=== PATIENT | male | born 1960 | race Caucasian/White ===

== ENCOUNTER 2020-01-18 09:45 | Inpatient (IN) | payer OTHER, SELFPAY ==
[2020-01-18] VITALS (41 sets, daily range): BP systolic 69–136; BP diastolic 26–102
[~2020-01-18] VITALS: Ht 188 cm; Wt 108.4 kg
--- NOTE | 2020-01-18 09:46 | NUR ---
PT BIB [facility] TO ER BED 2
--- NOTE | 2020-01-18 09:50 | NUR ---
XANDER FROM [facility] FOR ABNORMAL LABS, BUN AND CREATININE. PT PRESENTS WITH SOB, AND LABOR BREATHING W/O ACCESSORY MUSCLE USED. DISTENDED ABDOMEN AND TENDER ON PALPATION NOTICED UPON ASSESSMENT. PT DENIES CP. PT IS A&OX2, PATIENT STATES PAIN OF 10/10 AT THIS TIME; VSS; PATIENT POSITIONED FOR COMFORT; HOB ELEVATED; BEDRAILS UP X2; BED DOWN. ER MD MADE AWARE OF PT STATUS. Addendum: 01/18/20 at 1050 by MEDHR PETECHIAL HEMORRHAGES ON BILATERAL FEET WITH +3 PITTING EDEMA NOTICED. PICC LINE ON LEFT UPPER ARM IN PLACE WITH NO DRAINAGE OR BLEEDING NOTICED ON THE DRESSING.
[2020-01-18] MEDS ORDERED: HYDR-5122 PO (10:07)
[2020-01-18] MEDS ORDERED: VANC750F IV (10:07)
[2020-01-18] MEDS ORDERED: ASPI-1822 PO (10:07)
[2020-01-18] MEDS ORDERED: ACET-2619 PO (10:07)
[2020-01-18] MEDS ORDERED: MAGN2400 PO (10:07)
[2020-01-18] MEDS ORDERED: SODI650T2 PO (10:07)
[2020-01-18] MEDS ORDERED: LANTUS SUBQ (10:07)
[2020-01-18] MEDS ORDERED: BISA-213 RC (10:07)
[2020-01-18] MEDS ORDERED: MULT-1868 PO (10:07)
[2020-01-18] MEDS ORDERED: ACET-9882 PO (10:07)
[2020-01-18] MEDS ORDERED: METO25TA PO (10:07)
[2020-01-18] MEDS ORDERED: ATOR20TA PO (10:07)
[2020-01-18] MEDS ORDERED: FLOR250 PO (10:07)
[2020-01-18] MEDS ORDERED: FUROSEMIDE 40 MG/4 ML VIAL IVP ONE (10:35)
[2020-01-18] MEDS ORDERED: NITROGLYCERIN 2% 1 GM PKT TP ONE (10:35)
--- NOTE | 2020-01-18 10:40 | NUR ---
DR. MORENO IS EVALUATING PT AT BEDSIDE.
[2020-01-18 10:52] LABS: BASOPHILS # (AUTO) 0.1 K/uL (0.00-0.22); BASOPHILS % (AUTO) 0.7 % (0.0-2.0); EOSINOPHILS # (AUTO) 0.1 K/uL (0-0.4); EOSINOPHILS % (AUTO) 0.3 % (0.0-4.0); HEMATOCRIT 40.7 % (36-52); HEMOGLOBIN 13.2 g/dL (12.0-18.0); MEAN CORPUSCULAR HEMOGLOBIN 29 pg (27-31); MEAN CORPUSCULAR HGB CONC 32 g/dL (33-37); MEAN CORPUSCULAR VOLUME 90.3 fL (80-94); MONOCYTES # (AUTO) 0.8 K/uL (0.8-1.0); MONOCYTES % (AUTO) 3.7 % (1.7-9.3); NEUTROPHILS # (AUTO) 18.5 K/uL (1.8-7.7); PLATELET COUNT (AUTO) 146 K/uL (140-450); RED BLOOD CELL COUNT(AUTO) 4.51 MIL/uL (4.20-6.10); RED CELL DISTRIBUTION WIDTH 15.1 % (11.6-13.7); WHITE BLOOD COUNT (AUTO) 20.4 K/uL (4.8-10.8)
[2020-01-18 11:09] LABS: ALBUMIN 1.3 g/dL (3.4-5.0); ANION GAP 20.1 (8-16); CARBON DIOXIDE 14.5 mmol/L (21-32); POTASSIUM 5.6 mmol/L (3.5-5.1); TOTAL BILIRUBIN 0.7 mg/dL (0.0-1.0)
[2020-01-18] MEDS ORDERED: SODIUM ZIRCONIUM CYCLOSILICATE 10 GM POWD.PACK PO ONE (11:20)
[2020-01-18 11:28] LABS: BILIRUBIN,URINE NEGATIVE (NEGATIVE); BLOOD, URINE 3+ (NEGATIVE); COLOR,URINE YELLOW (YELLOW); LEUKOCYTE ESTERASE ,URINE TRACE (NEGATIVE); NITRITE, URINE NEGATIVE (NEGATIVE); PH,URINE 5.5 (5.0-9.0); UGLUCOSE NEGATIVE (NEGATIVE)
[2020-01-18 11:32] LABS: LYMPHOCYTES % (AUTO) 4.8 % (20.5-51.1); NEUTROPHILS % (AUTO) 90.5 % (42.2-75.2)
[2020-01-18 11:33] LABS: D-DIMER > 5000 ng/ml (0-400)
[2020-01-18 11:34] LABS: APPEARANCE,URINE CLOUDY (CLEAR)
[2020-01-18] MEDS ORDERED: ASPIRIN 81 MG TAB.CHEW PO ONE (11:35)
--- NOTE | 2020-01-18 11:40 | NUR ---
DR. MORENO IS REEVALUATING PT AT BEDSIDE.
[2020-01-18 11:44] LABS: RBC,URINE 11-20 (MOD) /HPF (0-5); URINE AMORPHOUS URATE 1+ /HPF (None Seen)
--- NOTE | 2020-01-18 11:45 | NUR ---
DR. GUY INTUBATED PT 7.5 @ 24 AT THE TEETH. PLACED ON MECHANICAL VENTILATION. VENTILATOR PLUGGED INTO RED OUTLET. AMBU-BAG AT BEDSIDE. WILL CONTINUE TO MONITOR.
[2020-01-18] MEDS ORDERED: ETOMIDATE 20 MG/10 ML VIAL IVP ONE ×2 (11:50)
--- NOTE | 2020-01-18 11:56 | NUR ---
Etomidate 20mg iv push via picc line on left upper arm, per dr. campos's order.
--- NOTE | 2020-01-18 11:57 | NUR ---
Dr. Rock intubated pt, RT placed pt on bib-pap.
[2020-01-18] MEDS ORDERED: SODIUM BICARBONATE 8.4% PFS 50 MEQ/50 ML SYR IVP ONE (12:05)
[2020-01-18] MEDS ORDERED: NACL 0.9% 500 ML IV ONE ×2 (12:05→16:55)
[2020-01-18] MEDS ORDERED: PIPERACILLIN/TAZOBACTAM 3.375 GM in DEXTROSE 5% 50 ML IV ONE (12:05)
[2020-01-18 12:09] LABS: FIBRINOGEN > 475 mg/dL (200-400)
[2020-01-18] MEDS ORDERED: PIPERACILLIN/TAZOBACTAM 3.375 GM VIAL IV ONE (12:10)
[2020-01-18 12:30] LABS: LACTATE DEHYDROGENASE 543 U/L (85-227)
[2020-01-18] MEDS ORDERED: PROPOFOL 1000 MG/100 ML PREMIX 100 ML IV ONE ×4 (12:33→18:33)
--- NOTE | 2020-01-18 12:57 | NUR ---
PROPOFOL STOPPED AT THIS TIME D/T BLOOD PRESSURE. DR. MORENO MADE AWARE.
[2020-01-18] MEDS ORDERED: LORazepam 2 MG/ML VIAL IVP PRN (13:15)
[2020-01-18] MEDS ORDERED: MORPHINE SULFATE 2 MG/ML SYR IVP PRN (13:15)
[2020-01-18] MEDS ORDERED: SODIUM BICARBONATE 8.4% 150 MEQ in DEXTROSE 5% 1,000 ML IV SCH (13:24)
--- NOTE | 2020-01-18 14:00 | NUR ---
FLU, RSV, AND COVID SWABS COLLECTED AT BEDSIDE.
--- NOTE | 2020-01-18 14:14 | NUR ---
PT CAN BE WOKEN UP BY VOICE/ CALLING HIS NAME. PROPOFOL RESUMED.
--- NOTE | 2020-01-18 14:24 | NUR ---
PT HAS REACHED THE RASS SCALE OF -2. HELD PROPOFOL FOR NOW.
--- NOTE | 2020-01-18 15:05 | NUR ---
PT ADMITTED FROM ER AT THIS TIME. PT AAOX0, FLACC 0, NO RESPIRATORY DISTRESS NOTED. RESPIRATIONS EVEN AND UNLABORED ON ETT TO VENT IN ACVC MODE FIO2 100%, TV500, RR16 AND PEEP 5. SKIN NON INTACT WITH SACRAL WOUND PRESENT, PICTURE IN CHART. SINUS TACHY ON HEART MONITOR. MOMIN IN PLACE. L UA PICC IN PLACE INFUSING PER ORDER, PATENT AND ASYMPTOMATIC. ON PROPOFOL. RESTRAINTS IN PLACE. SAFETY MEASURES IN PLACE. CALL LIGHT WITHIN REACH. BED IN LOW POSITION. WILL CONTINUE TO MONITOR.
--- NOTE | 2020-01-18 15:05 | NUR ---
Patient will be admitted to care of KINJAL AND RESP FAILURE. Admited to ICU. Will go to room 2. Belongings list completed. Report to DANNI GILBERT.
[2020-01-18 15:16] LABS: RSV NEGATIVE (NEGATIVE)
--- NOTE | 2020-01-18 17:02 | NUR ---
500ML BOLUS GIVEN FOR LOW BP PER DR SAUL.
--- NOTE | 2020-01-18 18:00 | NUR ---
1L BOLUS GIVEN AND 25% ALBUMIN X 2 ADMINISTERED AT THIS TIME PER DR SAUL.
[2020-01-18] MEDS ORDERED: NACL 0.9% 1,000 ML IV ONE (18:20)
[2020-01-18] MEDS ORDERED: ALBUMIN HUMAN 25% 100 ML IV ONE ×2 (18:20)
[2020-01-18 18:37] LABS: ANION GAP 19.3 (8-16); CARBON DIOXIDE 14.8 mmol/L (21-32); CREATININE 3.3 mg/dL (0.6-1.3); POTASSIUM 5.1 mmol/L (3.5-5.1)
--- NOTE | 2020-01-18 19:20 | NUR ---
REPORT GIVEN TO NIGHT NURSE FOR CONTINUITY OF CARE.
--- NOTE | 2020-01-18 20:00 | NUR ---
REPORT RECEIVED FROM ARTEMIO RAZO. SEDATED RASS -1. ETT TO VENT. AC/VC MODE FIO2 80%, TV 500, RATE 16, PEEP 5. SINUS RHYTHM ON MONITOR. IV JACK MIDLINE. ON PROPOFOL DRIP. DRY WEIGHT 110 KG. PT ON BILAT SOFT WRIST RESTRAINTS. MOMIN CATHETER IN PLACE. SKIN NON INTACT. SEE WOUND ASSESSMENT. HOB 30 DEGREES. BED LOCKED IN LOWEST POSITION. WILL CONTINUE TO MONITOR.
[2020-01-18] MEDS: MIDAZOLAM MDV 50 MG in NACL 0.9% 40 ML IV PRN ×2 (20:17→23:30)
[2020-01-18] MEDS ORDERED: MIDAZOLAM MDV 50 MG/10 ML VIAL IV ONE ×2 (20:17→23:19)
--- NOTE | 2020-01-18 20:17 | NUR ---
PROPOFOL DRIP DISCONTINUED. STARTED ON VERSED, FENTANYL AND LEVOPHED DRIPS. WILL CONTINUE TO MONITOR.
[2020-01-18] MEDS: fentaNYL 1 MG in NACL 0.9% 80 ML IV PRN (20:20)
[2020-01-18] MEDS ORDERED: NOREPINEPHRINE 4 MG/4 ML VIAL IV ONE (20:20)
[2020-01-18] MEDS ORDERED: fentaNYL 0.05 MG/ML VIAL ONE (20:20)
[2020-01-18] MEDS: NOREPINEPHRINE 4 MG in DEXTROSE 5% 250 ML IV PRN (20:21)
[2020-01-18] MEDS: HYDROCORTISONE NA SUCC 100 MG/2 ML VIAL IV SCH (21:00)
[2020-01-18] MEDS ORDERED: PIPERACILLIN/TAZOBACTAM 2.25 GM in DEXTROSE 5% 50 ML IV SCH (21:00)
[2020-01-18] MEDS ORDERED: VANCOMYCIN PER PHARMACY MC PRN (21:35)
--- NOTE | 2020-01-18 22:12 | NUR ---
PT ON LEVOPHED, FENTANYL, AND VERSED DRIPS WILL CONTINUE TO MONITOR.
[2020-01-18] MEDS ORDERED: VANCOMYCIN 2,000 MG in DEXTROSE 5% 500 ML IV ONE (22:15)
[2020-01-18] MEDS ORDERED: cefTRIAXone 1,000 MG VIAL ONE (23:54)
[2020-01-18] MEDS ORDERED: VANCOMYCIN 1,000 MG VIAL ONE (23:55)
[2020-01-19] VITALS (97 sets, daily range): BP systolic 67–119; BP diastolic 39–85
--- NOTE | 2020-01-19 00:50 | NUR ---
PT TAKEN TO CT SCAN. ACCOMPANIED BY RN, SPOT WELDER AND RT. NO COMPLICATIONS NOTED.
--- NOTE | 2020-01-19 01:17 | NUR ---
PT TRANSFERRED BACK TO ICU-2. NO COMPLICATIONS NOTED. PT STABLE. WILL CONTINUE TO MONITOR.
--- NOTE | 2020-01-19 01:20 | NUR ---
PT WAS TRANSFERRED TO CT AND BACK W/ NO COMPLICATIONS PT TOLERATED TRANSFER WELL
[2020-01-19] MEDS ORDERED: FUROSEMIDE 100 MG/10 ML VIAL IV ONE (02:35)
--- NOTE | 2020-01-19 03:30 | NUR ---
RECEIVED CALL FROM DR BOWER TO GIVE LASIX 60MG ONCE. WILL CONTINUE TO MONITOR. Addendum: 01/19/20 at 0755 by Lorenzo Richardson RN RECEIVED CALL FROM DR DONIS FOR ORDERS FROM [facility] NOT DR BOWER
[2020-01-19] MEDS ORDERED: FUROSEMIDE 40 MG/4 ML VIAL IVP ONE (03:39)
--- NOTE | 2020-01-19 04:00 | NUR ---
AM LABS DRAWN.
[2020-01-19] MEDS: HYDROCORTISONE NA SUCC 100 MG/2 ML VIAL IV SCH ×3 (04:29→21:21)
[2020-01-19] MEDS ORDERED: MIDAZOLAM MDV 50 MG/10 ML VIAL IV ONE (05:41)
[2020-01-19] MEDS: MIDAZOLAM MDV 50 MG in NACL 0.9% 40 ML IV PRN ×3 (06:02)
--- NOTE | 2020-01-19 06:15 | NUR ---
ABG RESULTS WERE REPORTED TO DR. SMITH. ORDERED 2 AMP OF BICARBONATE. DRY WALL INSTALLER WAS NOTIFIED IMMEDIATELY.
[2020-01-19 06:35] LABS: BASOPHILS % (AUTO) 0.2 % (0.0-2.0); EOSINOPHILS % (AUTO) 0.1 % (0.0-4.0); HEMATOCRIT 29.1 % (36-52); LYMPHOCYTES # (AUTO) 0.6 K/uL (2.0-11.5); LYMPHOCYTES % (AUTO) 3.9 % (20.5-51.1); MEAN CORPUSCULAR HEMOGLOBIN 29 pg (27-31); MEAN CORPUSCULAR HGB CONC 32 g/dL (33-37); MEAN CORPUSCULAR VOLUME 91.8 fL (80-94); MONOCYTES # (AUTO) 0.4 K/uL (0.8-1.0); MONOCYTES % (AUTO) 2.4 % (1.7-9.3); NEUTROPHILS # (AUTO) 14.9 K/uL (1.8-7.7); NEUTROPHILS % (AUTO) 93.4 % (42.2-75.2); PLATELET COUNT (AUTO) 96 K/uL (140-450); RED BLOOD CELL COUNT(AUTO) 3.17 MIL/uL (4.20-6.10); RED CELL DISTRIBUTION WIDTH 15.6 % (11.6-13.7)
[2020-01-19 06:38] LABS: HEMOGLOBIN 9.4 g/dL (12.0-18.0); WHITE BLOOD COUNT (AUTO) 15.7 K/uL (4.8-10.8)
[2020-01-19] MEDS ORDERED: SODIUM BICARBONATE 8.4% PFS 50 MEQ/50 ML SYR IVP ONE ×2 (06:42→06:45)
--- NOTE | 2020-01-19 06:50 | NUR ---
FIO2 WAS TITRATED DOWN FROM 100% TO 60% THROUGHOUT THE NIGHT PT TOLERATED WELL
[2020-01-19 06:59] LABS: ALBUMIN 1.3 g/dL (3.4-5.0); ANION GAP 20.3 (8-16); CARBON DIOXIDE 14.3 mmol/L (21-32); POTASSIUM 4.6 mmol/L (3.5-5.1); TOTAL BILIRUBIN 0.7 mg/dL (0.0-1.0)
--- NOTE | 2020-01-19 08:15 | NUR ---
TITRATE FIO2 TO 50%. SAT REMAIN STABLE AT 95%. WILL CONTINUE TO MONITOR
[2020-01-19] MEDS ORDERED: MIDAZOLAM MDV 100 MG in NACL 0.9% 80 ML IV PRN (09:00)
--- NOTE | 2020-01-19 09:00 | NUR ---
INCONTINENT OF LARGE AM[place] LOOSE GREENISH BROWN STOOLS. BATH GIVEN. INCONTINENT DERMATITIS ON PERINEAL AND BUTTOCKS AREAS. OPEN SKIN AREA ON RT AND LEFT BUTTOCKS.
--- NOTE | 2020-01-19 09:21 | NUR ---
PATIENT HAS BEEN SCREENED AND CATEGORIZED HIGH NUTRITION RISK. PATIENT WILL BE SEEN WITHIN 1-2 DAYS OF ADMISSION. 01/19/20-01/20/[address]
--- NOTE | 2020-01-19 09:50 | NUR ---
DR. BANDAR DE LA CRUZ CAME IN TO INSERT VENU CATHETER, JOSIE RAZO ASSISTED AT BEDSIDE, TIME OUT AT 0930, VENU CATHETER INSERTED TO RIGHT INTRAJUGULAR VEIN, CXR CONFIRMED PLACEMENT, DR. ARAUJO ORDERED HD TODAY, CALLED [facility], WILL COME LATER.
--- NOTE | 2020-01-19 10:30 | NUR ---
DR. PUGA CAME IN PER DR. SAUL REQUEST, HE SPOKE TO PATIENT'S AND OBTAINED CONSENT FOR PARACENTESIS, TWO RNS WITNESS OF THE CONSENT, DR. PUGA PERFORMED PARACENTESIS AT BEDSIDE, JOSIE RAZO ADMINISTRATIVE ASSISTANT RECEPTIONIST, DRAINED 5750ML OF FLUID, SENT SAMPLES TO LAB.
[2020-01-19] MEDS ORDERED: Z-GUARD PASTE TP ONE (10:47)
--- NOTE | 2020-01-19 11:47 | NUR ---
DISCHARGE PLANNING: THIS IS A 59 Y/O MALE PATIENT FROM HOME, WHO WAS BIBA DUE TO SHORTNESS OF BREATH AND LOWER EXTREMITY SWELLING. PAST MEDICAL HISTORY INCLUDE STROKE, DIABETES, HTN AND OBESITY. ORALLY INTUBATED TO VENT, FIO2 50%, O2 SAT 93%. SEDATED WITH FENTANYL AND VERSED DRIPS. ON LEVOPHED DRIP. INITIAL DIAGNOSIS OF ACUTE KIDNEY INJURY AND RESPIRATORY FAILURE. CURRENT LABS INCLUDE WBC 15.7, H/H 9.4/29.1, NA/K 134/4.6, BUN/CREA 110/3.0, ALB 1.3, D DIMER >500 AND FIBRINOGEN >475. COVID 19 PENDING. NEGATIVE FOR INF A AND B AND RSV ANTIGEN. ON ROCEPHIN AND SOLU-CORTEF. CURRENT CXR SHOWED NO SIGNIFICANT INTERVAL CHANGE COMPARED TO PRIOR STUDY. ID, NEPHRO AND CARDIO CONSULTS IN PLACE. DC PLAN PENDING ON PATIENT'S RESPONSE TO TREATMENT. Addendum: 01/20/20 at 1131 by Ludy Camejo S/P PARACENTESIS YESTERDAY WITH DR PANDEY - 5750 ML OUT. S/P RIGHT IJ VENU CATH WITH DR. DE LA CRUZ YESTERDAY. HD YESTERDAY. ETT TO VENT FIO2 30%, O2 SAT 100%. SEDATED WITH VERSED AND FENTANYL. ON LEVOPHED DRIP. Addendum: 01/22/20 at 1044 by Ludy Camejo CM STILL IN ICU, ORALLY INTUBATED TO VENT-FIO2 28%, O2 SAT 94%. SEDATED WITH FENTANYL AND VERSED. WITH MULTIPLE PRESSURE INJURIES TO SACRALCOCCYX, R/L BUTTOCKS AND LEFT HEEL. ON HD-LAST HD ON 01/19/2020. NEGATIVE FOR COVID. ON VANCOMYCIN AND SOLU-CORTEF. SEEN BY ATTENDING - F/U BLOOD CS. SEEN BY NEPHRO - NO NEED FOR HD YESTERDAY. Addendum: 01/22/20 at 1522 by Ludy Camejo CM RECEIVED A CALL FROM CHARGE NURSE AMRITA, STATING THAT SHE RECEIVED A CALL FROM PATIENT'S BROTHER STATING NOT TO RELEASE ANY INFORMATION TO [facility]. CONTACTED [facility], ABLE TO SPEAK TO DIVINA. PER DIVINA PATIENT DOES NOT HAVE A MEDICAL DECISION MAKER ASSIGNED BECAUSE PATIENT WAS ALERT AND ORIENTED AND MAKES HIS OWN MEDICAL DECISIONS. HE ALSO STATED THEY HAVE BEEN ASKING MARRIAGE CERTIFICATE FROM [facility] AND [facility] WAS NOT ABLE TO PROVIDE ONE. FELICIANO (DAUGHTER) IS THE NEXT OF KIN HOWEVER FELICIANO LIVES OUT OF STATE. RECEIVED A CALL FROM JUANITA AVALOSN LUBA [phone], CLAIMING THAT SHE IS THE ELDEST DAUGHTER OF THE PATIENT, HOWEVER SHE LIVES OUT OF STATE ([place]) INFORMED HER THAT I DO NOT HAVE HER NAME LISTED IN OUR FILE. I ASKED HER IF SHE CAN SEND ME ANY DOCUMENTATIONS TO PROVE THAT SHE IS THE DAUGHTER OF THE PATIENT. SHE STATED SHE WILL BE SENDING ME A CERTIFICATE TO PROVE. PROVIDED HER WITH FAX NUMBER AND EMAIL TO SEND IT. CONTACTED PATIENT'S DAUGHTER FELICIANO AT [phone] AND WAS ANSWERED BY [facility]UKAS WHEELER. PER LUKAS, FELICIANO WENT HOME TO [place]. I ASKED HER IF SHE HAS FELICIANO'S NUMBER AND IF SHE AND THE PATIENT ARE . SHE WAS UPSET AND STATED "WE ARE NOT BUT WE HAVE BEEN LIVING TOGETHER FOR 7 YEARS, I YOU WANT TO TAKE OUT ALL MY RIGHTS FINE. GO AHEAD" AND HANG UP. GOT FELICIANO'S NUMBER FROM ICU CHARGE NURSE [phone]. CONTACTED THE PROVIDED NUMBER, ABLE TO SPEAK TO FELICIANO. SHE CONFIRMED THAT JUANITA IS HER OLDER SISTER AND THEY BOTH LIVE OUT OF STATE ([place]). SHE ALSO STATED THAT SINCE L[facility] HAS BEEN THE ONE TAKING CARE OF THEIR FATHER, SHE SHOULD BE ALLOWED TO GET UPDATES REGARDING HER FATHER'S CONDITION. I EXPLAINED TO HER THAT FOR UPDATES, YES WE CAN PROVIDE THAT TO [facility] BUT SINCE [facility]AS AND THE PATIENT ARE NOT LEGALLY THE NEXT OF KIN WILL BE THE ONES WHO WILL BE MAKING MEDICAL DECISIONS FOR THE PATIENT. AND SHE VERBALIZED UNDERSTANDING. I ALSO INFORMED HER THAT HER AND JUANITA NEED TO DECIDE WELL WHO WILL BE THE DESIGNATED SPOKESPERSON FOR THE FAMILY TO GET UPDATES, SINCE IT WILL BE HARD FOR THE NURSES TO COME TO THE PHONE AND PROVIDE INFORMATION TO EVERYBODY CALLING. SHE VERBALIZED UNDERSTANDING. RECEIVED AN EMAIL FROM JUANITA VERDUZCO WITH A CERTIFICATE ATTACHMENT. CONTACTED JUANITA TO CONFIRM TO HER THAT I RECEIVED THE EMAIL. AND I ALSO DISCUSSED WITH HER THAT HER AND FELICIANO NEED TO DISCUSS/DECIDE ON WHO WILL BE THE DESIGNATED SPOKESPERSON. SHE STATED "YES, I WILL TALK TO HER." CANDY OF ADMITTING INFORMED TO UPDATE FELICIANO'S CONTACT INFORMATION. Addendum: 01/23/20 at 1209 by Ludy Camejo CM STILL ORALLY INTUBATED, SEDATED. FAILED WEANING TRIALS YESTERDAY. WILL TRY TO AGAIN TODAY. SEEN BY NEPHRO - NO NEED FOR HD TODAY, PROBABLY COULD DC HD CATH SOON, AVOID NEPHROTOXIC AGENTS. SEEN BY ATTENDING - CONT VENT AND WEANING TRIAL. BLOOD AND SPUTUM MRSA POSITIVE, ON VANCOMYCIN. 2ND BLOOD CS NO GROWTH AFTER 24 HOURS. DC PLAN PENDING ON PATIENT'S RESPONSE TO TREATMENT. Addendum: 01/23/20 at 1210 by Ludy Camejo CM CORRECTION ON THE NOTES MADE [place] 01/19/2020 [place] [address]: PATIENT IS FROM [place] AND NOT FROM HOME. Addendum: 01/26/20 at 0947 by Ludy Camejo CM STILL ON ETT TO VENT, FIO2 28%, O2 SAT 100%. SEDATED WITH VERSED AND FENTANYL. ON LEVOPHED DRIP. SEEN BY NEPHRO - HD CATH DC'D YESTERDAY, AVOID NEPHROTOXIC AGENTS. SEEN BY ID - CONTINUE VANCOMYCIN THERAPY, CONSIDER ECHOCARDIOGRAM FOR FURTHER EVALUATION. CURRENT CXR SHOWED NO SIGNIFICANT INTERVAL CHANGE IN THE LUNG VOLUMES WITH INCREASED PULMONARY VASCULARITY AND BIBASILAR ATELECTASIS/INFILTRAE/TRACE PLEURAL EFFUSIONS. LUE US SHOWED NO EVIDENCE OF DVT. DC PLAN PENDING ON PATIENT'S RESPONSE TO TREATMENT. Addendum: 01/27/20 at 1117 by Ludy Camejo CM STILL IN ICU, ORALLY INTUBATED TO VENT FIO2 24%, O2 SAT 99%. FOR VENT WEANING AGAIN TODAY, ABLE TO DO 2 HOURS YESTERDAY. ON SEDATION VACATION AND NOT ON ANY DRIPS. CURRENT LABS INCLUDE WBC 15.3, H/ 10.2/31.9, 144/3.4, BUN/CREA 77/1.8 AND ALB 2.3. ON SOLU CORTEF. BLOOD AND SPUTUM MRSA POSITIVE. Addendum: 01/28/20 at 0950 by Ludy Camejo CM EXTUBATED YESTERDAY 01/27/2020 AT 1745. ON O2 AT 3 LPM/NC. ON SOLU CORTEF AND VANCOMYCIN. Addendum: 01/29/20 at 1322 by Shaneka Michaels CM DC PLANING: K+ 2.4 REPLACED POTASSIUM 80 MEQ GT. STILL NEEDS O2 3L/NC. SEEN BY DIRECTOR OF CONTENT AND PROGRAMMING DR JOANNE Menendez ORDERED TO CONTINUE CURRENT THERAPY NO INDICATION FOR BETA MISTY. DC PLANNING TO GO BACK TO [facility] WHEN STABLE. CM TO FOLLOW. Addendum: 02/03/20 at 1339 by Ludy Camejo RECEIVED A CALL FROM PATIENT'S DAUGHTER TORIE VERDUZCO [phone], STATING THAT BOTH HER AND SISTER FELICIANO DECIDED NOT TO PROVIDE ANY INFORMATION TO PATIENT'S LIVING PARTNER [facility]. EXPLAINED TO HER THE REASON WHY HER AND FELICIANO WAS CONTACTED BECAUSE PATIENT CANNOT DECIDE FOR HIMSELF BECAUSE HE WAS INTUBATED AND LEGALLY MEDICAL DECISIONS WILL COME FROM THE CHILDREN SINCE LUKAS AND THE PATIENT ARE NOT . PER THE RN ON SUNDAY THE PATIENT HIMSELF REQUESTED TO SPEAK TO [facility]. SHE ALSO STATED THAT [facility], HAS BEEN WITHDRAWING THE PATIENT'S SS TO PAY FOR BILLS. EXPLAINED TO HER THAT WITH FINANCIAL ISSUES, I CANNOT HELP. IT HAS TO COME FROM THE PATIENT BECAUSE HE IS MORE COHERENT AT THIS TIME. I ALSO INFORMED HER THAT THE TENTATIVE PLAN FOR THE PATIENT TO GO TO [facility]S ORDER. SHE ALSO STATED THAT FELICIANO AND HER HAVE DECIDED FOR THE PATIENT NOT TO GO BACK TO [facility], BECAUSE THE PATIENT DEVELOPED BEDSORES IN THERE. I ASKED HER IF THEY DISCUSSED IT WITH [facility], SHE ANSWERED NO. SHE STATED HER AND FELICIANO HAVE DECIDED TOO THAT THEY WANT THE PATIENT TO GO TO [place] WHERE SHE AND FELICIANO ARE LOCATED. INFORMED HER THAT WITH THE PATIENT'S CONDITION AT THIS TIME, IT IS NOT APPROPRIATE FOR HIM TO TRAVEL. SHE VERBALIZES UNDERSTANDING. Addendum: 02/03/20 at 1649 by Ludy Camejo RECEIVED AN ORDER [facility]. CONTACTED PATIENT'S DAUGHTER FELICIANO AT FIRST SHE SAID NO. HOWEVER I EXPLAINED IT TO HER, THAT WITH THE SITUATION RIGHT NOW IT WILL BE HARDER TO FIND ACCEPTING SNF AND SHE VERBALIZED UNDERSTANDING BY SAYING "IT IS OK, HE CAN GO BACK [facility]." DC DISTRIBUTION TRANSFORMER ASSEMBLER MADE AWARE. [facility] MADE AWARE. SHE STATED OK WITH JUST ONE COVID AND THEY CAN RETEST IN THEIR FACILITY. DR. LE MADE AWARE. RECEIVED A CALL FROM DR. LE TO HOLD THE DC. HE WANTS TO REPEAT THE BLOOD CS. [facility]ADE AWARE. CHUCHO OF [facility] MADE AWARE. PATIENT'S DAUGHTER FELICIANO MADE AWARE.
[2020-01-19] MEDS ORDERED: Z-GUARD PASTE TP PRN (12:00)
[2020-01-19] MEDS: Z-GUARD PASTE TP SCH (13:12)
[2020-01-19] MEDS: fentaNYL 1 MG in NACL 0.9% 80 ML IV PRN (13:12)
[2020-01-19] MEDS: NOREPINEPHRINE 4 MG in DEXTROSE 5% 250 ML IV PRN (13:13)
--- NOTE | 2020-01-19 13:23 | NUR ---
ADEL[facility] PATTERSON CAME IN, WILL START HD.
[2020-01-19] MEDS ORDERED: DEXTROSE 50% 50 ML SYR IVP PRN (13:40)
[2020-01-19] MEDS ORDERED: PANTOPRAZOLE 40 MG INJ VIAL IVP SCH (13:57)
--- NOTE | 2020-01-19 14:05 | NUR ---
Wound consult pending, Pt. had procedures this morning and at this time pt. is on dialysis and BP 70/52. Addendum: 01/19/20 at 1500 by Linh Khanna RN ([facility]) Admission wound photo reviewed with full thickness skin loss to sacral coccyx and the bilateral feet ischemia/ erythema toes to plantar and dorsal areas. wound care started per protocol, poc discussed with CN, recommend flow study Bilateral lower extremities.
[2020-01-19] MEDS: NACL 0.9% 1,000 ML IV SCH (14:34)
--- NOTE | 2020-01-19 14:35 | NUR ---
IV CHANGED TO 0.9NS AT 75 ML/HR
[2020-01-19] MEDS ORDERED: NOREPINEPHRINE 16 MG in DEXTROSE 5% 250 ML IV PRN (14:40)
--- NOTE | 2020-01-19 14:52 | NUR ---
DEPOSIT CLERK NOTE: Patient's Orientation Person Situation Place Time Information Provided By MAIKEL - CHARGE NURSE Comments PATIENT IS SELF-RESPONSIBLE FOR MEDICAL DECISIONS. Oil Paint Shader, Realtionship and Phone Number [facility] WHEELER [phone] [facility] Power of Ambulance Driver Paramedic No Does Patient Have a POLST No Identifying Problems No Social Work Triggers Is A Social Work Consult Needed No Mandate Report Filed No Explanation Of Identifying Problems PATIENT IS A 59-YEAR-OLD MALE ADMITTED FOR KINJAL RESPIRATORY FAILURE. PATIENT HAS PMHX OF STROKE, DIABETES, HYPERTENSION, AND OBESITY. [facility] - [phone] Pre-Admission Level Of Functioning Status Assist With ADL Level Of Functioning Comment PATIENT IS ABLE TO FEED HIMSELF, BUT REQUIRES ASSISTANCE WITH ALL OTHER ADLS. Prior Resources/Services Used In Last 12 Months SNF Rehab/Skilled Prior DME Wheelchair Financial Issues No Known Financial Issue Factors/Needs SNF/NH Placement Discharge Plan Comments TENTATIVE DISCHARGE PLAN IS FOR PATIENT TO RETURN TO [facility]. DC Plan Status Initiated
--- NOTE | 2020-01-19 15:10 | NUR ---
ECHOCARDIOGRAM PENDING, R/O COVID-19
--- NOTE | 2020-01-19 16:30 | NUR ---
HEMODIALYSIS COMPLETED.
--- NOTE | 2020-01-19 17:03 | NUR ---
01/19/20 RD INITIAL ASSESSMENT COMPLETED PLEASE REFER TO NUTRITION ASSESSMENT UNDER CARE ACTIVITY FOR ESTIMATED NUTRITIONAL NEEDS. 1. CONSIDER ENTERAL NUTRITION WITH NEPRO 1.8 @ 35 ML/HR WITH PROSOURCE BID -THIS WILL PROVIDE 1632 CALORIES AND 98 GM OF PROTEIN, WHICH MEETS 100% OF NUTRIENT NEEDS 2. CONSIDER VITAMIN C AND ZINC FOR WOUND HEALING 3. IF PATIENT IS EXTUBATED RECOMMEND SWALLOW EVALUATION 4. RD TO FOLLOW-UP 2-3 DAYS, HIGH RISK [address]VIN JOHNSON RD
[2020-01-19] MEDS: BLOOD GLUCOSE MONITORING 1 DEV DEV FS SCH (17:25)
[2020-01-19] MEDS: INSULIN LISPRO SLIDING SCALE 100 UNITS/ML VIAL SUBQ PRN (17:27)
--- NOTE | 2020-01-19 18:00 | NUR ---
ETT TO VENT TV 500, FI02 50% AC 16/MIN PEEP 5. NO RESP. DISTRESS NOTED. RASS -1. FENTANYL DRIP AT 0.5 MCG/KG/MIN.
--- NOTE | 2020-01-19 19:00 | NUR ---
REPORT GIVEN TO AHSAN RAZO.
--- NOTE | 2020-01-19 19:15 | NUR ---
RECEIVED BEDSIDE REPORT FROM MORNING NURSE, PATIENT SEDATED RASS-2, EET TO VENT WITH VENT, FIO2 40%, VT 500, R 16, PEEP 5. O2 SAT ABOVE 93%. BILATERAL LUNGS SOUND DIMINISHED, NO ACUTE RESPIRATORY DISTRESS NOTED. SR ON FULL TIME BABYSITTER. PICC LINE TO LEFT UPPER ARM, DIALYSIS VENU CATH WITH PIG TO RIGHT IJ, RUNNING WITH LEVOPHED 11MCG/MIN= 10.31ML/HR, FENTANYL 50MCG/HR= 5ML/HR, AND NS 75ML/HR. F/C IN PLACE. GEN BODY WEAKNESS NOTED. BILATERAL WRISTS RESTRAINT ON FOR SAFETY. PRESSURE ULCER TO RIGHT BUTTOCK 4X3X0,1, LEFT BUTTOCK 3X2X0,1, SACRAL 2X0.5X0.1. DERMATITIS TO GROIN AREA, RASH TO BILATERAL FEET AND HANDS. BILATERAL SIDERAILS UP, BED IN LOW POSITION, CALL LIGHT WITHIN REACH. WILL CONTINUE TO MONITOR.
[2020-01-19 23:34] LABS: GLUCOSE,BODY FLUID 270 mg/dL
[2020-01-20] VITALS (104 sets, daily range): BP systolic 92–143; BP diastolic 49–99
[2020-01-20] MEDS: INSULIN LISPRO SLIDING SCALE 100 UNITS/ML VIAL SUBQ PRN ×4 (01:16→17:42)
[2020-01-20] MEDS: Z-GUARD PASTE TP SCH ×2 (01:18→11:53)
[2020-01-20] MEDS: NACL 0.9% 1,000 ML IV SCH ×2 (03:00→17:21)
[2020-01-20] MEDS: HYDROCORTISONE NA SUCC 100 MG/2 ML VIAL IV SCH ×3 (05:00→20:06)
[2020-01-20 05:11] LABS: HEMATOCRIT 33.6 % (36-52); HEMOGLOBIN 10.8 g/dL (12.0-18.0); MEAN CORPUSCULAR HEMOGLOBIN 29 pg (27-31); MEAN CORPUSCULAR HGB CONC 32 g/dL (33-37); PLATELET COUNT (AUTO) 168 K/uL (140-450); RED BLOOD CELL COUNT(AUTO) 3.74 MIL/uL (4.20-6.10); RED CELL DISTRIBUTION WIDTH 15.6 % (11.6-13.7); WHITE BLOOD COUNT (AUTO) 22.6 K/uL (4.8-10.8)
[2020-01-20 05:33] LABS: ALBUMIN 1.2 g/dL (3.4-5.0); ANION GAP 14.2 (8-16); CARBON DIOXIDE 22.7 mmol/L (21-32); CREATININE 2.9 mg/dL (0.6-1.3); POTASSIUM 3.9 mmol/L (3.5-5.1); TOTAL BILIRUBIN 0.4 mg/dL (0.0-1.0)
[2020-01-20 05:34] LABS: PHOSPHORUS 6.9 mg/dL (2.5-4.9)
--- NOTE | 2020-01-20 05:55 | NUR ---
PHONE CALL FROM PTS [facility], UPDATED ON PTS PRESENT CONDITION. WANTS MD TO CALL HER FOR UPDATE.WILL ENDORSE TO NEXT SHIFT
[2020-01-20] MEDS: BLOOD GLUCOSE MONITORING 1 DEV DEV FS SCH ×4 (06:02→17:41)
[2020-01-20 06:10] LABS: HEPATITIS A ANTIBODY IGM Negative (Negative); HEPATITIS B CORE AB TOTAL Negative (Negative); HEPATITIS B SURFACE ANTIBODY Non Reactive (.); HEPATITIS B SURFACE ANTIGEN Negative (Negative)
[2020-01-20 06:12] LABS: LYMPHOCYTES % (MANUAL) 1 % (20-46); MONOCYTES % (MANUAL) 4 % (5-12)
--- NOTE | 2020-01-20 07:30 | NUR ---
RECEIVED REPORT FROM SUPERINTENDENT CUSTODIAN JANITOR RN. PT IS ETT TO VENT, LIP LINE 23 CM. PERRL 3MM. AC/VC FIO2 30%, TV 500, RATE 16, PEEP 5. SEDATED WITH FENTANYL RASS -2. SINUS RHYTHM ON MONITOR WITH PVC. IV JACK PICC RUNNING FENTANYL RUNNING AT 4ML/HR, DRY WEIGHT 110 KG. RIGHT IJ VENU WITH PIGTAIL RUNNING LEVOPHED AT 15MCG/MIN. PT HAS ANASARCA WITH PITTING EDEMA. PT ON BILATERAL SOFT WRIST RESTRAINTS. MOMIN CATHETER IN PLACE, DRAINING CLEAR YELLOW URINE. SKIN NON INTACT. SEE WOUND ASSESSMENT. HOB 30 DEGREES. BED LOCKED IN LOWEST POSITION. WILL CONTINUE TO MONITOR. Addendum: 01/20/20 at 1914 by Loyd Crawford RN DRY WT 110KG
--- NOTE | 2020-01-20 08:30 | NUR ---
MOMIN CARE DONE, ORAL CARE DONE. PT OPENS EYES TO NAME, BUT DOES NOT REALLY FOLLOW COMMANDS.
[2020-01-20] MEDS: PANTOPRAZOLE 40 MG INJ VIAL IVP SCH (08:43)
[2020-01-20] MEDS: fentaNYL 1 MG in NACL 0.9% 80 ML IV PRN (08:45)
--- NOTE | 2020-01-20 09:40 | NUR ---
DR SAUL SEEN PT, ASKED HIM IF PT NEEDS NGT. DR SAUL SAID TO CONSULT DR PUGA. PAGED DR HARRIS, WAITING FOR CALL BACK.
--- NOTE | 2020-01-20 09:52 | NUR ---
RECEIVED ON A [employer] R860 VENTILATOR PLUGGED INTO RED OUTLET TOLERATING WELL TO AN ENDOTRACHEAL TUBE #7.5 SECURED WITH AN ANCHOR FAST AT 23 cm TEETH/GUM LINE CUFF PRESSURE CHECKED NOTED AMBU BAG AT BEDSIDE RESTING WELL WITHOUT DISTRESS NOTED GOOD CHEST RISE AIRWAY PATENT
--- NOTE | 2020-01-20 10:04 | NUR ---
DR NEVAREZ SEEN PT, ORDERED NGT.
[2020-01-20] MEDS: ALBUMIN HUMAN 25% 100 ML IV SCH ×2 (11:26→17:21)
[2020-01-20] MEDS: CALCIUM GLUCONATE 10% 1,000 MG in NACL 0.9% 50 ML IV SCH (11:49)
--- NOTE | 2020-01-20 12:16 | NUR ---
RESTING COMFORTABLY EQUAL CHEST RISE NO DISTRESS NOTED
--- NOTE | 2020-01-20 13:35 | NUR ---
NO EVIDENCE OF PULMONARY DISTRESS NOTED GOOD CHEST RISE DEEP TRACHEAL SUCTION FOR LARGE SEMI THICK YELLOW SECRETIONS AIRWAY PATENT
--- NOTE | 2020-01-20 13:35 | NUR ---
SATURATION 100% ON FIO2 OF 30% TITRATED FIO2 TO 28% CATALINA/RN AND VERO/RN "O" NOTIFIED
[2020-01-20 13:44] LABS: HEPATITIS A ANTIBODY IGM NEGATIVE (NEGATIVE); HEPATITIS B CORE AB TOTAL NEGATIVE (NEGATIVE)
[2020-01-20 13:45] LABS: HEPATITIS B SURFACE ANTIBODY NON REACTIVE (NONREACTIVE); HEPATITIS B SURFACE ANTIGEN NEGATIVE (NEGATIVE)
--- NOTE | 2020-01-20 14:06 | NUR ---
SPOKE WITH KRUPA HENRY TO START TUBE FEEDING.
--- NOTE | 2020-01-20 14:36 | NUR ---
DR RUBIO Y SEEN PT. MADE DR RUBIO AWARE OF THE EKG STRIP, ELEVATED TROP AND D DIMER.
--- NOTE | 2020-01-20 15:55 | NUR ---
PT WAKING UP, PT UNDERSTANDING SOME QUESTIONS, EYE TRACKING. PT ABLE TO MOVE BILATERAL ARMS AND TRYING TO PULL TUBES. WILL KEEP REORIENT PT AND INCREASE FENTANYL.
[2020-01-20 17:12] LABS: SPECIMENTYPE,BODY FLUID THORACENTESIS
[2020-01-20 17:13] LABS: APPEARANCE,SPUN,BODY FLUID HAZY (CLEAR); APPEARANCE,UNSPUN,BODY FLUID SLIGHTLY CLOUDY (CLEAR); COLOR,BODY FLUID LT YELLOW (LT YELLOW); TOTAL VOLUME,BODY FLUID 8 mL
--- NOTE | 2020-01-20 17:41 | NUR ---
STABLE GOOD CHEST RISE AIRWAY PATENT
--- NOTE | 2020-01-20 18:00 | NUR ---
PT SHAKING HIS HEAD LEFT AND RIGHT, WILL START VERSED TO KEEP RASS -1.
[2020-01-20] MEDS: MIDAZOLAM MDV 50 MG in NACL 0.9% 40 ML IV PRN (18:17)
[2020-01-20] MEDS: CHLORHEXADINE GLUC 2% CLOTH TP SCH (18:18)
[2020-01-20] MEDS: MUPIROCIN CA NASAL 2% 1GM TUBE NS SCH (19:04)
--- NOTE | 2020-01-20 19:15 | NUR ---
BEDSIDE REPORT RECEIVED FROM AM SHIFT RN. PT SEDATED, RASS -1. SINUS RHYTHM ON MONITOR. ETT TO VENT. ON AC/VC MODE FIO2 28%, TV 500, RATE 16, PEEP 5. IV SITE, JACK PICC LINE INTACT, PATENT, GOOD BLOOD RETURN INFUSING VERSED 2MG/HR, ALBUMIN 50ML/HR, FENTANYL 55MCG/MIN AND RIJ CENTRAL LINE W/ PIGTAIL INTACT, PATENT, GOOD BLOOD RETURN INFUSING LEVOPHED 4MCG/MIN AND NS 80ML/HR. OGT TO FEEDING. NO RESIDUALS NOTED. PT ON SOFT BILAT WRIST RESTRAINTS, NO SKIN BREAKDOWN NOTED. SKIN NON INTACT, SEE WOUND ASSESSMENT. MOMIN CATHETER IN PLACE. DRY WEIGHT 110KG. HOB 30 DEGREES. BED LOCKED IN LOWEST POSITION. WILL CONTINUE TO MONITOR.
--- NOTE | 2020-01-20 21:00 | NUR ---
SCHEDULED MEDICATIONS GIVEN. PT SEDATED RASS -1. REPOSITIONED PT. HOB 30 DEGREES. BED LOCKED IN LOWEST POSITION. WILL CONTINUE TO MONITOR.
[2020-01-20 21:03] LABS: POLYNUCLEAR, BODY FLUID 75 %; RBC, BODY FLUID 388 /cu. mm.; WBC, BODY FLUID 418 /cu. mm.
--- NOTE | 2020-01-20 21:33 | NUR ---
RECEIVED REPORT FROM AM SHIFT. PATIENT SEEN AND ASSESSED. PATIENT IS INTUBATED WITH ETT SIZE 7.5 AND SECURED WITH ANCHOR-FAST AT 23cm. AUSCULTATION REVEALS BILATERAL COARSE BREATH SOUNDS. NOTICED ADEQUATE BILATERAL CHEST RISE AND FALL. PATIENT ON VENT SETTINGS AC/VC 16, 500, +5, 30% WITH SPO2 OF 100%. VENT PLUGGED IN RED OUTLET, HOB > 30 DEGREES, AMBU BAG AT BEDSIDE, AND ALARMS SET AND AUDIBLE. PATIENT IS IN NO RESPIRATORY DISTRESS AT THIS TIME. SUCTION SMALL YELLOW THICK SECRETIONS FROM TUBE. AIRWAY IS PATIENT. WILL CONTINUE TO MONITOR PATIENT.
--- NOTE | 2020-01-20 23:30 | NUR ---
PT SEDATED, RASS -1. OPENS EYES TO NAME, LIGHT SHAKING. HOB 30 DEGREES. BED LOCKED IN LOWEST POSITION. SAFETY PRECAUTIONS IN PLACE. WILL CONTINUE TO MONITOR.
[2020-01-21] VITALS (80 sets, daily range): BP systolic 107–139; BP diastolic 51–93
[2020-01-21] MEDS: ALBUMIN HUMAN 25% 100 ML IV SCH ×4 (00:10→17:34)
[2020-01-21] MEDS: CALCIUM GLUCONATE 10% 1,000 MG in NACL 0.9% 50 ML IV SCH (00:10)
[2020-01-21] MEDS: Z-GUARD PASTE TP SCH ×2 (01:00→13:35)
--- NOTE | 2020-01-21 01:00 | NUR ---
PT SEDATED, RASS -1. RESPIRATIONS EVEN AND UNLABORED. CHEST RISE IS SYMMETRICAL. HOB 30 DEGREES. BED LOCKED IN LOWEST POSITION. SAFETY PRECAUTIONS IN PLACE. WILL CONTINUE TO MONITOR
[2020-01-21] MEDS ORDERED: MIDAZOLAM MDV 50 MG/10 ML VIAL IV ONE (01:53)
[2020-01-21] MEDS: MIDAZOLAM MDV 50 MG in NACL 0.9% 40 ML IV PRN (01:58)
--- NOTE | 2020-01-21 03:20 | NUR ---
PT SEDATED, RASS -1. RESPIRATIONS EVEN AND UNLABORED. SAFETY PRECAUTIONS IN PLACE. WILL CONTINUE TO MONITOR
--- NOTE | 2020-01-21 04:10 | NUR ---
AM LABS DRAWN
[2020-01-21] MEDS: HYDROCORTISONE NA SUCC 100 MG/2 ML VIAL IV SCH ×3 (04:59→21:12)
[2020-01-21 05:22] LABS: HEMATOCRIT 27.7 % (36-52); MEAN CORPUSCULAR HEMOGLOBIN 30 pg (27-31); MEAN CORPUSCULAR HGB CONC 33 g/dL (33-37); MEAN CORPUSCULAR VOLUME 90.4 fL (80-94); PLATELET COUNT (AUTO) 92 K/uL (140-450); RED BLOOD CELL COUNT(AUTO) 3.06 MIL/uL (4.20-6.10); RED CELL DISTRIBUTION WIDTH 15.4 % (11.6-13.7); WHITE BLOOD COUNT (AUTO) 12.5 K/uL (4.8-10.8)
[2020-01-21 05:35] LABS: ALBUMIN 2.2 g/dL (3.4-5.0); ANION GAP 18.7 (8-16); CARBON DIOXIDE 20.7 mmol/L (21-32); CREATININE 2.9 mg/dL (0.6-1.3); POTASSIUM 3.4 mmol/L (3.5-5.1); TOTAL BILIRUBIN 0.4 mg/dL (0.0-1.0)
[2020-01-21 05:36] LABS: MAGNESIUM 2.2 mg/dL (1.8-2.4)
[2020-01-21] MEDS: NACL 0.9% 1,000 ML IV SCH ×2 (05:40→17:26)
[2020-01-21] MEDS: BLOOD GLUCOSE MONITORING 1 DEV DEV FS SCH ×5 (06:00→23:19)
[2020-01-21] MEDS: INSULIN LISPRO SLIDING SCALE 100 UNITS/ML VIAL SUBQ PRN ×4 (06:15→23:20)
--- NOTE | 2020-01-21 06:39 | NUR ---
PATIENT STILL REMAINS ON VENT SUPPORT. FiO2 HAS BEEN TITRATED TO 25%. AIRWAY IS PATENT. EQUAL CHEST RISE AND FALL.TUBE IS SECURED AND INTACT. PATIENT IN NO DISTRESS AT THIS TIME. WILL CONTINUE TO MONITOR.
--- NOTE | 2020-01-21 06:50 | NUR ---
DR SAUL IN TO ASSESS PT.
--- NOTE | 2020-01-21 07:10 | NUR ---
PT REMAINS ON DOCUMENTED SETTINGS. NO DISTRESS NOTED AT THIS TIME. ETT IS SECURED AND INTACT. VENT PLUGGED INTO RED OUTLET, ALARMS ON AND FUNCTIONING, AMBU BAG AT BEDSIDE. WILL CONTINUE TO MONITOR.
--- NOTE | 2020-01-21 07:26 | NUR ---
RECEIVED REPORT FROM FIRMWARE MANAGER
[2020-01-21] MEDS: PANTOPRAZOLE 40 MG INJ VIAL IVP SCH (08:39)
[2020-01-21 08:45] LABS: LYMPHOCYTES % (MANUAL) 6 % (20-46); MONOCYTES % (MANUAL) 5 % (5-12)
[2020-01-21] MEDS: fentaNYL 1 MG in NACL 0.9% 80 ML IV PRN (09:00)
--- NOTE | 2020-01-21 09:30 | NUR ---
WOUND CARE NURSE AT BEDSIDE, WOUND CARE COMPLETED, APPLIED MEPILEX, TURNED PATIENT EVERY Q2 HOURS PER PROTOCOL. WOUND CARE NURSE STATED WILL PROVIDE BOOTS FOR BLE.
--- NOTE | 2020-01-21 10:05 | NUR ---
WOUND CARE EVALUATION NOTE: REASON FOR EVALUATION: LOW JONY SCALE AND PRESSURE ULCER WOUNDS SKIN ASSESSMENT DONE WITH THIS 59 Y/O MALE PT ADMITTED FROM SNF TO [facility] WITH INITIAL DX SOB AND AMS. PAST MEDICAL HX INCLUDES HTN, DM, OBESITY,RESPIRATORY, LIVER AND KIDNEY FAILURES. PT ADMITTED WITH PRESSURE ULCER WOUNDS. LEFT HEEL SDTI. ALL ABOVE INFORMATION OBTAINED FROM ADMISSION H&P AND ADMISSION ASSESSMENTS. PT IS REMAINS ON VENT SUPPORT, SEDATED, ON VASOPRESSOR AND WRIST SOFT RESTRAINT TO BILATERAL WRISTS. SKIN IS WARM AND DRY, BLE NO HAIR GROWTH, TRACE EDEMA. DORSAL PEDAL PULSES PRESENT AND DIMINISHED, PT ADMITTED WITH FUNGAL NAILS OBSERVED TO TOES AND FINGERS. INCONTINENT OF BOWEL X1 DURING ASSESSMENT. F/C PATENT WITH SMALL AMOUNT YELLOW COLOR URINE OUT PUT OBSERVED. PLAN OF CARE DISCUSSED WITH PRIMARY RN. VENOUS AND ARTERIA ULTRASOUNDS DONE, POC DISCUSSED TO DANNI ARNOLD PER CATALINA THAT DR. SAUL SEEM PT THIS MORNING AND ORDER URIC ACID LEVEL POSSIBLE GOUT. COMORBIDITIES RELATED TO DELAY WOUND HEALING AND FURTHER SKIN BREAKS: VASOPRESSOR: VASOCONSTRICTION AND ISCHEMIA, RESPIRATORY FAILURE, HYPOXIA, DM, KIDNEY FAILURE , LOW ALBUMIN LEVEL, DECREASE FUNCTIONAL ABILITY AND HOB ELEVATED THE MAJORITY OF TIMES DUE TO MEDICAL REASONS. INTEGUMENTARY: -ORAL MUCOUS MEMBRANES ,LIPS ARE DRY, INTACT -ABDOMEN DISTENDED, SOFT WITH MULTIPLE RED DISCOLORATION/RASHES -RIGHT /LEFT HANDS AND FEET MULTIPLE PETECHIA/PURPURA, RED AND SWELLING, SKIN INTACT, TRACE EDEMA, LEFT 2ND DIGIT TOE 0.3X0.3 CM ISCHEMIA BLACK SPOT -INCONTINENT ASSOCIATE DERMATITIS (IAD) TO: B/L GROINS EXTENDED TO SCROTAL SKIN RED AND INTACT -PRESSURE ULCER INJURY STAGE 3, SACROCOCCYX 2X0.5X0.1CM, WOUND BED IS NKH301% GRANULATING TISSUE, LISE-WOUND SKIN CONTACT DERMATITIS -PRESSURE ULCER INJURY STAGE 3, LEFT BUTTOCK 3X2X0.1CM WOUND BED IS RED 100% GRANULATING TISSUE, MOIST NO ODOR, LISE WOUND SKIN CONTACT DERMATITIS. - PRESSURE ULCER INJURY STAGE 3, RIGHT BUTTOCK 4X3X0.1CM WOUND BED IS RED 100% GRANULATING TISSUE, MOIST NO ODOR, LISE WOUND SKIN CONTACT DERMATITIS. -PRESSURE ULCER INJURY SDTI , LEFT HEEL 1X1CM DARK PURPLE COLOR WITH SKIN INTACT, SURROUNDING SKIN RED, MUSHY 3X3CM, INDICATED FURTHER DAMAGE, LISE WOUND SKIN INTACT. - LEFT ACHILLES AREA MULTIPLE ISCHEMIA BLACK SPOT WITH LARGEST 0.5X0.5CM, SURROUNDING SKIN BLANCHABLE REDNESS RECOMMENDATIONS: -MAY APPLY NITROGLYCERINE CREAMS TO ISCHEMIA BLACK SPOTS BID AND LEAVE IT CAPTURE MANAGER -APPLY FUNGAL CREAMS TO NAILS QD AND LEAVE IT OPEN TO AIR -APPLY Z-GUARD TO R/L GROINS EXTENDED TO SCROTAL BID AND PRN IF SOILING -CLEANSE SACRAL COCCYX, LEFT AND RIGHT BUTTOCKS WITH WOUND CLEANSING SOLUTION AND APPLY Z GUARD COVER WITH COMPOSITE DRESSING QD AND PRN IF SOILING -APPLY FORM DRESSING TO LEFT HEEL, LEFT ACHILLES AND APPLY HEEL RAISER, MONITOR DRESSING Q SHIFT AND CHANGE PRN IF SOILING -APPLY FORM DRESSING TO RIGHT HEEL AND OFFLOADING MONITOR DRESSING Q SHIFT AND CHANGE PRN IF SOILING -OFFLOAD BILATERAL HEELS BY PLACING PILLOWS UNDER CALVES UNLESS OTHERWISE CONTRAINDICATED -PRESSURE REDISTRIBUTION SURFACE THERAPY -TURN AND REPOSITION Q2H, OFFLOAD SACRALCOCCYX AND BUTTOCKS BY TURNING RIGHT AND LEFT -CONTINUE TO FOLLOW RD RECOMMENDATIONS ALL ABOVE RECOMMENDATIONS DISCUSSED WITH PRIMARY RN. PLEASE CONTACT WOUND CARE NURSE FOR ANY QUESTION AND CHANGE OF WOUND CONDITION. Addendum: 01/26/20 at 1147 by Linh Khanna RN (Grace) CLARIFICATION: LEFT 3RD DIGIT TOE BLACK SPOT 0.3X0.3 CM. NOT 2ND DIGIT TOE.
--- NOTE | 2020-01-21 10:30 | NUR ---
SUCTIONED PATIENT VIA IN-LINE SUCTIONING, SMALL AMT OF THICK YELLOW SECRETIONS. TOLERATED WELL. APPLIED BOOT TO RIGHT LOWER EXTREMITY AND WAITING 2ND BOOT, NOTIFIED WOUND CARE NURSE.
--- NOTE | 2020-01-21 10:46 | NUR ---
WOUND CARE NURSE RETURNED CALL AND STATES BOOT ONLY FOR LEFT FOOT AND ELEVATE RIGHT FOOT. CHANGED BOOT TO LEFT FOOT.
[2020-01-21] MEDS: POTASSIUM CHLORIDE 20% 40 MEQ/15 ML UDC GT PRN (11:01)
[2020-01-21] MEDS ORDERED: FOAM DRESSING TP PRN (11:35)
[2020-01-21] MEDS ORDERED: ANTIFUNGAL CLEAR OINTMENT TP ONE (13:00)
[2020-01-21] MEDS: FOAM DRESSING TP SCH (13:36)
--- NOTE | 2020-01-21 15:05 | NUR ---
TALKED TO DR SAUL, MADE HIM AWARE THAT WOUND CARE NURSE RECOMMENDED NITROGLYCERIN CREAM FOR BLACK SPOT ON THE HEELS AND TOES. DR SAUL OK TO ORDER THE NITROGLYCERIN CREAM.
--- NOTE | 2020-01-21 17:05 | NUR ---
PT REMAINS ON DOCUMENTED SETTINGS. ETT IS SECURED AND INTACT. VENT CHECK DONE, SX: THIN YLW TO CLR SECRETIONS, VENT PLUGGED INTO RED OUTLET, ALARMS ON AND FUNCTIONING, AMBU BAG AT BEDSIDE.
[2020-01-21] MEDS: MUPIROCIN CA NASAL 2% 1GM TUBE NS SCH (17:34)
[2020-01-21] MEDS: CHLORHEXADINE GLUC 2% CLOTH TP SCH (17:35)
--- NOTE | 2020-01-21 19:25 | NUR ---
REPORT RECEIVED FROM AM NURSE AT BEDSIDE. PT IN STABLE CONDITION. AAOX0-1. PT IS SEDATED RASS-1. DRY WEIGHT 110KG. FLACC 0. NO SOB ETT TO VENT. VENT SETTINGS AC VC FIO2@25%, VT 500, RR 16, PEEP 5, O2 SATURATION@95%. AFEBRILE@96.2. PT IS BEDREST. PT HAS MOMIN. PT HAS OG TUBE RUNNING NEPRO@35ML/HR WITH 140ML WATER FLUSH Q6H. IV SITE L UA DOUBLE LUMEN PICC RUNNING VERSED@2MG/HR OR 2ML/HR AND FENTANYL@55MCG/HR OR 5.5ML/HR PATENT AND INTACT. OTHER SITE RUNNING NS@75ML/HR WITH IVPB PATENT AND INTACT. PT ALSO HAS R IJ FOR DIALYSIS AND PIGTAIL SL PATENT AND INTACT. SKIN WARM, DRY, AND NOT INTACT DUE TO SACRAL WOUND STAGE 2 AND DTI TO HEEL. BED LOCKED IN LOW POSITION. CALL RED WITHIN REACH. SAFETY PRECAUTION IN PLACE. ALL NEEDS MET AT THIS TIME.
--- NOTE | 2020-01-21 19:40 | NUR ---
RECEIVED REPORT FROM AM SHIFT. PATIENT SEEN AND ASSESSED. PATIENT IS INTUBATED WITH ETT SIZE 7.5 AND SECURED WITH ANCHOR-FAST AT 23cm. AUSCULTATION REVEALS BILATERAL CLEAR BREATH SOUNDS. NOTICED ADEQUATE BILATERAL CHEST RISE AND FALL. PATIENT ON VENT SETTINGS AC/VC 16, 500, +5, 25% WITH SPO2 OF 97%. VENT PLUGGED IN RED OUTLET, HOB > 30 DEGREES, AMBU BAG AT BEDSIDE, AND ALARMS SET AND AUDIBLE. PATIENT IS IN NO RESPIRATORY DISTRESS AT THIS TIME. SUCTION SCANT CLEAR/WHITE THIN SECRETIONS FROM TUBE. AIRWAY IS PATIENT. WILL CONTINUE TO MONITOR PATIENT.
--- NOTE | 2020-01-21 21:12 | NUR ---
SOLUCORTEF GIVEN IVP. NITROBID APPLIED TO THE HEEL AND TOES. PT TOLERATED WELL.
[2020-01-21] MEDS: NITROGLYCERIN 2% 1 GM PKT TP SCH (21:13)
--- NOTE | 2020-01-21 23:19 | NUR ---
BS 362. 10 UNITS OF HUMALOG GIVEN.
[2020-01-22] VITALS (64 sets, daily range): BP systolic 101–143; BP diastolic 60–98
[2020-01-22] MEDS: Z-GUARD PASTE TP SCH ×2 (01:28→13:10)
[2020-01-22] MEDS: MIDAZOLAM MDV 50 MG in NACL 0.9% 40 ML IV PRN ×2 (03:21→22:17)
--- NOTE | 2020-01-22 03:21 | NUR ---
NEW BAG VERSED HUNG FOR CONTINUOUS DRIP.
--- NOTE | 2020-01-22 04:00 | NUR ---
ORAL CARE DONE. MOMIN CARE DONE. LINENS CHANGED. PT HAD BM. FEEDING CHANGED. PT HAD RESIDUAL OF 10ML. SACRAL DRESSING CHANGED.
[2020-01-22] MEDS: fentaNYL 1 MG in NACL 0.9% 80 ML IV PRN ×2 (04:57→22:17)
--- NOTE | 2020-01-22 04:57 | NUR ---
NEW BAG FENTANYL HUNG FOR CONTINUOUS DRIP.
[2020-01-22] MEDS: HYDROCORTISONE NA SUCC 100 MG/2 ML VIAL IV SCH ×3 (05:10→20:18)
[2020-01-22] MEDS: BLOOD GLUCOSE MONITORING 1 DEV DEV FS SCH ×3 (05:10→17:06)
--- NOTE | 2020-01-22 05:10 | NUR ---
BS 333. 8 UNITS OF HUMALOG GIVEN. SOLUCORTEF GIVEN IVP.
[2020-01-22] MEDS: INSULIN LISPRO SLIDING SCALE 100 UNITS/ML VIAL SUBQ PRN ×4 (05:11→17:10)
[2020-01-22] MEDS: NACL 0.9% 1,000 ML IV SCH (05:52)
[2020-01-22 06:06] LABS: BASOPHILS % (AUTO) 0.1 % (0.0-2.0); HEMOGLOBIN 8.6 g/dL (12.0-18.0); LYMPHOCYTES # (AUTO) 0.6 K/uL (2.0-11.5); LYMPHOCYTES % (AUTO) 6.2 % (20.5-51.1); MEAN CORPUSCULAR HEMOGLOBIN 30 pg (27-31); MEAN CORPUSCULAR HGB CONC 33 g/dL (33-37); MEAN CORPUSCULAR VOLUME 90.7 fL (80-94); MONOCYTES # (AUTO) 0.5 K/uL (0.8-1.0); NEUTROPHILS # (AUTO) 8.1 K/uL (1.8-7.7); NEUTROPHILS % (AUTO) 88.7 % (42.2-75.2); PLATELET COUNT (AUTO) 74 K/uL (140-450); RED BLOOD CELL COUNT(AUTO) 2.87 MIL/uL (4.20-6.10); RED CELL DISTRIBUTION WIDTH 15.4 % (11.6-13.7); WHITE BLOOD COUNT (AUTO) 9.1 K/uL (4.8-10.8)
--- NOTE | 2020-01-22 06:29 | NUR ---
PATIENT STILL REMAINS ON VENT SUPPORT. FiO2 25% WITH SPO2 OF 94%. AIRWAY IS PATENT. EQUAL CHEST RISE AND FALL.TUBE IS SECURED AND INTACT. PATIENT IN NO RESPIRATORY DISTRESS AT THIS TIME. WILL CONTINUE TO MONITOR.
[2020-01-22 06:54] LABS: MAGNESIUM 2.2 mg/dL (1.8-2.4); PHOSPHORUS 4.1 mg/dL (2.5-4.9)
[2020-01-22 07:01] LABS: ALBUMIN 2.6 g/dL (3.4-5.0); ANION GAP 14.7 (8-16); CARBON DIOXIDE 23.7 mmol/L (21-32); CREATININE 2.4 mg/dL (0.6-1.3); POTASSIUM 3.4 mmol/L (3.5-5.1); TOTAL BILIRUBIN 0.4 mg/dL (0.0-1.0)
--- NOTE | 2020-01-22 07:05 | NUR ---
CRITICAL LAB VALUE BUN 80. TRENDING DOWN.
--- NOTE | 2020-01-22 07:10 | NUR ---
PT REMAINS ON DOCUMENTED SETTINGS. ETT IS SECURED AT 23@ GUM. SX: SMALL CLR SECRETIONS. NO DISTRESS NOTED AT THIS TIME. VENT PLUGGED INTO RED OUTLET, ALARMS ON AND FUNCTIONING, AMBU BAG AT BEDSIDE. WILL CONTINUE TO MONITOR.
--- NOTE | 2020-01-22 07:20 | NUR ---
REPORT GIVEN TO AM NURSE AT BEDSIDE. PT IN STABLE CONDITION.
--- NOTE | 2020-01-22 09:04 | NUR ---
MD AT BEDSIDE EVALUATING PATIENT, STARTED SEDATION VACATION PER MD. TURN OFF FENTANYL AND VERSED PER PROTOCOL
--- NOTE | 2020-01-22 09:18 | NUR ---
DR SAUL AT BEDSIDE EVALUATING PATIENT DURING SEDATION VACATION, STATES MAY CONTINUE SEDATION AT HALF THE PRIOR DOSE FOR WEANING OF SEDATION.
[2020-01-22] MEDS: PANTOPRAZOLE 40 MG INJ VIAL IVP SCH (09:45)
[2020-01-22] MEDS: NITROGLYCERIN 2% 1 GM PKT TP SCH (09:46)
[2020-01-22] MEDS: POTASSIUM CHLORIDE 20% 40 MEQ/15 ML UDC GT PRN (11:20)
[2020-01-22] MEDS: FOAM DRESSING TP SCH (13:10)
--- NOTE | 2020-01-22 16:16 | NUR ---
01/22/20 RD FOLLOW UP COMPLETED PLEASE REFER TO NUTRITION ASSESSMENT UNDER CARE ACTIVITY FOR ESTIMATED NUTRITIONAL NEEDS. 1. CONTINUE NEPRO 1.8 @ 35 ML/HR WITH PROSOURCE BID -THIS WILL PROVIDE 1632 CALORIES AND 98 GM OF PROTEIN WHICH MEETS 100% OF NUTRIENT NEEDS 2.IF PATIENT IS EXTUBATED RECOMMEND SWALLOW EVALUATION 3. RD TO FOLLOW-UP 2-3 DAYS, HIGH RISK CALVIN JOHNSON RD
[2020-01-22] MEDS: MUPIROCIN CA NASAL 2% 1GM TUBE NS SCH (17:07)
[2020-01-22] MEDS: CHLORHEXADINE GLUC 2% CLOTH TP SCH (17:07)
--- NOTE | 2020-01-22 17:10 | NUR ---
PT REMAINS ON DOCUMENTED SETTINGS. ETT IS SECURED AND INTACT @23 AT [facility]. VENT CHECK DONE, NO DISTRESS NOTED AT THIS TIME. SX: THIN YLW SECRETIONS. VENT PLUGGED INTO RED OUTLET, ALARMS ON AND FUNCTIONING, AMBU BAG AT BEDSIDE.
--- NOTE | 2020-01-22 19:15 | NUR ---
RECEIVED REPORT FROM DAY NURSE NO ACUTE DISTRESS NOTED.
--- NOTE | 2020-01-22 19:30 | NUR ---
PT HAS EYES CLOSED; AROUSABLE TO NAME, RASS -1, SEDATED ON VERSED @ 2MG/HR AND FENTANYL DRIP @ 0.5 MCG/KG/HR. PT ABLE TO MOVE BILATERAL UPPER AND LOWER EXTREMITIES; BILAT SOFT WRIST RESTRAINTS IN PLACE. ETT TO VENT @ 25 % FIO2, THIN WHITE SECRETIONS NOTED. DIMINISHED BREATH SOUNDS. NSR 80-90S, GENERALIZED EDEMA +2 PITTING, +1 PULSES TO BILATERAL UPPER AND LOWER EXTREMITIES. ABD SOFT NON DISTENDED. OGT IN PLACE; + PLACEMENT. NEPRO RUNNING @ 35 ML/HR 35 ML RESIDUALS NOTED. MOMIN CATH IN PLACE; YELLOW URINE NOTED. SKIN NON INTACT, SEE WOUND CARE ASSESSMENT. L UPPER ARM PICC LINE NOTED WITH X3 LUMEN. HD CATH WITH PIGTAIL TO R UPPER NECK. BED LOCKED IN LOWEST POSITION. SAFETY PRECAUTIONS IN PLACE. DRY WEIGHT 110 KG
--- NOTE | 2020-01-22 19:40 | NUR ---
RECEIVED PT FROM DAY SHIFT ON DOCUMENTED SETTINGS. VENT PLUGGED INTO RED OUTLET. BMV AT BEDSIDE. ETT SECURED AND INTACT. ALARMS SETS. PT IS SEMI SALAZAR. NO DISTRESS NOTED. WILL CONTINUE TO MONITOR
--- NOTE | 2020-01-22 20:20 | NUR ---
VAP ORAL CARE DONE, PT REPOSITIONED, FLACC O RASS-1.
--- NOTE | 2020-01-22 23:00 | NUR ---
CHG BATH GIVEN; X1 MODERATE SOFT BM NOTED. PT REPOSITIONED. WILL CONTINUE TO OBSERVE.
[2020-01-23] VITALS (98 sets, daily range): BP systolic 94–150; BP diastolic 57–116
[2020-01-23] MEDS: INSULIN LISPRO SLIDING SCALE 100 UNITS/ML VIAL SUBQ PRN ×4 (00:15→18:55)
[2020-01-23] MEDS: Z-GUARD PASTE TP SCH ×2 (01:46→13:16)
--- NOTE | 2020-01-23 05:07 | NUR ---
PT REMAINS ON DOCUMENTED SETTINGS. NO CHANGES MADE.ETT SECURED AND INTACT. ALARMS SET. AIRWAY PATENT. MINIMAL SECRETIONS. PT IN NO DISTRESS. WILL CONT TO MONITOR
[2020-01-23] MEDS: BLOOD GLUCOSE MONITORING 1 DEV DEV FS SCH ×4 (06:18→18:54)
[2020-01-23] MEDS: NACL 0.9% 1,000 ML IV SCH (06:19)
[2020-01-23 06:51] LABS: BASOPHILS # (AUTO) 0.1 K/uL (0.00-0.22); HEMATOCRIT 30.9 % (36-52); HEMOGLOBIN 10.1 g/dL (12.0-18.0); LYMPHOCYTES # (AUTO) 0.5 K/uL (2.0-11.5); LYMPHOCYTES % (AUTO) 6.1 % (20.5-51.1); MEAN CORPUSCULAR HEMOGLOBIN 30 pg (27-31); MEAN CORPUSCULAR HGB CONC 33 g/dL (33-37); MONOCYTES # (AUTO) 0.4 K/uL (0.8-1.0); MONOCYTES % (AUTO) 4.7 % (1.7-9.3); NEUTROPHILS # (AUTO) 7.8 K/uL (1.8-7.7); NEUTROPHILS % (AUTO) 88.2 % (42.2-75.2); PLATELET COUNT (AUTO) 63 K/uL (140-450); RED BLOOD CELL COUNT(AUTO) 3.39 MIL/uL (4.20-6.10); RED CELL DISTRIBUTION WIDTH 15.6 % (11.6-13.7); WHITE BLOOD COUNT (AUTO) 8.8 K/uL (4.8-10.8)
[2020-01-23 06:56] LABS: MAGNESIUM 2.1 mg/dL (1.8-2.4); PHOSPHORUS 2.9 mg/dL (2.5-4.9)
[2020-01-23 06:57] LABS: ANION GAP 14.9 (8-16); CARBON DIOXIDE 23.3 mmol/L (21-32); POTASSIUM 3.2 mmol/L (3.5-5.1)
--- NOTE | 2020-01-23 07:30 | NUR ---
RECEIVED REPORT FROM NIGHT NURSE. PT IN BED, SEDATED AT RASS -1 WITH FENTANYL AT 5.5ML/H AND VERSED AT 2ML/H. RESPIRATIONS EVEN AND UNLABORED ON ETT TO VENT IN ACVC MODE AT 25% FIO2, TV 500, RR 16, PEEP 5, NO RESPIRATORY DISTRESS NOTED. BP 110/79, P87, RR 15, O2 SAT 100%, NIGHT NURSE REPORTS NO FEVER DURING RESIN MIXER. L UA PICC IN PLACE PATENT AND ASYMPTOMATIC INFUSING PER ORDER. R IJ HD ACCESS WITH PIGTAIL INFUSING PER ORDER. MOMIN IN PLACE. OGT IN PLACE TUBE FEEDING NEPRO AT 35ML/H WATER FLUSH 140ML Q6H. BILATERAL SOFT WRIST RESTRAINTS IN PLACE. SKIN NON INTACT, BILATERAL COCCYX AND BUTTOCKS STAGE 2 ULCER PRESENT, PERINEAL REDNESS AND BILATERAL LOWER EXTREMITY PETECHIAE. CONTACT PRECAUTIONS IN PLACE FOR MRSA NARES AND BLOOD. SAFETY MEASURES IN PLACE, CALL LIGHT WITHIN REACH, BED IN LOW POSITION. WILL CONTINUE TO MONITOR.
--- NOTE | 2020-01-23 07:57 | NUR ---
RECEIVED CALL FROM PTS DAUGHTER JUANITA AND UPDATED HER ON PTS CONDITION, KIDNEY FUNCTION, VENTILATOR WEANING AND WOUNDCARE
--- NOTE | 2020-01-23 08:45 | NUR ---
RESTRAINTS ORDER RENEWED PER DR SAUL
--- NOTE | 2020-01-23 09:02 | NUR ---
RECEIVED CALL FROM PTS SIGNIFICANT OTHER LUKAS AND UPDATED HER ON PTS CONDITION.
[2020-01-23 09:14] LABS: HEMATOCRIT 30.7 % (36-52); MEAN CORPUSCULAR HEMOGLOBIN 30 pg (27-31); MEAN CORPUSCULAR HGB CONC 33 g/dL (33-37); MEAN CORPUSCULAR VOLUME 90.9 fL (80-94); PLATELET COUNT (AUTO) 78 K/uL (140-450); RED BLOOD CELL COUNT(AUTO) 3.38 MIL/uL (4.20-6.10); RED CELL DISTRIBUTION WIDTH 15.7 % (11.6-13.7); WHITE BLOOD COUNT (AUTO) 13.8 K/uL (4.8-10.8)
[2020-01-23] MEDS: HYDROCORTISONE NA SUCC 100 MG/2 ML VIAL IV SCH ×2 (09:20→20:37)
[2020-01-23] MEDS: PANTOPRAZOLE 40 MG INJ VIAL IVP SCH (09:20)
[2020-01-23] MEDS: NITROGLYCERIN 2% 1 GM PKT TP SCH (09:20)
[2020-01-23] MEDS: POTASSIUM CHLORIDE 20% 40 MEQ/15 ML UDC GT PRN (09:21)
--- NOTE | 2020-01-23 09:21 | NUR ---
MEDICATIONS ADMINISTERED PER ORDER. PT TOLERATED WELL. RESIDUAL CHECK DONE 260ML, WILL HOLD FEEDING PER PARAMETER. K+ 3.2 40MEQ GIVEN, VAP ORAL CARE GIVEN. PT REPOSITIONED. SAFETY MEASURES IN PLACE. WILL CONTINUE TO MONITOR.
[2020-01-23 09:33] LABS: LYMPHOCYTES % (MANUAL) 4 % (20-46); MONOCYTES % (MANUAL) 4 % (5-12)
[2020-01-23 10:00] LABS: PROTHROMBIN TIME 11.9 secs (10.8-13.4)
--- NOTE | 2020-01-23 10:48 | NUR ---
PER DR ARAUJO FREE WATER FLUSH FOR TUBE FEEDING CHANGED TO 200ML Q4H
[2020-01-23] MEDS: NACL 0.45% 1,000 ML IV SCH (10:57)
[2020-01-23] MEDS ORDERED: VANCOMYCIN 750 MG in DEXTROSE 5% 250 ML IV SCH (11:00)
--- NOTE | 2020-01-23 13:13 | NUR ---
INFORMED DR BAL OF BLOOD CULTURE GRAM (+) COCCI. INSTRUCTED TO CONTINUE VANCO AND REMOVE BOTH R IJ AND L UA PICC AT SAME TIME, NOT ON DIFFERENT DAYS.
[2020-01-23] MEDS: FOAM DRESSING TP SCH (13:15)
[2020-01-23] MEDS: MIDAZOLAM MDV 50 MG in NACL 0.9% 40 ML IV PRN (15:06)
[2020-01-23] MEDS: fentaNYL 1 MG in NACL 0.9% 80 ML IV PRN (15:11)
[2020-01-23] MEDS: CHLORHEXADINE GLUC 2% CLOTH TP SCH (18:54)
[2020-01-23] MEDS: MUPIROCIN CA NASAL 2% 1GM TUBE NS SCH (18:54)
--- NOTE | 2020-01-23 19:15 | NUR ---
RECEIVED REPORT FROM AUGIE RN, PT ETT TO VENT, AC/VC FIO2 24% VT 500 RR 16 PEEP 5 RASS -1 PT HAS PICC UPPER LEFT ARM AND RIJ HD CATH, PT RECEIVING 55 MCG/H FENTANYL, AND 2ML/HR VERSED, LUNG SOUNDS COARSE, S1 AND S2 HEART SOUNDS HEARD, PULSES PALPABLE UPPER AND LOWER EXTREMITIES, PT ECCHYMOSIS TO FEET AND SACRAL AREA, WITH A SACRAL WOUND, PT HAS MOMIN CATH DRAINING CLEAR YELLOW URINE WITH SOME SEDIMENTATION PRESENT, BOWEL SOUNDS PRESENT, SAFETY PROTOCOLS IN PLACE WILL CONTINUE TO MONITOR PT
--- NOTE | 2020-01-23 20:02 | NUR ---
RECEIVED PT FROM DAY SHIFT ON DOCUM,ENTED SETTINGS. VENT PLUGGED INTO RED OUTLET BMV AT BEDSIDE. ETT SECURED AND INTACT. ALARMS SET. PT IN NO DISTRESS. WILL CONT TO MONITOR
[2020-01-24] VITALS (96 sets, daily range): BP systolic 93–141; BP diastolic 55–96
--- NOTE | 2020-01-24 | NUR ---
PT IN BED VITALS STABLE BS CHECKED AND INSULIN ADMINISTERED PER PROTOCOL, WILL CONTINUE TO MONITOR PT
[2020-01-24] MEDS: BLOOD GLUCOSE MONITORING 1 DEV DEV FS SCH ×4 (00:55→18:30)
[2020-01-24] MEDS: INSULIN LISPRO SLIDING SCALE 100 UNITS/ML VIAL SUBQ PRN ×4 (01:07→18:32)
[2020-01-24] MEDS: Z-GUARD PASTE TP SCH ×2 (01:11→12:06)
--- NOTE | 2020-01-24 05:00 | NUR ---
PT BED BATH GIVEN PT REPOSITIONED IN BED, MOMIN CARE, AND ORAL CARE PROVIDED PT DISPLAYS NO SIGNS OF DISTRESS WILL CONTINUE TO MONITOR PT
--- NOTE | 2020-01-24 05:35 | NUR ---
PT REMAINS ON DOCUMENTED SETTINGS. ETT SECURED AND INTACT. PATENT AIRWAY. ALARMS SET. PT IS IN NO DISTRESS. WILL CONT TO MONITOR
[2020-01-24 06:36] LABS: HEMATOCRIT 36.3 % (36-52); HEMOGLOBIN 11.6 g/dL (12.0-18.0); MEAN CORPUSCULAR HEMOGLOBIN 29 pg (27-31); MEAN CORPUSCULAR HGB CONC 32 g/dL (33-37); MEAN CORPUSCULAR VOLUME 91.7 fL (80-94); PLATELET COUNT (AUTO) 81 K/uL (140-450); RED BLOOD CELL COUNT(AUTO) 3.96 MIL/uL (4.20-6.10); RED CELL DISTRIBUTION WIDTH 16.2 % (11.6-13.7); WHITE BLOOD COUNT (AUTO) 20.6 K/uL (4.8-10.8)
[2020-01-24] MEDS: NACL 0.45% 1,000 ML IV SCH (06:45)
[2020-01-24 06:57] LABS: LYMPHOCYTES % (MANUAL) 4 % (20-46); MONOCYTES % (MANUAL) 5 % (5-12)
[2020-01-24 06:59] LABS: ANION GAP 12.3 (8-16); CARBON DIOXIDE 24.7 mmol/L (21-32); CREATININE 1.8 mg/dL (0.6-1.3)
--- NOTE | 2020-01-24 07:30 | NUR ---
RECEIVED BEDSIDE REPORT FROM CHEMISTRY LECTURER RN. PT IS SEDATED, RASS -1. AFEBRILE. FLACC 0. SINUS TACHY ON MONITOR. ETT TO VENT: A/C VC FIO2 24%. VT 500, RR 16, PEEP 5. BREATHING EVEN AND UNLABORED. NO SIGNS OF RESP DISTRESS. OGT IN PLACE RECEIVING TF NEPRO AT 35 ML/HR FWF 200 ML Q4H. NO RESIDUALS. OGT PLACEMENT CONFIRMED. ABDOMEN SOFT, ROUND, NONTENDER WITH ACTIVE BOWEL SOUNDS. PICC LINE TO LEFT UPPER ARM INTACT AND PATENT. PT IS ON FENTANYL DRIP AT 55 MCG/HR (DRY WEIGHT 110 KG), VERSED DRIP AT 2 MG/HR, IVF 1/2NS AT 40 ML/HR. RIJ HD VENU CATH WITH PIGTAIL INTACT AND ASYMPTOMATIC. SKIN IS DRY AND WARM TO TOUCH. FOAM DRESSINGS TO SACRAL AND HEELS IN PLACE. MOMIN CATH IN PLACE DRAINING YELLOW URINE TO GRAVITY. HOB AT 30 DEGREES, BED IN LOWEST POSITION LOCKED. CALL LIGHT WITHIN REACH. NO SIGNS OF DISTRESS AT THIS TIME. WILL CONTINUE TO MONITOR.
[2020-01-24 08:03] LABS: MAGNESIUM 2.1 mg/dL (1.8-2.4); PHOSPHORUS 2.6 mg/dL (2.5-4.9)
[2020-01-24] MEDS: HYDROCORTISONE NA SUCC 100 MG/2 ML VIAL IV SCH ×2 (08:21→21:00)
[2020-01-24] MEDS: PANTOPRAZOLE 40 MG INJ VIAL IVP SCH (08:21)
[2020-01-24] MEDS: NITROGLYCERIN 2% 1 GM PKT TP SCH (08:22)
--- NOTE | 2020-01-24 08:45 | NUR ---
MEDICATIONS ADMINISTERED ORDERED. PT TOLERATED WELL.
--- NOTE | 2020-01-24 10:02 | NUR ---
TURNED AND REPOSITIONED. PRESSURE AREAS OFF LOADED.
[2020-01-24] MEDS: fentaNYL 1 MG in NACL 0.9% 80 ML IV PRN (10:54)
[2020-01-24] MEDS: FOAM DRESSING TP SCH (12:06)
--- NOTE | 2020-01-24 12:53 | NUR ---
DR. LE IN TO SEE PT. WILL FOLLOW UP ON ORDERS.
--- NOTE | 2020-01-24 12:55 | NUR ---
SEDATIONS OFF FOR SBT PER DR. LE.
--- NOTE | 2020-01-24 12:57 | NUR ---
PER REQUEST OF PT PLACED ON CPAP 5 PS 10 AND FIO2 24%. WILL CONTINUE TO MONITOR. NURSE AWARE.
--- NOTE | 2020-01-24 13:24 | NUR ---
PT SEEN BY DR. MCGARRY. ORDER RECEIVED TO DISCONTINUE VENU CATH AFTER MIDLINE INSERTION.
--- NOTE | 2020-01-24 13:56 | NUR ---
01/24/20 RD FOLLOW UP COMPLETED PLEASE REFER TO NUTRITION PROGRESS NOTE UNDER CARE ACTIVITY FOR ESTIMATED NUTRITION NEEDS. RD RECOMMENDATIONS: 1. CONTINUE NEPRO 1.8 @ 35 ML/HR WITH PROSOURCE BID. -THIS WILL PROVIDE 1632 CALORIES AND 98 GM OF PROTEIN WHICH MEETS 100% OF ESTIMATED ENERGY NUTRIENT NEEDS AND 95% OF ESTIMATED PROTEIN NEEDS. 2. CONSIDER NEPHROVITE AND ZINC SULFATE FOR WOUND HEALING. 3. IF PATIENT IS EXTUBATED, RECOMMEND SWALLOW EVALUATION. 4. RD TO FOLLOW-UP 2-3 DAYS, HIGH RISK ROD RUTLEDGE, RD
--- NOTE | 2020-01-24 15:30 | NUR ---
LIJ VENU CATH DISCONTINUED ORDERED. PT TOLERATED WELL. NO BLEEDING NOTED. TIP INTACT.
--- NOTE | 2020-01-24 16:50 | NUR ---
NEW MIDLINE INSERTED TO STEFFANY BY PICC LINE NURSE TUTU. PT TOLERATED WELL. JACK PICC DISCONTINUED PER ORDER. NO BLEEDING NOTED, TIP INTACT.
--- NOTE | 2020-01-24 17:50 | NUR ---
PT SEEN BY DR. JOANNE Dixon. NO NEW ORDER RECEIVED.
[2020-01-24] MEDS: MUPIROCIN CA NASAL 2% 1GM TUBE NS SCH (17:56)
[2020-01-24] MEDS: CHLORHEXADINE GLUC 2% CLOTH TP SCH (17:56)
--- NOTE | 2020-01-24 18:55 | NUR ---
RECEIVED CALL FROM HILARIA WIGGINS. UPDATES GIVEN ON PT'S CONDITION.
--- NOTE | 2020-01-24 19:25 | NUR ---
REPORT GIVEN TO J2EE SOFTWARE ENGINEER RN FOR CONTINUITY OF CARE. PT IS IN STABLE CONDITION.
--- NOTE | 2020-01-24 19:45 | NUR ---
PT HAS EYES CLOSED; AROUSABLE TO NAME, RASS -1, SEDATED ON VERSED @ 2MG/HR AND FENTANYL DRIP @ 0.5 MCG/KG/HR. PT ABLE TO MOVE BILATERAL UPPER AND LOWER EXTREMITIES; BILAT SOFT WRIST RESTRAINTS IN PLACE. ETT TO VENT @ 25 % FIO2, THIN WHITE SECRETIONS NOTED. DIMINISHED BREATH SOUNDS. NSR 80-90S, GENERALIZED EDEMA +3 PITTING, +1 PULSES TO BILATERAL UPPER AND LOWER EXTREMITIES. ABD SOFT NON DISTENDED. OGT IN PLACE; + PLACEMENT. NEPRO RUNNING @ 35 ML/HR 35 ML RESIDUALS NOTED. MOMIN CATH IN PLACE; YELLOW URINE NOTED. SKIN NON INTACT, SEE WOUND CARE ASSESSMENT. R UPPER ARM MIDLINE IN PLACE. BED LOCKED IN LOWEST POSITION.
[2020-01-24] MEDS ORDERED: VANCOMYCIN HCL 750 MG in DEXTROSE 5% 250 ML IV SCH (21:00)
[2020-01-25] VITALS (103 sets, daily range): BP systolic 86–148; BP diastolic 51–98
[2020-01-25] MEDS: INSULIN LISPRO SLIDING SCALE 100 UNITS/ML VIAL SUBQ PRN ×5 (00:30→23:18)
--- NOTE | 2020-01-25 01:00 | NUR ---
PT TURNED AND REPOSITIONED. VAP ORAL CARE DONE. FLACC 0
[2020-01-25] MEDS: Z-GUARD PASTE TP SCH ×2 (01:24→13:15)
[2020-01-25] MEDS: NACL 0.45% 1,000 ML IV SCH (03:28)
--- NOTE | 2020-01-25 04:00 | NUR ---
AM CARE DONE. LINEN CHANGED. PT TURNED AND REPOSITIONED. NO ACUTE DISTRESS NOTED.
[2020-01-25] MEDS: BLOOD GLUCOSE MONITORING 1 DEV DEV FS SCH ×5 (05:35→23:17)
[2020-01-25] MEDS: fentaNYL 1 MG in NACL 0.9% 80 ML IV PRN ×2 (05:38→23:50)
[2020-01-25] MEDS: MIDAZOLAM MDV 50 MG in NACL 0.9% 40 ML IV PRN (05:41)
--- NOTE | 2020-01-25 07:30 | NUR ---
REPORT GIVEN TO DAY SHIFT FOR CONTINUITY OF CARE.VERSED AND FENTANYL DRIPS RASS-1
--- NOTE | 2020-01-25 07:30 | NUR ---
RECEIVED REPORT FROM UROLOGIC NURSE NURSE GIDEON FOR CONTINUITY OF CARE. PT IS RESTING ON BED COMFORTABLY, FLACC 0, PT IS RASS -1, EYES OPENING FOR AWHILE AND GOES BACK TO SLEEP. RESPIRATION EVEN AND UNLABORED ON ETT TO TRACH, SPO2 AT 97%. NO SIGNS OF DISTRESS NOTED. IV ON RIGHT UPPER ARM MIDLINE, CLEAN AND INTACT, INFUSING FENTAYL 5.5 ML/HR (55MCG/HR), VERSED 2 ML/HR ( 2MG/HR) AND NS AT 40ML/HR. SKIN CLEAN AND DRY, WARM TO TOUCH, SACRAL PRESSURE WOUND, LEFT AND RIGHT BUTTOCK WOUND NOTED, COVERED WITH DRESSING CLEAN AND DRY, FOAM DRESSING ON L HEEL NOTED AND BOOT PROTECTOR ON R HEEL. PT IS INCONTINENT AND MOMIN IN PLACE, DRAINING YELLOW URINE WITH GRAVITY. ABDOMEN SOFT AND ROUND. BILATRAL SOFT WRIST RESTRAINTS IN PLACE, NO SIGNS OF INJURY AND CAPILLARY REFILL < [address] SEC[address]AFETY MEASURES IN PLACE. CONSULTANT ELECTRONICS ATTACHED. BED IN LOW POSITION, HOB ELEVATED TO 30 DEGREE, AND BED LOCKED.
[2020-01-25 08:05] LABS: BASOPHILS # (AUTO) 0.1 K/uL (0.00-0.22); BASOPHILS % (AUTO) 0.4 % (0.0-2.0); EOSINOPHILS # (AUTO) 0.1 K/uL (0-0.4); EOSINOPHILS % (AUTO) 0.4 % (0.0-4.0); HEMATOCRIT 33.5 % (36-52); HEMOGLOBIN 10.6 g/dL (12.0-18.0); LYMPHOCYTES # (AUTO) 1.5 K/uL (2.0-11.5); LYMPHOCYTES % (AUTO) 8.3 % (20.5-51.1); MEAN CORPUSCULAR HEMOGLOBIN 29 pg (27-31); MEAN CORPUSCULAR HGB CONC 32 g/dL (33-37); MEAN CORPUSCULAR VOLUME 92.4 fL (80-94); MONOCYTES # (AUTO) 0.7 K/uL (0.8-1.0); MONOCYTES % (AUTO) 3.7 % (1.7-9.3); NEUTROPHILS # (AUTO) 15.6 K/uL (1.8-7.7); NEUTROPHILS % (AUTO) 87.2 % (42.2-75.2); PLATELET COUNT (AUTO) 76 K/uL (140-450); RED BLOOD CELL COUNT(AUTO) 3.62 MIL/uL (4.20-6.10); RED CELL DISTRIBUTION WIDTH 16.5 % (11.6-13.7); WHITE BLOOD COUNT (AUTO) 17.9 K/uL (4.8-10.8)
--- NOTE | 2020-01-25 08:21 | NUR ---
RECEIVED A CALL FROM PT'S OLDER DAUGHTER YESSI, UPDATED YESSI WITH PT'S CURRENT CONDITION AND ANSWERED ALL NONMIE'S QUESTIONS. YESSI VERBALIZED UNDERSTANDING AND AWARE. PER YESSI, SHE WILL CALL BACK ZHANNA TO FOLLOW UP ON PT'S CONDITION.
[2020-01-25 08:29] LABS: ALBUMIN 1.7 g/dL (3.4-5.0); ANION GAP 12.4 (8-16); CARBON DIOXIDE 22.5 mmol/L (21-32); CREATININE 1.7 mg/dL (0.6-1.3); POTASSIUM 3.9 mmol/L (3.5-5.1); TOTAL BILIRUBIN 0.4 mg/dL (0.0-1.0)
--- NOTE | 2020-01-25 08:29 | NUR ---
RECEIVED A CALL FROM LUKAS, EXPLAINED THAT HER NAME IS LISTED FOR ABLE TO OBTAIN INFORMATION ABOUT PATIENT ON THE CHART. UPDATED LUKAS WITH PT'S CURRENT CONDITION, AND LUKAS WAS AWARE.
[2020-01-25] MEDS: PANTOPRAZOLE 40 MG INJ VIAL IVP SCH (09:17)
[2020-01-25] MEDS: HYDROCORTISONE NA SUCC 100 MG/2 ML VIAL IV SCH ×2 (09:17→20:39)
[2020-01-25] MEDS: NITROGLYCERIN 2% 1 GM PKT TP SCH (09:18)
[2020-01-25] MEDS: ZINC SULF 220 MG CAP GT SCH (09:18)
[2020-01-25] MEDS: VIT-B COMP/VIT-C/FOLIC ACID 1 TAB GT SCH (09:18)
[2020-01-25] MEDS ORDERED: CRUSHER, PILL MC ONE (09:30)
--- NOTE | 2020-01-25 09:51 | NUR ---
CHECKED G-TUBE RESIDUAL AND RECEIVED < 10 ML, ADMINISTERED SCHEDULED MEDS PER MD ORDER, FLUSH BEFORE AND AFTER MEDS ADMINISTER. PROVIDED ORAL CARE, HYGIENE CARE AND MOMIN CARE, PT TOLERATED WELL. FLACC 0. NO SIGNS OF ACUTE DISTRESS NOTED. OFFLOADED PRESSURE WITH PILLOWS. WOUND BED ACTIVATED. SAFETY MEASURES IN PLACE. BED IN LOW POSITION, HOB ELEVATED 30 DEGREE AND BED LOCKED.
--- NOTE | 2020-01-25 11:07 | NUR ---
DR JOANNE Menendez IS ASSESSING PATIENT AT BEDSIDE.
--- NOTE | 2020-01-25 11:55 | NUR ---
CHECKED BLOOD GLUCOSE AND RECEIVED 382, ADMINISTERED 10 UNITS OF HUMALOG SUBQ. REPOSITIONED PT AND UPLOADED PRESSURE WITH PILLOWS, PT TOLERATED WELL. NO SIGNS OF DISTRESS NOTED. AGRICULTURAL LENDER ATTACHED.
--- NOTE | 2020-01-25 12:49 | NUR ---
US TECH IS AT BEDSIDE.
[2020-01-25] MEDS: FOAM DRESSING TP SCH (13:14)
--- NOTE | 2020-01-25 13:20 | NUR ---
WITH ASIST FROM ANOTHER RN, PROVIDED WOUND CARE, CHANGED DRESSING ON SACRAL, APPLIED Z-GUARD. CHANGED DRRESSING ON HEEL BILATERALLY. APPLIED FUNGAL CREAM ON NAILS. APPLIED Z-GUARD ON PERINEAL AREA. USED PILLOWS OFFLOADED PRESSURE FROM BACK, LEGS AND ARMS, PT TOLERATED WELL. FLACC 0. NO SIGNS OF ACUTE DISTRESS NOTED. SCD ON BILATERALLY. HEEL BOOT ON R HEEL. WOOD PROCESSING WORKER ATTACHED. SAFETY MEASURES IN PLACE.
--- NOTE | 2020-01-25 13:22 | NUR ---
DR LE IS BY BEDSIDE.
--- NOTE | 2020-01-25 13:31 | NUR ---
RECEIVED A CRITICAL LAB FOR BLOOD CULTURE MRSA POSITIVE, DR LE MADE AWARE AT NURSING STATION. NO ORDER RECEIVED AT THIS TIME.
--- NOTE | 2020-01-25 13:50 | NUR ---
DR MCGARRY IS ASSESSING PT AT BEDSIDE.
[2020-01-25] MEDS ORDERED: DEXTROSE 5% 1,000 ML IV SCH (13:55)
[2020-01-25] MEDS: INSULIN LANTUS 100 UNITS/ML 10 ML VIAL SUBQ SCH (14:48)
--- NOTE | 2020-01-25 14:50 | NUR ---
CHECKED BLOOD GLUCOSE AND RECEIVED 362, ADMINISTERED 15 UNITS OF LANTUS PER MD ORDER. CHANGED IVF TO D5 AND INFUSING AT 50 ML/HR PER MD ORDER. PT IS SEDATED RASS -1, FLACC 0. NO SIGNS OF DISTRESS NOTED. UPPERS EDGE BURNISHER ATTACHED.
--- NOTE | 2020-01-25 15:43 | NUR ---
PT HAS A MODERATE BROWN SOFT BM, WITH ASSIST FROM ANOTHER RN, PROVIDED HYGIENE CARE AND REPOSITIONED PATIENT. WITH PILLOWS OFFLOADED PRESSURE FROM BACK, LEGS AND ARMS, PT TOLERATED WELL. FLACC 0. NO SIGNS OF ACUTE DISTRESS NOTED. SCD ON BILATERALLY. STITCHING DEPARTMENT SUPERVISOR ATTACHED. SAFETY MEASURES IN PLACE.
--- NOTE | 2020-01-25 16:44 | NUR ---
DR BAL IS ROUNDING ON PATIENT.
--- NOTE | 2020-01-25 17:40 | NUR ---
RECEIVED A CALL FROM LUKAS, UPDATED LUKAS WITH PT'S CURRENT CONDITION, AND LUKAS WAS AWARE.
--- NOTE | 2020-01-25 17:43 | NUR ---
PT REMAINS ON DOCUMENTED VENT SETTINGS. ETT IS SECURE WITH A PATENT AIRWAY. PT IS SEDATED AND NOT IN ANY DISTRESS AT THIS TIME. VENT ALARMS REMAIN ON AND FUNCTIONING.
--- NOTE | 2020-01-25 18:05 | NUR ---
CHECKED BLOOD GLUCOSE AND RECEIVED 370, ADMINISTERED 10 UNITS OF HUMALOG SUBQ. R
--- NOTE | 2020-01-25 19:27 | NUR ---
ENDORSED PT TO TRIMMER BUFFING WHEEL NURSE RON FOR CONTINUITY OF CARE. RT IS BY BEDSIDE. PT IS IN STABLE CONDITION.
--- NOTE | 2020-01-25 19:28 | NUR ---
REPORT RECEIVED FROM AM NURSE AT BEDSIDE. PT IN STABLE CONDITION. AAOX0-1. PT IS SEDATED RASS-1. DRY WEIGHT 110KG. FLACC 0. NO SOB ON ETT TO VENT. VENT SETTINGS AC V/C FIO2@28%, VT 500, RR 16, PEEP 5, O2 SATURATION OF 99%. AFEBRILE@96.8. PT IS ON BEDREST. PT HAS MOMIN DRAINING DARK YELLOW URINE WITH SEDIMENT. PT HAS OGTUBE RUNNING TUBE FEEDING GLUCERNA 1.2@35ML/HR WITH 300ML FLUSH Q4H. 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 IV SITE R UA MIDLINE Y-SITE RUNNING VERSED@2MG/HR OR 2ML/HR AND FENTANYL@55UNITS/HR OR 5.5ML/HR. SECOND PORT RUNNING D5@50ML/HR PATENT AND INTACT. SKIN WARM, DRY, AND NOT INTACT DUE TO MULTIPLE WOUNDS. SEE WOUND NOTES. BED LOCKED IN LOW POSITION. CALL RED WITHIN REACH. SAFETY PRECAUTION IN PLACE. ALL NEEDS MET AT THIS TIME.
--- NOTE | 2020-01-25 20:00 | NUR ---
ORAL CARE DONE.
[2020-01-25] MEDS: COLCHICINE 0.6 MG TAB PO SCH (20:39)
--- NOTE | 2020-01-25 20:39 | NUR ---
SOLUCORTEF GIVEN IVP. COLCHICINE GIVEN THROUGH GTUBE. RESIDUAL OF 60ML.
--- NOTE | 2020-01-25 22:27 | NUR ---
PULSE OX RE-ADJUSTED IT WAS GIVING FALSE READINGS
--- NOTE | 2020-01-25 23:17 | NUR ---
BS 375. 10 UNITS OF HUMALOG GIVEN.
--- NOTE | 2020-01-25 23:50 | NUR ---
FENTANYL NEW BAG HUNG FOR CONTINUOUS DRIP.
[2020-01-26] VITALS (86 sets, daily range): BP systolic 81–154; BP diastolic 51–119
[2020-01-26] MEDS: Z-GUARD PASTE TP SCH ×2 (00:20→13:00)
--- NOTE | 2020-01-26 00:20 | NUR ---
WOUND PICTURES TAKEN. Addendum: 01/26/20 at 0202 by Kaleb Noe RN ORAL CARE GIVEN.
--- NOTE | 2020-01-26 02:00 | NUR ---
PT IN STABLE CONDITION. STILL SEDATED ON VERSED AND FENTANYL. NO S/S OF DISTRESS NOTED.
--- NOTE | 2020-01-26 04:00 | NUR ---
ORAL CARE DONE. MOMIN CARE DONE. PT LINENS CHANGED.
[2020-01-26] MEDS: BLOOD GLUCOSE MONITORING 1 DEV DEV FS SCH ×3 (05:28→17:42)
--- NOTE | 2020-01-26 05:28 | NUR ---
BS 408. DR FERREIRA NOTIFIED OF THE HIGH BS AND ORDERED TO GIVE PATIENT 16 UNITS OF HUMALOG.
[2020-01-26] MEDS: INSULIN LISPRO SLIDING SCALE 100 UNITS/ML VIAL SUBQ PRN ×3 (05:29→17:42)
[2020-01-26] MEDS: MIDAZOLAM MDV 50 MG in NACL 0.9% 40 ML IV PRN (05:34)
--- NOTE | 2020-01-26 05:34 | NUR ---
NEW BAG VERSED MIXED AND HUNG FOR CONTINUOUS DRIP.
[2020-01-26 05:57] LABS: ANION GAP 14.4 (8-16); CARBON DIOXIDE 21.7 mmol/L (21-32); CREATININE 1.7 mg/dL (0.6-1.3); POTASSIUM 4.1 mmol/L (3.5-5.1)
[2020-01-26 07:13] LABS: BASOPHILS # (AUTO) 0.1 K/uL (0.00-0.22); BASOPHILS % (AUTO) 0.4 % (0.0-2.0); EOSINOPHILS % (AUTO) 0.1 % (0.0-4.0); HEMATOCRIT 30.6 % (36-52); HEMOGLOBIN 9.7 g/dL (12.0-18.0); LYMPHOCYTES # (AUTO) 0.9 K/uL (2.0-11.5); LYMPHOCYTES % (AUTO) 6.5 % (20.5-51.1); MEAN CORPUSCULAR HEMOGLOBIN 30 pg (27-31); MEAN CORPUSCULAR HGB CONC 32 g/dL (33-37); MEAN CORPUSCULAR VOLUME 92.9 fL (80-94); MONOCYTES # (AUTO) 0.4 K/uL (0.8-1.0); MONOCYTES % (AUTO) 3.1 % (1.7-9.3); NEUTROPHILS # (AUTO) 12.8 K/uL (1.8-7.7); NEUTROPHILS % (AUTO) 89.9 % (42.2-75.2); PLATELET COUNT (AUTO) 82 K/uL (140-450); RED BLOOD CELL COUNT(AUTO) 3.29 MIL/uL (4.20-6.10); RED CELL DISTRIBUTION WIDTH 16.9 % (11.6-13.7); WHITE BLOOD COUNT (AUTO) 14.2 K/uL (4.8-10.8)
--- NOTE | 2020-01-26 07:14 | NUR ---
REPORT GIVEN TO AM NURSE AT BEDSIDE. PT IN STABLE CONDITION.
--- NOTE | 2020-01-26 07:34 | NUR ---
PT HAS EYES CLOSED; RASS -1, SEDATED ON VERSED @ 2MG/HR AND FENTANYL DRIP @ 0.5 MCG/KG/HR. PT ABLE TO MOVE BILATERAL UPPER AND LOWER EXTREMITIES; BILAT SOFT WRIST RESTRAINTS IN PLACE. ETT TO VENT @ 25 % FIO2, THIN WHITE SECRETIONS NOTED. DIMINISHED BREATH SOUNDS. NSR 80-90S, GENERALIZED EDEMA +3 PITTING, +1 PULSES TO BILATERAL UPPER AND LOWER EXTREMITIES. ABD SOFT, ROUND, ASCITES. OGT IN PLACE; + PLACEMENT. NEPRO RUNNING @ 35 ML/HR 40 ML RESIDUALS NOTED. MOMIN CATH IN PLACE; YELLOW URINE NOTED. SKIN NON INTACT, SEE WOUND CARE ASSESSMENT. R UPPER ARM MIDLINE IN PLACE. BED LOCKED IN LOWEST POSITION. Addendum: 01/26/20 at 1023 by Smith Morales RN ETT TO VENT28% FIO2
--- NOTE | 2020-01-26 07:37 | NUR ---
RECEIVED INTUBATED PT ON VENT WITH A 7.5 ETT SECURED @23 TEETH/GUMS. VENT SETTINGS AC 16, VT 500, PEEP 5 AND FIO2 28%. PT IS SEDATED AT THIS TIME. PT SUCTIONED OBTAINED SMALL AMOUNT OF THICK YELLOW SECRETIONS, AIRWAY IS PATENT AND ETT IS SECURE. VENT IS PLUGGED INTO A RED OUTLET WITH ALARMS ON AND FUNCTIONING. WILL CONTINUE TO MONITOR.
[2020-01-26] MEDS: COLCHICINE 0.6 MG TAB PO SCH ×2 (08:28→20:23)
[2020-01-26] MEDS: HYDROCORTISONE NA SUCC 100 MG/2 ML VIAL IV SCH ×2 (08:28→20:22)
[2020-01-26] MEDS: ZINC SULF 220 MG CAP GT SCH (08:28)
[2020-01-26] MEDS: VIT-B COMP/VIT-C/FOLIC ACID 1 TAB GT SCH (08:28)
[2020-01-26] MEDS: PANTOPRAZOLE 40 MG INJ VIAL IVP SCH (08:28)
[2020-01-26] MEDS: NITROGLYCERIN 2% 1 GM PKT TP SCH (08:29)
[2020-01-26] MEDS: INSULIN LANTUS 100 UNITS/ML 10 ML VIAL SUBQ SCH (08:30)
[2020-01-26] MEDS ORDERED: VANCOMYCIN 750 MG in NACL 0.9% 250 ML IV SCH (09:00)
--- NOTE | 2020-01-26 09:45 | NUR ---
VAP ORAL CARE DONE. PT TURNED AND REPOSITIONED. FLACC 0 RASS -1.
--- NOTE | 2020-01-26 11:10 | NUR ---
CHANGE OF SKIN CONDITION: ASSESSMENT DONE WITH PRIMARY RN, BUTTOCKS AND SACRAL NOT RESPONDING TO TREATMENT, SDTI TO RIGHT HEEL WHICH POSSIBLE ADMITTED WITH AND IT BECOMES MORE VISIBLE SINCE MULTIPLE PETECHIA/PURPURA TO BILATERAL FEET HAS SHOWN IMPROVEMENT SINCE ADMISSION. -LEFT 3rd DIGIT TOE 0.3X0.3 CM ISCHEMIA BLACK SPOT REMAIN SAME CONDITION -INCONTINENT ASSOCIATE DERMATITIS (IAD) TO: B/L GROINS EXTENDED TO SCROTAL WITH +3 EDEMA SKIN RED AND INTACT -PRESSURE ULCER INJURY SDTI RIGHT HEEL 3X2CM DARK PURPLE COLOR WITH SKIN INTACT. RECOMMENDATIONS: -DISCONTINUE Z-GUARD TO SACRALCOCCYX AND BUTTOCKS. -CLEANSE SACRALCOCCYX AND R/L BUTTOCKS WITH WOUND CARE SOLUTION, PAT DRY, APPLY THERAHONEY GEL TO WOUND BED, COVER WITH FOAM DRESSING AND CHANGE QD AND PRN IF SOILING, OFFLOADING AREAS AT ALL TIME -HEEL RAISERS TO RIGHT AND LEFT HEELS, OFFLOADING AT ALL TIME -OFFLOADING SCROTUM WITH FOLDED PILLOW CASE, APPLY THIN LAYER OF Z-GUARD POC DISCUSSED WITH PRIMARY RN.
[2020-01-26] MEDS ORDERED: Z-GUARD PASTE TP PRN (12:00)
[2020-01-26] MEDS ORDERED: THERAHONEY GEL 42.5 GM TP PRN (12:20)
[2020-01-26] MEDS: FOAM DRESSING TP SCH (13:00)
[2020-01-26] MEDS: THERAHONEY GEL 42.5 GM TP SCH (13:00)
--- NOTE | 2020-01-26 13:59 | NUR ---
SEDATION VACATION DONE. PT @ RASS-3. FLACC 0. WILL CONTINUE TO OBSERVE.
--- NOTE | 2020-01-26 13:59 | NUR ---
PT PLACED ON SBT CPAP 5 PS 10 AND FIO2 24%. PT OFF SEDATION BUT NOT ABLE TO FOLLOW COMMANDS OR OPEN EYES. ALARMS SET APPROPRIATELY WILL CONTINUE TO MONITOR.
[2020-01-26] MEDS: ALBUMIN HUMAN 25% 100 ML IV SCH ×2 (14:06→20:20)
[2020-01-26] MEDS: FUROSEMIDE 40 MG/4 ML VIAL IVP SCH ×2 (15:00→23:56)
--- NOTE | 2020-01-26 15:59 | NUR ---
PT LASTED 2 HOURS SBT BEFORE VENT ALARMED BACK INTO A/C VC MODE. PT STILL UNABLE TO FOLLOW COMMANDS OR OPEN EYES.
--- NOTE | 2020-01-26 16:15 | NUR ---
PT TURNED AND REPOSITIONED, FLACC 0 RASS-3. TOLERATING SBT FOR X2 HOURS. PM CARE DONE, LINEN CHANGED. VAP ORAL CARE DONE. WILL CONTINUE TO OBSERVE.
--- NOTE | 2020-01-26 17:35 | NUR ---
DR LE @ EXAMINING PT @ BEDSIDE. NEW ORDERS FOR AMMONIA LEVEL, AND TO HOLD SEDATION. SEDATION HOLIDAY TODAY. WILL CARRY OUT ORDERS WILL CONTINUE TO OBSERVE.
--- NOTE | 2020-01-26 17:37 | NUR ---
FIO2 24%. PT OFF SEDATION AT THIS TIME NOT IN ANY DISTRESS. VENT ALARMS ON AND FUNCTIONING. ETT IS SECURE WITH A PATENT AIRWAY.
--- NOTE | 2020-01-26 17:48 | NUR ---
SEDATION ON HOLD SINCE 1359 THIS PM, RASS -3 @ THIS TIME. FLACC 0. WILL CONTINUE TO OBSERVE.
--- NOTE | 2020-01-26 19:25 | NUR ---
RT AT BEDSIDE FOR SUCTIONING AND TO ASSESS VENT ALARMING. PATIENT NOT IN DISTRESS, THICK CREAMY SECRETIONS NOTED.
--- NOTE | 2020-01-26 19:33 | NUR ---
REPORT GIVEN TO AUDIO/VISUAL OPERATOR FOR CONTINUITY OF CARE.
--- NOTE | 2020-01-26 20:05 | NUR ---
RECEIVED ENDORSEMENT FROM [facility] NURSE. PATIENT LETHARGIC, WITHDRAWS TO DEEP PAIN, DOES NOT FOLLOW COMMANDS. DOES NOT OPEN EYES, PERRL 3MM BRISK. ETT TO VENT, ACVC 16 FI02 24%, TV 500, PEEP 5. LUNG SOUNDS CLEAR, EQUAL CHEST RISE. PT SLIGHTLY TACHYPNEIC, RESPIRATIONS IN 30's. S1S2, SINUS TACH ON MONITOR. SKIN WARM AND DRY, EDEMATOUS BUE AND BLE. PITTING, 4+. STEFFANY MIDLINE IN PLACE, FLUSHED AND PATENT. NO SYMPTOMS AND GOOD BLOOD RETURN. OGT IN PLACE TO TUBE FEEDING, NEPRO @ 25ML/HR. ABDOMEN LARGE SOFT AND NONTENDER, WITH ACTIVE BOWEL SOUNDS. MOMIN IN PLACE, YELLOW URINE WITH SOME SEDIMENT. SKIN NOT INTACT, SMALL SKIN TEAR TO RIGHT FOREARM, VERSATEL IN PLACE. BILATERAL HEELS WITH DTI. FOAM DRESSINGS AND HEEL PROTECTORS IN PLACE. SOME PETECHIAE NOTED AT BILATERAL FEET. PRESSURE ULCER TO RIGHT/LEFT BUTTOCKS AND SACRUM. DRESSING DRY AND INTACT. BILATERAL SOFT WRIST RESTRAINTS IN PLACE. NO INJURIES NOTED. SKIN AND CIRCULATION INTACT. HOB 30 DEGREES, BED LOCKED AND IN LOWEST POSITION. CONTACT PRECAUTIONS IN PLACE. WILL CONTINUE TO MONITOR.
--- NOTE | 2020-01-26 21:25 | NUR ---
AIR CHECK COMPLETE AT OGT. GASTRIC RESIDUALS 60ML. ADMINISTERED ALL SCHEDULED MEDICATIONS. TOLERATED WELL. TURNED AND POSITIONED PATIENT. PROVIDED ORAL CARE.
--- NOTE | 2020-01-26 22:15 | NUR ---
PT HAS EYES CLOSED. DOES NOT FOLLOW COMMANDS. WILL MOVE HEAD AND LIFT LEFT ARM WHEN STERNAL RUBBED. FLACC 0. SAFETY MEASURES IN PLACE.
[2020-01-27] VITALS (19 sets, daily range): BP systolic 95–145; BP diastolic 62–112
[2020-01-27] MEDS: BLOOD GLUCOSE MONITORING 1 DEV DEV FS SCH ×5 (00:08→23:57)
[2020-01-27] MEDS: Z-GUARD PASTE TP SCH ×2 (00:08→13:00)
--- NOTE | 2020-01-27 00:10 | NUR ---
VAP ORAL CARE PROVIDED. PATIENT WITHDRAWS TO SUCTIONING, AND SOME PAIN. NOT ABLE TO FOLLOW COMMANDS. ASSESSED SKIN AT RESTRAINTS, NO INJURIES NOTED. SKIN EDEMATOUS. PERFORMED ROM EXERCISES. RESTRAINTS BACK IN PLACE. SAFETY MEASURES IN PLACE, WILL CONTINUE TO MONITOR.
[2020-01-27] MEDS: INSULIN LISPRO SLIDING SCALE 100 UNITS/ML VIAL SUBQ PRN ×5 (00:19→23:58)
--- NOTE | 2020-01-27 02:15 | NUR ---
NO SIGNS OF DISTRESS NOTED. BREATHING IS EVEN AND UNLABORED, SLIGHTLY TACHYPNEIC, RESPIRATIONS IN HIGH 20's. SATURATIONS WITHIN RANGE. HEART RATE IN 120's. ALL OTHER VITALS WITHIN RANGE.
--- NOTE | 2020-01-27 04:10 | NUR ---
VAP CARE PROVIDED. SPONGE BATH AND MOMIN CARE PROVIDED. LARGE LOOSE BROWN BOWEL MOVEMENT. PATIENT ABLE TO MOVE ARMS SLIGHTLY. MOVES HEAD SIDE TO SIDE. IS NOT OPENING EYES OR FOLLOWING COMMANDS. REPLACED DRESSING AT SACRUM AND APPLIED THERAHONEY. RESTRAINTS IN PLACE. NO INJURIES NOTED. HOB 30 DEGREES. GTUBE RESIDUALS 50ML. RIGHT UPPER ARM MIDLINE STILL INTACT.
[2020-01-27] MEDS: ALBUMIN HUMAN 25% 100 ML IV SCH ×3 (05:00→23:57)
[2020-01-27 05:51] LABS: ALBUMIN 2.3 g/dL (3.4-5.0); ANION GAP 14.8 (8-16); CARBON DIOXIDE 21.6 mmol/L (21-32); CREATININE 1.8 mg/dL (0.6-1.3); MAGNESIUM 1.8 mg/dL (1.8-2.4); PHOSPHORUS 2.5 mg/dL (2.5-4.9); POTASSIUM 3.4 mmol/L (3.5-5.1); TOTAL BILIRUBIN 0.6 mg/dL (0.0-1.0)
[2020-01-27 05:56] LABS: BASOPHILS % (AUTO) 0.2 % (0.0-2.0); HEMATOCRIT 31.9 % (36-52); HEMOGLOBIN 10.2 g/dL (12.0-18.0); LYMPHOCYTES # (AUTO) 1.3 K/uL (2.0-11.5); LYMPHOCYTES % (AUTO) 8.8 % (20.5-51.1); MEAN CORPUSCULAR HEMOGLOBIN 29 pg (27-31); MEAN CORPUSCULAR HGB CONC 32 g/dL (33-37); MONOCYTES # (AUTO) 0.7 K/uL (0.8-1.0); MONOCYTES % (AUTO) 4.3 % (1.7-9.3); NEUTROPHILS # (AUTO) 13.3 K/uL (1.8-7.7); NEUTROPHILS % (AUTO) 86.7 % (42.2-75.2); PLATELET COUNT (AUTO) 91 K/uL (140-450); RED BLOOD CELL COUNT(AUTO) 3.51 MIL/uL (4.20-6.10); RED CELL DISTRIBUTION WIDTH 16.3 % (11.6-13.7); WHITE BLOOD COUNT (AUTO) 15.3 K/uL (4.8-10.8)
--- NOTE | 2020-01-27 07:10 | NUR ---
PT REMAINS ON DOCUMENTED SETTINGS. ETT IS SECURED AND INTACT 7.5 @23. SX: THIN YLW SECRETIONS. VENT CHECK DONE. VENT PLUGGED INTO RED OUTLET, ALARM ON AND FUNCTIONING, AMBU BAG AT BEDSIDE. WILL CONTINUE TO MONITOR.
--- NOTE | 2020-01-27 07:25 | NUR ---
RECEIVED REPORT FROM NIGHT NURSE. PT IN BED, LETHARGIC, NO DISTRESS NOTED, FLACC 0, RESPIRATIONS EVEN AND UNLABORED ON ETT TO VENT IN ACVC MODE AT 24% FIO2, TV 500, R 16 AND PEEP 5. 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 SKIN IS NON INTACT WITH SACRAL PRESSURE WOUND, BILATERAL HEEL DTI AND LOWER EXTREMITY PETECHIAE. PITTING EDEMA TO EXTREMITIES. DRY WEIGHT 110KG. R UA MIDLINE IN PLACE PATENT AND ASYMPTOMATIC INFUSING PER ORDER. BILATERAL SOFT WRIST RESTRAINTS IN PLACE. MOMIN IN PLACE. OGT IN PLACE INFUSING NEPRO AT 35ML/H. SAFETY MEASURES IN PLACE, CALL LIGHT WITHIN REACH, BED IN LOW POSITION. WILL CONTINUE TO MONITOR.
[2020-01-27] MEDS: FUROSEMIDE 40 MG/4 ML VIAL IVP SCH (07:34)
--- NOTE | 2020-01-27 08:25 | NUR ---
RECEIVED CALL FROM PT DAUGHTER JUANITA AND UPDATED HER ON THE CONDITION OF THE PT
[2020-01-27] MEDS: ZINC SULF 220 MG CAP GT SCH (09:17)
[2020-01-27] MEDS: HYDROCORTISONE NA SUCC 100 MG/2 ML VIAL IV SCH ×2 (09:17→21:16)
[2020-01-27] MEDS: PANTOPRAZOLE 40 MG INJ VIAL IVP SCH (09:17)
[2020-01-27] MEDS: VIT-B COMP/VIT-C/FOLIC ACID 1 TAB GT SCH (09:17)
[2020-01-27] MEDS: COLCHICINE 0.6 MG TAB PO SCH ×2 (09:18→21:17)
[2020-01-27] MEDS: INSULIN LANTUS 100 UNITS/ML 10 ML VIAL SUBQ SCH (09:18)
[2020-01-27] MEDS: NITROGLYCERIN 2% 1 GM PKT TP SCH (09:18)
--- NOTE | 2020-01-27 09:46 | NUR ---
MEDICATIONS ADMINISTERED PER ORDER. PT TOLERATED WELL. PT LETHARGIC BUT ABLE TO UNDERSTAND ME AND GENTLY NOD OR SHAKE HEAD. VAP ORAL CARE GIVEN. PT REPOSITIONED. TEMP 99.2. NO DISTRESS NOTED, RESPIRATIONS EVEN AND UNLABORED ON ETT TO VENT. WILL CONTINUE TO MONITOR.
--- NOTE | 2020-01-27 11:05 | NUR ---
PLACED PT ON CPAP 05/03 24%. TOLERATING WELL, NURSE IS AWARE OF CHANGE. ALARMS ON AND FUNCTIONING, PT SHOW NO SIGN OF DISTRESS AT THIS TIME, WILL CONTINUE TO MONITOR.
--- NOTE | 2020-01-27 11:48 | NUR ---
BLOOD SUGAR 316, 8 UNITS HUMALOG INSULIN GIVEN. VAP ORAL CARE GIVEN. PRESSURE POINTS OFFLOADED. NO DISTRESS NOTED. RESPIRATIONS EVEN AND UNLABORED. WILL CONTINUE TO MONITOR.
[2020-01-27] MEDS ORDERED: ALBUMIN HUMAN 25% 100 ML IV SCH (12:06)
[2020-01-27] MEDS: FOAM DRESSING TP SCH (13:00)
[2020-01-27] MEDS: FUROSEMIDE 20 MG/2 ML VIAL IVP SCH ×2 (13:00→21:17)
[2020-01-27] MEDS ORDERED: VANCOMYCIN 750 MG in DEXTROSE 5% 250 ML IV SCH (13:00)
[2020-01-27] MEDS: THERAHONEY GEL 42.5 GM TP SCH (13:00)
--- NOTE | 2020-01-27 13:26 | NUR ---
MEDICATIONS ADMINISTERED PER ORDER, PT TOLERATED WELL, NO DISTRESS NOTED. RESPIRATIONS EVEN AND UNLABORED. FLACC 0.
[2020-01-27] MEDS: KCL 20 MEQ/WATER INJ PREMIX 200 ML IV SCH ×2 (15:00→15:16)
[2020-01-27] MEDS: POTASSIUM CHLORIDE 20% 40 MEQ/15 ML UDC GT PRN (15:17)
--- NOTE | 2020-01-27 15:52 | NUR ---
PT CLEANED AND REPOSITIONED. WOUND CARE DONE. VAP ORAL CARE GIVE. TEMP 98.9. PT CONTINUE ON CPAP TRIALS WITH EVEN AND UNLABORED RESPIRATIONS. NO DISTRESS NOTED. FLACC 0. WILL CONTINUE TO MONITOR.
--- NOTE | 2020-01-27 16:55 | NUR ---
PLACED PT BACK ON AC MODE. NURSE AWARE OF CHANGE. ETT IS SECURED AND INTACT. PT SHOWS NO SIGN OF DISTRESS AT THIS TIME. VENT PLUGGED INTO RED OUTLET, ALARMS ON AND FUNCTIONING, AMBU BAG AT BEDSIDE.
--- NOTE | 2020-01-27 17:45 | NUR ---
PT EXTUBATED AT THIS TIME PER DR. LE. PT CURRENTLY ON 3L NC. SHOWS NO SIGN OF DISTRESS. NO STRIDOR. GOOD AERATION, DIM AT THE BASES. SPO2 READING 97%. WILL CONTINUE TO MONITOR.
--- NOTE | 2020-01-27 18:17 | NUR ---
PT HAD BOWEL MOVEMENT. PT CLEANED AND REPOSITIONED.
--- NOTE | 2020-01-27 19:15 | NUR ---
REPORT GIVEN TO NIGHT NURSE FOR CONTINUITY OF CARE
--- NOTE | 2020-01-27 20:30 | NUR ---
RECEIVED REPORT FROM INOCENTE RAZO@BEDSIDE. PT IN STABLE CONDITION. AAOX0-1. PT OFF OF SEDATION BUT STILL DROWSY. FLACC 0. NO SOB ON 3L O2 VIA NC. AFEBRILE@98.3. PT HAS MOMIN DRAINING CLEAR YELLOW URINE. PT HAS OG TUBE RUNNING FEEDINGS. NEPRO@35ML/HR WITH 300ML Q6H PATENT AND INTACT. IV SITE R UA MIDLINE RUNNING D5@TKO PATENT AND INTACT. SKIN WARM, DRY, AND NOT INTACT DUE TO MULTIPLE WOUNDS. SEE WOUND NOTES. PT HAS PITTING EDEMA +3 BILATERAL LOWER AND UPPER EXTREMITIES. BED LOCKED IN LOW POSITION. CALL RED WITHIN REACH. SAFETY PRECAUTION IN PLACE. ALL NEEDS MET AT THIS TIME.
--- NOTE | 2020-01-27 21:16 | NUR ---
SOLUCORTEF AND LASIX GIVEN IVP. COLCHICINE GIVEN THROUGH OG TUBE. RESIDUAL OF 0ML. PT TOLERATED WELL.
--- NOTE | 2020-01-27 23:57 | NUR ---
BS 317. 8 UNITS OF HUMALOG GIVEN. ALBUMIN HUNG AND RUNNING.
[2020-01-28] VITALS (10 sets, daily range): BP systolic 119–143; BP diastolic 63–91
[2020-01-28] MEDS: Z-GUARD PASTE TP SCH ×2 (01:09→13:14)
--- NOTE | 2020-01-28 01:50 | NUR ---
PT SLEEPING COMFORTABLY BUT AROUSABLE. NO S/S OF DISTRESS NOTED. NO COMPLAINTS OF PAIN. NO SOB. AFEBRILE. WILL CONTINUE TO MONITOR.
--- NOTE | 2020-01-28 04:30 | NUR ---
MORNING CARE DONE. MOMIN CARE DONE. LINENS CHANGED. PT HAD A BM. FECAL BAG APPLIED.
[2020-01-28] MEDS: BLOOD GLUCOSE MONITORING 1 DEV DEV FS SCH ×3 (06:26→18:09)
[2020-01-28] MEDS: ALBUMIN HUMAN 25% 100 ML IV SCH ×3 (06:26→18:21)
--- NOTE | 2020-01-28 06:26 | NUR ---
BS 323. 8 UNITS OF HUMALOG GIVEN. ALBUMIN HUNG AND RUNNING. PT TOLERATING WELL.
[2020-01-28] MEDS: INSULIN LISPRO SLIDING SCALE 100 UNITS/ML VIAL SUBQ PRN ×3 (06:27→18:10)
[2020-01-28 06:50] LABS: ANION GAP 14.8 (8-16); CREATININE 1.6 mg/dL (0.6-1.3)
--- NOTE | 2020-01-28 06:55 | NUR ---
CRITICAL LAB VALUE CALLED IN POTASSIUM 2.8. BUN 71. BUN TRENDING DOWN. WILL CALL MD FOR POTASSIUM.
[2020-01-28 06:56] LABS: POTASSIUM 2.8 mmol/L (3.5-5.1)
[2020-01-28 06:57] LABS: MAGNESIUM 1.8 mg/dL (1.8-2.4); PHOSPHORUS 2.2 mg/dL (2.5-4.9)
--- NOTE | 2020-01-28 07:20 | NUR ---
REPORT GIVEN TO AM NURSE AT BEDSIDE. PT IN STABLE CONDITION.
--- NOTE | 2020-01-28 07:40 | NUR ---
DR. LE PAGED THROUGH EXCHANGE TO NOTIFY OF LAB RESULTS K+ 2.8.
--- NOTE | 2020-01-28 07:55 | NUR ---
DR. LE HAS NOT CALLED BACK YET. DR. DONIS PAGED.
--- NOTE | 2020-01-28 08:00 | NUR ---
AWAKE. ANSWERS VERBALLY TO QUESTIONS. SPEECH SL. GARBLED. FOLLOWS COMMANDS. MOVES ALL EXT. GEN WEAKNESS NOTED. RT MIDLINE IV SITE INTACT AND PATENT. SITE CLEAR. D5W INFUSING AT 5 ML/HR. 02 3L/MIN/NC. 02 SAT 98%. RR 23 TO 25/MIN. SL ABDOMINAL RETRACTIONS NOTED AT TIMES. FEW RHONCHI HEARD ON AUSCULTATION. COUGHS BUT UNABLE TO EXPECTORATE. SUCTIONED ORALLY THICK YELLOWISH SECRETIONS. ORAL CARE DONE. MOMIN CATH INTACT AND PATENT DRAINING TO LIGHT QUOC URINE. INCONTINENT OF LARGE AMT. LOOSE BROWNISH STOOLS. RECTAL BAG LEAKING. PERINEAL CARE AND BATH GIVEN. NEW RECTAL BAG APPPLIED.
--- NOTE | 2020-01-28 08:05 | NUR ---
DR. DONIS CALLED. NOTIFIED OF LAB. RESULTS. GAVE AN ORDER.
--- NOTE | 2020-01-28 08:30 | NUR ---
OGT INTACT AND PATENT. PLACEMENT VERIFIED BY AIRCHECK. RESIDUAL GREATER THAN 150 MLS. OGT FEEDING HELD
[2020-01-28] MEDS: VIT-B COMP/VIT-C/FOLIC ACID 1 TAB GT SCH (08:46)
[2020-01-28] MEDS: ZINC SULF 220 MG CAP GT SCH (08:46)
[2020-01-28] MEDS: HYDROCORTISONE NA SUCC 100 MG/2 ML VIAL IV SCH ×2 (08:46→22:03)
[2020-01-28] MEDS: NITROGLYCERIN 2% 1 GM PKT TP SCH (08:47)
[2020-01-28] MEDS: FUROSEMIDE 20 MG/2 ML VIAL IVP SCH (08:47)
[2020-01-28] MEDS: PANTOPRAZOLE 40 MG INJ VIAL IVP SCH (08:47)
[2020-01-28] MEDS: COLCHICINE 0.6 MG TAB PO SCH ×2 (08:48→22:05)
[2020-01-28] MEDS ORDERED: POTASSIUM PHOSPHATE 30 MM in NACL 0.9% 250 ML IV SCH (09:00)
--- NOTE | 2020-01-28 09:15 | NUR ---
IV K PHOS 30 MM IN 250 ML 0.9 NS STARTED AT 42.5 ML/HR.
[2020-01-28] MEDS: INSULIN LANTUS 100 UNITS/ML 10 ML VIAL SUBQ SCH (09:17)
[2020-01-28 10:19] LABS: BASOPHILS # (AUTO) 0.1 K/uL (0.00-0.22); BASOPHILS % (AUTO) 0.5 % (0.0-2.0); EOSINOPHILS # (AUTO) 0.1 K/uL (0-0.4); EOSINOPHILS % (AUTO) 0.5 % (0.0-4.0); HEMATOCRIT 28.5 % (36-52); HEMOGLOBIN 9.1 g/dL (12.0-18.0); LYMPHOCYTES # (AUTO) 1.4 K/uL (2.0-11.5); LYMPHOCYTES % (AUTO) 11.4 % (20.5-51.1); MEAN CORPUSCULAR HEMOGLOBIN 29 pg (27-31); MEAN CORPUSCULAR HGB CONC 32 g/dL (33-37); MEAN CORPUSCULAR VOLUME 92.3 fL (80-94); MONOCYTES # (AUTO) 0.6 K/uL (0.8-1.0); MONOCYTES % (AUTO) 5.2 % (1.7-9.3); NEUTROPHILS % (AUTO) 82.4 % (42.2-75.2); PLATELET COUNT (AUTO) 85 K/uL (140-450); RED BLOOD CELL COUNT(AUTO) 3.09 MIL/uL (4.20-6.10); RED CELL DISTRIBUTION WIDTH 16.3 % (11.6-13.7); WHITE BLOOD COUNT (AUTO) 12.2 K/uL (4.8-10.8)
--- NOTE | 2020-01-28 11:00 | NUR ---
OGT RESIDUAL 80 ML. OGT FEEDING NEPHRO RESTARTED AT 35 ML/HR WITH 300 ML H20 FLUSHES Q 4HRS. HOB ELEVATED 30 DEGREES.
--- NOTE | 2020-01-28 11:30 | NUR ---
IV SITE BLOODY. DRESSINGS REMOVED. DRESSING CHANGED WITH CENTRAL LINE IV CARE KIT. NO FURTHER BLEEDING NOTED.
--- NOTE | 2020-01-28 12:45 | NUR ---
DR. MCGARRY HERE TO SEE AND EXAMINE PT.
[2020-01-28] MEDS ORDERED: INSULIN LANTUS 100 UNITS/ML 10 ML VIAL SUBQ SCH (13:00)
[2020-01-28] MEDS: FOAM DRESSING TP SCH (13:13)
[2020-01-28] MEDS: THERAHONEY GEL 42.5 GM TP SCH (13:14)
[2020-01-28] MEDS: DEXTROSE 5% 1,000 ML IV SCH (14:49)
--- NOTE | 2020-01-28 14:54 | NUR ---
IV D5W STARTED AT 50 ML/HR VIA RT UPPER ARM MIDLINE CATH.
--- NOTE | 2020-01-28 16:30 | NUR ---
DR. MALLY DE GUZMAN OF PT'S DIARRHEA.
--- NOTE | 2020-01-28 16:30 | NUR ---
DR. BAL HERE TO SEE AND EXAMINE PT.
--- NOTE | 2020-01-28 17:15 | NUR ---
DR. LE HERE TO SEE AND EXAMINE PT.
--- NOTE | 2020-01-28 18:00 | NUR ---
OGT RESIDUAL 100 ML. OGT FEEDING NEPHRO AT 35 ML/HR. IN SR WITH RARE PACS AND PVCS. 02 3L/MIN/NC. 022 SAT 98%.
--- NOTE | 2020-01-28 19:15 | NUR ---
RECEIVED REPORT FROM AM SHIFT. PT SEEN AND ASSESSED. FOUND PT ON 3L NASAL CANNULA WITH SPO2 OF 96%. DIMINISHED BREATH SOUNDS ON AUSCULTATION. EQUAL CHEST RISE AND FALL. PATIENT IN NO RESPIRATORY DISTRESS AT THIS TIME. WILL CONTINUE TO MONITOR.
--- NOTE | 2020-01-28 19:30 | NUR ---
RECEIVED REPORT FROM DAY NURSE, NO ACUTE DISTRESS NOTED. PT S/P EXTUBATED 01/26. PT ALERT TO NAME, C/O SORE THROAT. MOVING ALL EXTREMITIES. 3L NC, DENIES SOB/CP, DIMINISHED BREATH SOUNDS. SR/ST 90-100S, GENERALIZED EDEMA NOTED. MOMIN CATH YELLOW URINE NOTED, OGT IN PLACE, NEPRO RUNNING FOR TUBE FEEDINGS. SKIN NON INTACT, MULTIPLE PRESSURE ULCERS NOTED, REDNESS TO FEET WITH FOAM BOOTS IN PLACE. PT ON PRESSURE RELIEVING MATTRESS. HOB>30 DEGREES, BED LOCKED IN LOWEST POSITION.
--- NOTE | 2020-01-28 19:58 | NUR ---
PT TRANSFERRED TO [facility], REPORT GIVEN TO VEENA RAZO.
--- NOTE | 2020-01-28 19:58 | NUR ---
RECEIVED PT FROM ICU / MIKE ROSE - RESPONDING BY EYES OPENING WHEN CALLING HIS NAME . RESPONDING TO SOUND AND TOUCH . W/ MIDLINE AT R UPPER ARM - INTACT AND PATENT - IVF INFUSING WELL , W/ FC CONNECTING TO URINE BAG DRAINING LIGHT QUOC COLOR , W/ O2 AT 3LPM/NC - O2 SAT WNL , ON TELE MONITOR - SR , PT IS BEDBOUND - LOW JONY SCALE - W/ OPEN WOUND ON SACRAL / BUTTOCKS - W/ RECTAL TUBE - PER ICU NURSE PT HAD DIARRHEA - ONCE - WILL MONITOR THE DIARRHEA , W/ O G TUBE - W/ ON GOING NEPRO TUBE FEEDING - W/ LARGE ABD. NOTED - HX RENAL FAILURE - W/ PROMINENT EDEMA IN ALL EXTREMITIES . FALL RISK - BED ALARM ON - SAFETY MEASURES IN PLACE . PLAN OF CARE DISCUSSED BUT UNABLE TO ASSESS WHETHER PT FULLY UNDERSTAND THE INSTRUCTION DUE TO MENTAL STATUS AND BARRIER ON THE MOUTH (ORAL TUBE ) - SECURE THE OGT W/ TAPE - WILL DO MOUTH CARE .HOOK TO O2 SAT MONITORING - WILL CONT. TO MONITOR - FULL CODE .
--- NOTE | 2020-01-28 20:35 | NUR ---
UPDATED PT FAMILY, JUANITA VERDUZCO, OLDEST DAUGHTER PH [phone], DAUGHTERS JUANITA AND FELICIANO REQUESTING NOT TO DISCLOSE INFO TO GIRLFRIEND, LUKAS, ADMITTING AND BASKET HAND WEAVER MADE AWARE MST NURSE VEENA, AND CHARGE NURSE ATIF AWARE.
--- NOTE | 2020-01-28 20:45 | NUR ---
SPOKE WITH LUKAS, ADVISED GIRLFRIEND UNABLE TO DISCLOSE INFO @ THIS TIME DUE TO FAMILY WISHES, LUKAS RICHTER USING PROFANE LANGUAGE. ADVISED TO CALL DAUGHTERS, JUANITA AND FELICIANO FOR PT CONDITION STATUS.
--- NOTE | 2020-01-28 22:00 | NUR ---
MADE ROUNDS , NO S/SX OF ACUTE DISTRESS NOTED - FLACC O - O2 SAT WNL . PER ICU NURSE PT - HAS DIARRHREA - I RECIEVED W/ 200 CC STOOL ON STOOL BAG - NO PROGRESS ON AMT . - WILL CONT. TO MONITOR.
[2020-01-29] VITALS: BP 120/60
--- NOTE | 2020-01-29 | NUR ---
MADE ROUNDS , NO S/SX OF ACUTE DISTRESS NOTED - ON TELE MONITOR - SR .WILL CONT. TO MONITOR.
[2020-01-29] MEDS: BLOOD GLUCOSE MONITORING 1 DEV DEV FS SCH ×5 (00:28→23:48)
[2020-01-29] MEDS: INSULIN LISPRO SLIDING SCALE 100 UNITS/ML VIAL SUBQ PRN ×5 (00:28→23:55)
[2020-01-29] MEDS: Z-GUARD PASTE TP SCH ×2 (00:29→13:00)
--- NOTE | 2020-01-29 02:00 | NUR ---
SLEEPING - OS SAT WNL - CHEST RISE AND FALL EQUALLY - WILL CONT. TO MONITOR.
[2020-01-29 04:00] VITALS: BP 130/86
--- NOTE | 2020-01-29 04:00 | NUR ---
MADE ROUNDS - NO S/SX OF ACUTE DISTRESS NOTED - O2 SAT WNL - ON TELE MONITOR - SR . WILL CONT. TO MONITOR.
--- NOTE | 2020-01-29 06:00 | NUR ---
MADE ROUNDS , AWAKE - NO S/SX OF ACUTE DISTRESS NOTED AT THIS TIME . O2 SAT WNL - SR ON TELE MONITOR .
--- NOTE | 2020-01-29 07:15 | NUR ---
RECEIVED REPORT FROM NIGHT NURSE FOR CONTINUITY OF CARE, PT IS STABLE, PT AAOX2, PT HAS STEFFANY MIDLINE INFUSING D5W AT 50 ML/H, PT HAS RECTAL TUBE, MOMIN CATH, PT ON ORAL FEEDING TUBE INFUSING NEPHRO AT 35ML/H WITH WATER FLUSH OF 300 ML Q4H, PT HAS OPEN SACRAL WOUND THAT IS A STAGE 3 ULCER, REDNESS ON BILATERAL HEELS, L FA SKIN TEAR, BED IN LOW POSITION, SAFETY MEASURES IN PLACE, CALL LIGHT WITHIN REACH.
--- NOTE | 2020-01-29 07:30 | NUR ---
ENDORSED TO HILTON ELLIS - PT - STABLE - NO PROGRESS OF DIARRHEA . BP WNL . Addendum: 01/29/20 at 0801 by Rut Hyatt RN ENDORSED TO AM SHIFT - PER PT'S DAUGHTERS REQUEST - DON'T TELL ANY MEDICAL INFO TO PT'S GIRLFRIEND .
[2020-01-29 07:37] LABS: BASOPHILS % (AUTO) 0.2 % (0.0-2.0); HEMATOCRIT 28.3 % (36-52); HEMOGLOBIN 9.1 g/dL (12.0-18.0); LYMPHOCYTES # (AUTO) 1.1 K/uL (2.0-11.5); LYMPHOCYTES % (AUTO) 7.3 % (20.5-51.1); MEAN CORPUSCULAR HEMOGLOBIN 29 pg (27-31); MEAN CORPUSCULAR HGB CONC 32 g/dL (33-37); MEAN CORPUSCULAR VOLUME 90.7 fL (80-94); MONOCYTES # (AUTO) 0.5 K/uL (0.8-1.0); MONOCYTES % (AUTO) 3.3 % (1.7-9.3); NEUTROPHILS # (AUTO) 13.1 K/uL (1.8-7.7); NEUTROPHILS % (AUTO) 89.2 % (42.2-75.2); PLATELET COUNT (AUTO) 88 K/uL (140-450); RED BLOOD CELL COUNT(AUTO) 3.12 MIL/uL (4.20-6.10); RED CELL DISTRIBUTION WIDTH 15.7 % (11.6-13.7); WHITE BLOOD COUNT (AUTO) 14.7 K/uL (4.8-10.8)
[2020-01-29 07:58] LABS: ANION GAP 13.4 (8-16); CREATININE 1.5 mg/dL (0.6-1.3); MAGNESIUM 1.8 mg/dL (1.8-2.4); PHOSPHORUS 2.5 mg/dL (2.5-4.9); TOTAL BILIRUBIN 0.7 mg/dL (0.0-1.0)
[2020-01-29 08:00] VITALS: BP 146/92
[2020-01-29 08:46] LABS: POTASSIUM 2.4 mmol/L (3.5-5.1)
[2020-01-29] MEDS ORDERED: VANCOMYCIN 1,000 MG in NACL 0.9% 250 ML IV SCH (09:00)
[2020-01-29] MEDS ORDERED: INSULIN LANTUS 100 UNITS/ML 10 ML VIAL SUBQ SCH ×2 (09:00→14:00)
--- NOTE | 2020-01-29 09:00 | NUR ---
REPORTED CRITICAL LAB VALUE OF POTASSIUM 2.[address] JACOBS, RECIEVED TORB FOR 80 MEQ K DUR PO ONCE, BNP LAB AT 1300. WILL PUT IN ORDERS
[2020-01-29] MEDS ORDERED: POTASSIUM CHLORIDE 10 MEQ TABER PO ONE (09:05)
[2020-01-29] MEDS: VIT-B COMP/VIT-C/FOLIC ACID 1 TAB GT SCH (10:11)
[2020-01-29] MEDS: ZINC SULF 220 MG CAP GT SCH (10:12)
[2020-01-29] MEDS: PANTOPRAZOLE 40 MG INJ VIAL IVP SCH (10:14)
[2020-01-29] MEDS: COLCHICINE 0.6 MG TAB PO SCH ×2 (10:15→20:22)
[2020-01-29] MEDS: NITROGLYCERIN 2% 1 GM PKT TP SCH (10:19)
[2020-01-29] MEDS: POTASSIUM CHLORIDE 20% 40 MEQ/15 ML UDC GT SCH ×2 (10:20→12:19)
--- NOTE | 2020-01-29 10:35 | NUR ---
ADMINISTERED SCHEDULED MEDICATION, MEDICATION EDUCATION GIVEN, PT LETHARGIC, PT IS STABLE, CALL LIGHT WITHIN REACH, BED IN LOW POSITION. WILL CONTINUE TO MONITOR.
--- NOTE | 2020-01-29 10:41 | NUR ---
UPDATE DAUGHTER LAURA ON PT CONDITION, DAUGHTER DOES NOT WANT PT'S GIRLFRIEND LUKAS TO GET ANY MEDICAL INFORMATION REGARDING THE PT.
[2020-01-29 12:00] VITALS: BP 134/83
[2020-01-29] MEDS: THERAHONEY GEL 42.5 GM TP SCH (13:00)
[2020-01-29] MEDS: HYDROCORTISONE NA SUCC 100 MG/2 ML VIAL IV SCH ×2 (13:18→21:19)
[2020-01-29] MEDS: DEXTROSE 5% 1,000 ML IV SCH (13:19)
[2020-01-29 13:26] LABS: ANION GAP 15.9 (8-16); CARBON DIOXIDE 23.1 mmol/L (21-32); CREATININE 1.5 mg/dL (0.6-1.3)
--- NOTE | 2020-01-29 13:28 | NUR ---
ADMINISTERED 6 UNITS OF HUMALOG FOR BLOOD GLUCOSE OF 295, ADMINISTERED SCHEDULED MEDICATED, MEDICATION EDUCATION GIVEN, PT TOLERATED WELL, PT IS STABLE, CALL LIGHT WITHIN REACH.
[2020-01-29] MEDS ORDERED: KCL 20 MEQ/WATER INJ PREMIX 200 ML IV SCH (14:00)
[2020-01-29] MEDS: POTASSIUM CHL 20 MEQ / DEXT 5% 1,000 ML IV SCH (14:27)
[2020-01-29] MEDS: FOAM DRESSING TP SCH (15:38)
[2020-01-29 16:00] VITALS: BP 139/91
--- NOTE | 2020-01-29 16:30 | NUR ---
PT PASSED SWALLOW EVALUATION, PT WILL BE ON CCHO 60 GRAM PUREED/ NECTAR THICK DIET, DR JACOBS AWARE AND SAID TO INPUT THE ORDER TO REMOVE O G-TUBE AND PLACE THE PT ON A DIET.
--- NOTE | 2020-01-29 17:06 | NUR ---
ACCEPTED CONTINUITY OF CARE FROM NURSE. PATIENT IS IN STABLE CONDITION. NO S/S OF DISTRESS NOTED. WILL CONTINUE TO MONITOR. Addendum: 01/29/20 at 2143 by Adithya Perez [facility] ACCEPTED CONTINUITY OF CARE AT 1906
--- NOTE | 2020-01-29 17:30 | NUR ---
ST CLARIFICATION NOTE Pt DEMONSTRATES MODERATE OROPHARYNGEAL DYSPHAGIA. Pt CURRENTLY WITH OG TUBE IN PLACE, WHICH MAY HAVE IMPACTED SENSATION AND AP TRANSFER SLIGHTLY. Pt WAS ABLE TO TOLERATE HONEY THICK LIQUIDS BY TSP, NECTAR THICK LIQUIDS BY TSP, AND PUREE FOOD W/O OVERT S/S OF ASPIRATION OR PENETRATION NOTED. AP TRANSFER WAS 2-4 SECONDS FOLLOWED BY SWALLOW RESPONSE WITH FULL LARYNGEAL ELEVATION AND EXCURSION. Pt DEMONSTRATED LABIAL LEAKAGE ON 2/3 TRIALS OF THIN BY TSP, AND COUGH WITH 1/3 TRIALS OF THIN BY TSP. Pt DENTITION WAS POOR AND ORAL PHASE DECREASED MODERATELY, HENCE NO [facility] SOFT TRIALS WERE GIVEN. Pt'S LEVEL OF ALERTNESS AND COOPERATION MAY IMPACT Pt's PO INTAKE. REC TO HOLD FEEDING IF TOO ALTERED. RECOMMEND: 1. PUREE FOOD AND NECTAR THICK LIQUIDS BY TSP ONLY. 2. ASPIRATION PRECAUTIONS, ORAL CARE, AND FEEDER NEEDED. 3. REC TO D/C OG TUBE TO EASE ORAL PHASE AND SWALLOW RESPONSE WITH PO DIET. 4. ST FOR SWALLOW TX ORDERED FOR ONGOING DIET ANALYSIS, SAFE SWALLOW STRATEGIES, AND Pt/CG EDUCATION. YOCASTA ALSTON MS, CCC-JACK SPOOLER TENDER
--- NOTE | 2020-01-29 17:56 | NUR ---
ADMINISTERED 8 UNITS OF HUMALOG FOR BLOOD GLUCOSE OF 317, MEDICATION EDUCATION GIVEN, PT NODDED UNDERSTANDING, PT IS STABLE, CALL LIGHT WITHIN REACH.
--- NOTE | 2020-01-29 19:05 | NUR ---
ENDORSE PT TO NIGHT NURSE FOR CONTINUITY OF CARE, PT IS STABLE
--- NOTE | 2020-01-29 19:06 | NUR ---
RECEIVED BEDSIDE REPORT FROM DAY RN. PT IS AWAKE RESTING COMFORTABLY IN BED. AAOX3-4. ON 2L O2 VIA NC SAT WELL 98% RESPIRATIONS ARE EQUAL AND UNLABORED. LUNG SOUNDS CLEAR AND DIMINISHED AT BASE. DX:ACUTE RESPIRATORY FAILURE AND KINJAL. PT WAS EXTUBATED ON 01/26 PER RN TUBE FEEDING D/C TODAY PT PASSED SWALLOW EVAL NOW ON PUREE/CCHO 60GM WITH NECATOR THICK FLUID. IV ON STEFFANY MIDLINE IVF PER ORDERS. ON CONTACT ISOLATION FOR MRSA/NARES AND SPUTUM. NEW ORDER TO COLLECT C-DIFF. PT HAS RECTAL TUBE DRAINING LIQUID BROWN STOOL. HAS MOMIN CATH DRAINING YELLOW CLEAR URINE. SKIN NON-INTACT. SACRAL R/L BUTTOCKS, SACRAL ULCER, DRESSING IS C/D/I. DIPAK HEEL REDNESS WITH HEEL RAISER ON. PT IS ON WOUND BED. PT SMILING AT NURSE MAKING JOKES. VOICE IS STILL COARSE FROM INTUBATION. POC DISCUSSED WITH PT. ALL NEEDS MET. CALL LIGHT IS WITHIN REACH. WILL CONTINUE TO MONITOR.
[2020-01-29 20:00] VITALS: BP 130/88
--- NOTE | 2020-01-29 21:40 | NUR ---
KEERTHI MAE CALLED ASKING TO SPEAKING WITH PATIENT. ASSISTED PATIENT TO USE THE PHONE. PATIENT IS COMFORTABLE AND IN STABLE CONDITION. CALL LIGHT WITHIN REACH, SAFETY PRECAUTIONS IN PLACE. WILL CONTINUE TO MONITOR.
[2020-01-30] VITALS: BP 134/91
--- NOTE | 2020-01-30 | NUR ---
VITAL SIGNS ARE WITHIN NORMAL LIMITS. FEED PT SOME JUICE TOLERATED WELL. ALL NEEDS MET. SAFETY MEASURES ARE IN PLACE.
[2020-01-30] MEDS: Z-GUARD PASTE TP SCH ×2 (01:08→15:08)
--- NOTE | 2020-01-30 02:00 | NUR ---
MADE ROUNDS. PT IS SLEEPING COMFORTABLY IN BED WITH EYES CLOSED. CHEST RISE AND FALL NOTED. SAT WELL 96% ON RA. CALL LIGHT IS WITHIN REACH. WILL CONTINUE TO MONITOR.
[2020-01-30] MEDS: POTASSIUM CHL 20 MEQ / DEXT 5% 1,000 ML IV SCH ×2 (03:44→16:16)
[2020-01-30 04:00] VITALS: BP 139/93
--- NOTE | 2020-01-30 04:05 | NUR ---
MADE ROUND ON PATIENT. REPOSITION TO ON RIGHT LATERAL. ORAL CARE GIVEN. PATIENT TOLERATED WELL. ADMINISTERED MEDICATION ORDERED. PATIENT IS IN STABLE CONDITION. CALL LIGHT IS WITHIN REACH. WILL CONTINUE TO MONITOR.
[2020-01-30] MEDS: BLOOD GLUCOSE MONITORING 1 DEV DEV FS SCH ×3 (06:15→18:18)
[2020-01-30] MEDS: INSULIN LISPRO SLIDING SCALE 100 UNITS/ML VIAL SUBQ PRN ×3 (06:22→18:23)
[2020-01-30 07:14] LABS: BASOPHILS % (AUTO) 0.3 % (0.0-2.0); HEMATOCRIT 29.7 % (36-52); HEMOGLOBIN 9.6 g/dL (12.0-18.0); LYMPHOCYTES # (AUTO) 1.9 K/uL (2.0-11.5); LYMPHOCYTES % (AUTO) 13.7 % (20.5-51.1); MEAN CORPUSCULAR HEMOGLOBIN 29 pg (27-31); MEAN CORPUSCULAR HGB CONC 33 g/dL (33-37); MEAN CORPUSCULAR VOLUME 89.8 fL (80-94); MONOCYTES # (AUTO) 0.5 K/uL (0.8-1.0); MONOCYTES % (AUTO) 3.8 % (1.7-9.3); NEUTROPHILS # (AUTO) 11.3 K/uL (1.8-7.7); NEUTROPHILS % (AUTO) 82.2 % (42.2-75.2); PLATELET COUNT (AUTO) 98 K/uL (140-450); RED CELL DISTRIBUTION WIDTH 15.7 % (11.6-13.7); WHITE BLOOD COUNT (AUTO) 13.7 K/uL (4.8-10.8)
--- NOTE | 2020-01-30 07:26 | NUR ---
PATIENT IS IN STABLE CONDITION. NO SIGNS OF DISTRESS. ENDORSED CONTINUITY OF CARE TO AM NURSE.
--- NOTE | 2020-01-30 07:26 | NUR ---
RECEIVED REPORT FROM NIGHT NURSE FOR CONTINUITY OF CARE, PT IS STABLE, AAOX2, PT ON ROOM AIR, PT HAS STEFFANY MIDLINE INFUSING D5WITH K 20MEQ AT 75 ML/H, PT HAS A MOMIN CATH, PT HAS A RECTAL TUBE, PT HAS A STAGE 3 SACRAL PRESSURE ULCER WITH DRESSING ON IT, PT HAS BILATERAL HEEL REDNESS, PT HAS LEFT FA SKIN TEAR, INTRODUCE SELF, BED IN LOW POSITION, SAFETY MEASURES IN PLACE, WILL CONTINUE TO MONITOR, CALL LIGHT WITHIN REACH.
[2020-01-30 07:46] LABS: ALBUMIN 2.6 g/dL (3.4-5.0); ANION GAP 16.5 (8-16); CARBON DIOXIDE 21.6 mmol/L (21-32); CREATININE 1.5 mg/dL (0.6-1.3); POTASSIUM 3.1 mmol/L (3.5-5.1); TOTAL BILIRUBIN 0.6 mg/dL (0.0-1.0)
[2020-01-30 08:00] VITALS: BP 143/97
--- NOTE | 2020-01-30 08:15 | NUR ---
GIVEN SCHEDULED MEDS ORDERED. PATIENT TOLERATED WELL. DENIES PAIN OR DISTRESS. CALL LIGHT PLACED WITHIN REACH. WILL CONTINUE TO MONITOR. Addendum: 01/30/20 at 1010 by Suraj Caro RN WRONG PATIENT. [id number]
[2020-01-30] MEDS ORDERED: INSULIN LANTUS 100 UNITS/ML 10 ML VIAL SUBQ SCH ×2 (09:00→14:15)
[2020-01-30] MEDS: POTASSIUM CHLORIDE 20% 40 MEQ/15 ML UDC GT PRN (09:30)
[2020-01-30] MEDS: ZINC SULF 220 MG CAP GT SCH (09:33)
[2020-01-30] MEDS: COLCHICINE 0.6 MG TAB PO SCH ×2 (09:33→20:32)
[2020-01-30] MEDS: VIT-B COMP/VIT-C/FOLIC ACID 1 TAB GT SCH (09:33)
[2020-01-30] MEDS: HYDROCORTISONE NA SUCC 100 MG/2 ML VIAL IV SCH ×2 (09:35→20:32)
[2020-01-30] MEDS: NITROGLYCERIN 2% 1 GM PKT TP SCH (09:36)
[2020-01-30] MEDS: PANTOPRAZOLE 40 MG INJ VIAL IVP SCH (09:37)
--- NOTE | 2020-01-30 09:52 | NUR ---
ADMINISTERED SCHEDULED MEDICATION, POTASSIUM GIVEN POTASSIUM IS 3.1, MEDS CRUSHED AND MIXED WITH APPLE SAUCE, PT ONLY TOOK A FEW SPOONFULS AND THEN REFUSED MEDS, MEDICATION EDUCATION GIVEN, PT TOLERATED OKAY, PT IS STABLE, NO SIGNS OF DISTRESS NOTED, RESPIRATIONS ARE EVEN AND UNLABORED ON ROOM AIR, CALL LIGHT WITHIN REACH.
[2020-01-30] MEDS: VANCOMYCIN 1,000 MG in NACL 0.9% 250 ML IV SCH (10:55)
[2020-01-30 12:00] VITALS: BP 120/70
--- NOTE | 2020-01-30 12:25 | NUR ---
ADMINISTERED 4 UNITS OF HUMALOG FOR BLOOD GLUCOSE OF 215, MEDICATION EDUCATION GIVEN, PT NODDED UNDERSTANDING, PT TOLERATED WELL, PT IS STABLE, CALL LIGHT WITHIN REACH.
--- NOTE | 2020-01-30 14:50 | NUR ---
ADMINISTERED SCHEDULED MEDICATION, MEDICATION EDUCATION GIVEN, PT NODDED UNDERSTANDING, PT IS STABLE, CALL LIGHT WITHIN REACH.
[2020-01-30] MEDS: THERAHONEY GEL 42.5 GM TP SCH (15:07)
[2020-01-30] MEDS: FOAM DRESSING TP SCH (15:07)
--- NOTE | 2020-01-30 15:40 | NUR ---
01/30/20 RD FOLLOW UP COMPLETED PLEASE REFER TO NUTRITION ASSESSMENT UNDER CARE ACTIVITY FOR ESTIMATED NUTRITIONAL NEEDS. 1. CONTINUE PUREE CCHO 60GM WITH NECTAR THICK LIQUIDS TOLERATED 2. RECOMMEND GLUCERNA BID WITH NECTAR THICK LIQUIDS 3. PROVIDE ASSISTANCE WITH MEALS 4. RD TO FOLLOW-UP 2-3 DAYS, HIGH RISK CALVIN JOHNSON RD
[2020-01-30 16:37] VITALS: BP 139/101
--- NOTE | 2020-01-30 17:00 | NUR ---
PT RESTING IN BED, NO SIGNS OF DISTRESS NOTED, RESPIRATIONS ARE EVEN AND UNLABORED ON 2L NASAL CANNULA, BED IN LOW POSITION, SAFETY MEASURES IN PLACE, CALL LIGHT WITHIN REACH.
--- NOTE | 2020-01-30 19:20 | NUR ---
ENDORSE PT TO NIGHT NURSE FOR CONTINUITY OF CARE, PT IS STABLE
--- NOTE | 2020-01-30 19:21 | NUR ---
RECEIVED BEDSIDE REPORT FROM DAY RN. PT IS AWAKE RESTING COMFORTABLY IN BED. AAOX3-4. ON 3L O2 VIA NC SAT WELL 98% RESPIRATIONS ARE EQUAL AND UNLABORED. LUNG SOUNDS CLEAR AND DIMINISHED AT BASE. DX:ACUTE RESPIRATORY FAILURE AND KINJAL. PT WAS EXTUBATED ON 01/26 PER RN TUBE FEEDING D/C TODAY PT PASSED SWALLOW EVAL NOW ON PUREE/CCHO 60GM WITH NECATOR THICK FLUID. IV ON STEFFANY MIDLINE IVF PER ORDERS. ON CONTACT ISOLATION FOR MRSA/NARES AND SPUTUM. NEW ORDER TO COLLECT C-DIFF. PT HAS RECTAL TUBE DRAINING LIQUID BROWN STOOL. HAS MOMIN CATH DRAINING YELLOW CLEAR URINE. SKIN NON-INTACT. SACRAL R/L BUTTOCKS, SACRAL ULCER, DRESSING IS C/D/I. DIPAK HEEL REDNESS WITH HEEL RAISER ON. PT IS ON WOUND BED. PT SMILING AT NURSE MAKING JOKES. VOICE IS STILL COARSE FROM INTUBATION. POC DISCUSSED WITH PT. ALL NEEDS MET. CALL LIGHT IS WITHIN REACH. WILL CONTINUE TO MONITOR.
[2020-01-30 20:00] VITALS: BP 125/89
--- NOTE | 2020-01-30 20:32 | NUR ---
VSS. CHAS MEDICATIONS GIVEN PER ORDERS. MED EDUCATION GIVEN. ALL SAFETY MEASURES ARE IN PLACE. WILL ROUND FREQUENTLY.
--- NOTE | 2020-01-30 22:30 | NUR ---
PT IS SLEEPING COMFORTABLY IN BED. NO S/S OF DISTRESS. CALL LIGHT IS WITHIN REACH.
[2020-01-31] VITALS: BP 115/78
--- NOTE | 2020-01-31 | NUR ---
VITAL SIGNS ARE WITHIN NORMAL LIMITS. ALL NEEDS MET. CALL LIGHT IS WITHIN REACH.
[2020-01-31] MEDS: BLOOD GLUCOSE MONITORING 1 DEV DEV FS SCH ×4 (00:38→18:09)
[2020-01-31] MEDS: Z-GUARD PASTE TP SCH ×2 (00:38→13:36)
--- NOTE | 2020-01-31 02:48 | NUR ---
PT IS SLEEPING COMFORTABLY IN BED WITH EYES CLOSED. CHEST RISE AND FALL NOTED. CALL LIGHT IS WITHIN REACH.
[2020-01-31] MEDS: POTASSIUM CHL 20 MEQ / DEXT 5% 1,000 ML IV SCH ×3 (03:03→22:32)
[2020-01-31 04:00] VITALS: BP 127/92
--- NOTE | 2020-01-31 04:00 | NUR ---
VITAL SIGNS ARE WITHIN NORMAL LIMITS. GAVE PT WATER TOLERATED WELL. ALL NEEDS MET. SAFETY MEASURES ARE IN PLACE.
--- NOTE | 2020-01-31 06:10 | NUR ---
BG 147 NO COVERAGE NEEDED. PT RESTING COMFORTABLY IN BED. NO S/S OF DISTRESS. WILL CONTINUE TO MONITOR.
--- NOTE | 2020-01-31 07:45 | NUR ---
GAVE BEDSIDE REPORT TO DAY RN. PT ENDORSED IN STABLE CONDITION
--- NOTE | 2020-01-31 07:46 | NUR ---
RECEIVED REPORT FROM MOLASSES COLORING OPERATOR NURSE TODD-DANNI. PT RESTING IN BED, AOX2-CONFUSED, ON 3L/NC- DIMINISHED LUNG SOUNDS, WITH RIGHT UPPER ARM MIDLINE DOUBLE LUMEN RUNNING D5/KCL @ 100ML/HR. MOMIN AND RECTAL BAG IN PLACE. RIGHT/LEFT STAGE 3 PRESSURE ULCER COVERED IN FOAM DRESSING, SKIN TEAR ON LEFT UPPER ARM, REDNESS ON BOTH RIGHT AND LEFT- WITH LEFT DTI. ON CONTACT PRECAUTIONS FOR MRSA NARES/SPUTUM AND BLOOD. DISCUSSED PLAN OF CARE HOWEVER PT IS CONFUSED. CALL LIGHT WITHIN REACH. NO S/S OF RESPIRATORY DISTRESS OR DISCOMFORT NOTED AT THIS TIME. WILL CONTINUE TO MONITOR.
[2020-01-31 08:00] VITALS: BP 125/92
[2020-01-31 08:57] LABS: BASOPHILS % (AUTO) 0.2 % (0.0-2.0); HEMOGLOBIN 9.6 g/dL (12.0-18.0); LYMPHOCYTES # (AUTO) 2.2 K/uL (2.0-11.5); LYMPHOCYTES % (AUTO) 14.5 % (20.5-51.1); MEAN CORPUSCULAR HEMOGLOBIN 29 pg (27-31); MEAN CORPUSCULAR HGB CONC 32 g/dL (33-37); MEAN CORPUSCULAR VOLUME 89.9 fL (80-94); MONOCYTES # (AUTO) 0.5 K/uL (0.8-1.0); MONOCYTES % (AUTO) 3.3 % (1.7-9.3); NEUTROPHILS # (AUTO) 12.2 K/uL (1.8-7.7); PLATELET COUNT (AUTO) 91 K/uL (140-450); RED BLOOD CELL COUNT(AUTO) 3.33 MIL/uL (4.20-6.10); RED CELL DISTRIBUTION WIDTH 16.1 % (11.6-13.7); WHITE BLOOD COUNT (AUTO) 14.8 K/uL (4.8-10.8)
[2020-01-31] MEDS: INSULIN LANTUS 100 UNITS/ML 10 ML VIAL SUBQ SCH (09:00)
[2020-01-31] MEDS: VIT-B COMP/VIT-C/FOLIC ACID 1 TAB GT SCH (09:37)
[2020-01-31] MEDS: HYDROCORTISONE NA SUCC 100 MG/2 ML VIAL IV SCH ×2 (09:37→22:20)
[2020-01-31] MEDS: PANTOPRAZOLE 40 MG INJ VIAL IVP SCH (09:37)
[2020-01-31] MEDS: ZINC SULF 220 MG CAP GT SCH (09:38)
[2020-01-31] MEDS: NITROGLYCERIN 2% 1 GM PKT TP SCH (09:38)
[2020-01-31] MEDS: COLCHICINE 0.6 MG TAB PO SCH ×2 (09:38→22:21)
--- NOTE | 2020-01-31 09:38 | NUR ---
SCHEDULED MEDICATIONS GIVEN AND TOLERATED WELL. CRUSHED WITH APPLE SAUCE AND SWALLOWED WELL. CALL LIGHT WITHIN REACH. NO S/S OF RESPIRATORY DISTRESS OR DISCOMFORT NOTED AT THIS TIME. WILL CONTINUE TO MONITOR.
[2020-01-31 09:43] LABS: ALBUMIN 2.2 g/dL (3.4-5.0); ANION GAP 14.7 (8-16); CARBON DIOXIDE 23.6 mmol/L (21-32); CREATININE 1.6 mg/dL (0.6-1.3); POTASSIUM 3.3 mmol/L (3.5-5.1); TOTAL BILIRUBIN 0.6 mg/dL (0.0-1.0)
[2020-01-31] MEDS: VANCOMYCIN 1,000 MG in NACL 0.9% 250 ML IV SCH (10:27)
--- NOTE | 2020-01-31 10:27 | NUR ---
VANCOCIN GIVEN AND TOLERATED WELL. VANCO TROPH SCHEDULED FOR 02/01/2020 @ 0900. CALL LIGHT WITHIN REACH. NO S/S OF RESPIRATORY DISTRESS OR DISCOMFORT NOTED AT THIS TIME. WILL CONTINUE TO MONITOR.
--- NOTE | 2020-01-31 11:30 | NUR ---
FOAM DRESSING CHANGED ON SACRAL AREA AND THERAHONEY APPLIED. PT TOLERATED WELL. CALL LIGHT WITHIN REACH. NO S/S OF RESPIRATORY DISTRESS OR DISCOMFORT NOTED AT THIS TIME. WILL CONTINUE TO MONITOR.
--- NOTE | 2020-01-31 12:00 | NUR ---
BLOOD GLUCOSE 213- WILL ADMINISTER INSULIN COVERAGE.
[2020-01-31] MEDS: INSULIN LISPRO SLIDING SCALE 100 UNITS/ML VIAL SUBQ PRN ×2 (13:34→18:11)
--- NOTE | 2020-01-31 13:34 | NUR ---
INSULIN COVERAGE GIVEN AND TOLERATED WELL. CALL LIGHT WITHIN REACH. NO S/S OF RESPIRATORY DISTRESS OR DISCOMFORT NOTED AT THIS TIME. WILL CONTINUE TO MONITOR.
[2020-01-31] MEDS: THERAHONEY GEL 42.5 GM TP SCH (13:35)
[2020-01-31] MEDS: FOAM DRESSING TP SCH (13:35)
[2020-01-31] MEDS ORDERED: KCL 20 MEQ/WATER INJ PREMIX 100 ML IV SCH (15:30)
--- NOTE | 2020-01-31 15:48 | NUR ---
SCHEDULED MEDICATION KCL GIVEN AND TOLERATED WELL. CALL LIGHT WITHIN REACH. NO S/S OF RESPIRATORY DISTRESS OR DISCOMFORT NOTED AT THIS TIME. WILL CONTINUE TO MONITOR.
[2020-01-31 16:00] VITALS: BP 123/82
--- NOTE | 2020-01-31 18:00 | NUR ---
BLOOD GLUCOSE 225- WILL ADMINISTER INSULIN COVERAGE. CALL LIGHT WITHIN REACH. NO S/S OF RESPIRATORY DISTRESS OR DISCOMFORT NOTED AT THIS TIME. WILL CONTINUE TO MONITOR.
--- NOTE | 2020-01-31 18:11 | NUR ---
INSULIN COVERAGE GIVEN AND TOLERATED WELL. CALL LIGHT WITHIN REACH. NO S/S OF RESPIRATORY DISTRESS OR DISCOMFORT NOTED AT THIS TIME. WILL CONTINUE TO MONITOR.
[2020-01-31 20:00] VITALS: BP 120/73
--- NOTE | 2020-01-31 20:00 | NUR ---
RECEIVED REPORT FROM ESTER RAZO FOR CONTINUITY OF CARE. PATIENT AWAKE, ALERT AND ORIENTED X 2 MUMBLING, ABLE TO MAKE NEEDS KNOWN .NO S/S OF RESP DISTRESS NOTED, MID LINE ON RIGHT UPPER ARM INTACT AND PATENT IVF INFUSING WELL. PT BED BOUND WITH BILATERAL HEEL PROTECTORS , MOMIN CATH DRAIN CLOUDY URINE AND RECTAL BAG WITH SONE STOOL. PLAN OF CARE DISCUSSED WITH THE PATIENT VITALS STABLE WILL CONTINUE TO MONITOR.
--- NOTE | 2020-01-31 20:40 | NUR ---
REPORT GIVEN TO MEDICAL GENETICIST NURSE JUDY- RN FOR CONTINUITY OF CARE. PT STABLE AT THIS TIME.
--- NOTE | 2020-01-31 22:00 | NUR ---
DUE MEDS CRUSHED AND MIXED WITH APPLE SAUCE AND GIVEN TOLERATED WELL. NO DISCOMFORT NOTED, REPOSITIONED HIM WILL CONTINUE TO MONITOR.
[2020-02-01] VITALS: BP 102/71
--- NOTE | 2020-02-01 | NUR ---
SLEEPING BUT EASILY AWAKE REQUESTING WATER , THICKENER DRINK GIVEN TOLERATED WELL CHECKED BLOOD SUGAR 227 SLIDING SCALE COVERAGE 4 UNITS INSULIN SUB Q GIVEN. WILL CONTINUE TO MONITOR.
[2020-02-01] MEDS: BLOOD GLUCOSE MONITORING 1 DEV DEV FS SCH ×4 (00:46→17:34)
[2020-02-01] MEDS: INSULIN LISPRO SLIDING SCALE 100 UNITS/ML VIAL SUBQ PRN ×3 (00:48→17:34)
[2020-02-01] MEDS: Z-GUARD PASTE TP SCH ×2 (01:00→14:15)
[2020-02-01 04:00] VITALS: BP 124/65
--- NOTE | 2020-02-01 04:00 | NUR ---
SLEEPING COMFORTABLE VITALS STABLE WILL CONTINUE TO MONITOR
--- NOTE | 2020-02-01 06:29 | NUR ---
CHECKED BLOOD SUGAR 239 SLIDING SCALE COVERAGE 4 UNITS HUMALOG GIVEN ORDERED. SAFETY MAINTAINED CALL LIGHT IN REACH. STABLE CONDITION AT THIS TIME.
[2020-02-01 08:00] VITALS: BP 125/86
--- NOTE | 2020-02-01 09:00 | NUR ---
RECEIVED BEDSIDE SHIFT REPORT FROM CYLINDER HONER NURSE FOR CONTINUATION OF CARE.
[2020-02-01] MEDS: VIT-B COMP/VIT-C/FOLIC ACID 1 TAB GT SCH (10:26)
[2020-02-01] MEDS: ZINC SULF 220 MG CAP GT SCH (10:27)
[2020-02-01] MEDS: COLCHICINE 0.6 MG TAB PO SCH ×2 (10:27→21:59)
[2020-02-01] MEDS: HYDROCORTISONE NA SUCC 100 MG/2 ML VIAL IV SCH ×2 (10:27→22:05)
[2020-02-01] MEDS: NITROGLYCERIN 2% 1 GM PKT TP SCH (10:28)
[2020-02-01] MEDS: INSULIN LANTUS 100 UNITS/ML 10 ML VIAL SUBQ SCH (10:28)
[2020-02-01] MEDS: PANTOPRAZOLE 40 MG INJ VIAL IVP SCH (10:28)
[2020-02-01] MEDS: POTASSIUM CHL 20 MEQ / DEXT 5% 1,000 ML IV SCH ×2 (10:38→18:16)
--- NOTE | 2020-02-01 11:00 | NUR ---
TOLERATED MEDS WELL. LETHARGIC, MOMIN CATHETER EMPTIED. PATIENT IS CONFUSED. WILL CONTINUE TO MONITOR.
[2020-02-01 12:00] VITALS: BP 126/73
[2020-02-01] MEDS ORDERED: ALTEPLASE 2 MG VIAL MC SCH (12:40)
--- NOTE | 2020-02-01 13:00 | NUR ---
ALTEPLASE ORDERED TO CLEAR MIDLINE TO ALLOW FOR BLOOD DRAW.
[2020-02-01] MEDS: VANCOMYCIN 1,000 MG in NACL 0.9% 250 ML IV SCH (13:57)
--- NOTE | 2020-02-01 14:00 | NUR ---
ALTEPLASE ADMINISTERED TO CLEAR MIDLINE TO ALLOW BLOOD DRAW FROM MIDLINE.
[2020-02-01] MEDS: THERAHONEY GEL 42.5 GM TP SCH (14:15)
[2020-02-01] MEDS: FOAM DRESSING TP SCH (14:15)
--- NOTE | 2020-02-01 15:00 | NUR ---
MIDLINE DRAWING BLOOD WELL, LAB MADE AWARE, THEY WILL COME AND DRAW LABS
[2020-02-01 16:00] VITALS: BP 119/75
[2020-02-01 17:09] LABS: ANION GAP 17.7 (8-16); CARBON DIOXIDE 17.6 mmol/L (21-32); CREATININE 1.8 mg/dL (0.6-1.3); POTASSIUM 3.3 mmol/L (3.5-5.1)
--- NOTE | 2020-02-01 18:00 | NUR ---
PATIENT IS RESTING IN BED, RUNNING VANCO, LABS CAME BACK.
--- NOTE | 2020-02-01 19:20 | NUR ---
BEDSIDE SHIFT REPORT GIVEN TO CONSTRUCTION REP NURSE FOR CONTINUATION OF CARE.
--- NOTE | 2020-02-01 20:00 | NUR ---
RECEIVED REPORT FROM DAY SHIFT RN SERA FOR CONTINUITY OF CARE. PATIENT SLEEPING BUT EASILY AWAKE, SPEECH IS MUMBLING BUT ABLE TO MAKE NEEDS KNOWN. NO S/S OF RESP DISTRESS NOTED ON O2 3/NC. PICC LINE RT UPPER ARM INTACT AND PATENT. PT BEDBOUND, DRY SKIN NOTED HEEL PROTECTOR ON. PLAN OF CARE DISCUSSED WITH THE PATIENT VITALS STABLE WILL CONTINUE TO MONITOR.
--- NOTE | 2020-02-01 21:15 | NUR ---
PT RESTING COMFORTABLY W/ NO S/S OF DISTRESS AT THIS TIME
[2020-02-01] MEDS ORDERED: CALCIUM GLUCONATE 10% 1,000 MG in NACL 0.9% 50 ML IV ONE (21:35)
[2020-02-01] MEDS ORDERED: KCL 20 MEQ/WATER INJ PREMIX 200 ML IV ONE (21:35)
--- NOTE | 2020-02-01 22:00 | NUR ---
DUE MEDS GIVEN TOLERATED WELL. UNABLE TO GIVE CALCIUM GLUCONATE BECAUSE OF NO PHARMACY AVAILABLE. WILL NOTIFY MD. PICC LINE DRESSING CHANGE ,INTACT AND PATENT AT THIS TIME.
[2020-02-01 23:20] VITALS: BP 89/57
--- NOTE | 2020-02-02 | NUR ---
SPOKE WITH MICHAEL PHARMACIST, REGARDING THE CALCIUM IV ORDER SINCE IT IS NOT EMERGENCY WILL ADMINISTER IN THE MORNING. VITALS STABLE AT THIS TIME
[2020-02-02] MEDS: BLOOD GLUCOSE MONITORING 1 DEV DEV FS SCH ×4 (00:35→18:17)
[2020-02-02] MEDS: Z-GUARD PASTE TP SCH ×2 (01:53→13:29)
--- NOTE | 2020-02-02 02:48 | NUR ---
SLEEPING COMFORTABLE NO DISTRESS NOTED. WILL CONTINUE TO MONITOR. Addendum: 02/03/20 at 1612 by Kalyani Valle CM RECEIVED DISCHARGE ORDER FROM TO DISCHARGE BACK TO [facility] WILL FOLLOW UP. Addendum: 02/03/20 at 1649 by Kalyani Valle CM FAXED PATIENTS CLINICALS TO [facility] Addendum: 02/04/20 at 1201 by Kalyani Valle CM [facility] IS ABLE TO ACCEPT PATIENT GOING TO ROOM 224 B. WILL SET UP TRANSPORTATION Addendum: 02/04/20 at 1317 by Kalyani Valle CM RECEIVED AUTH FOR TRANSPORTATION [id number], SET UP TRANSPORTATION FOR 3:00 PM WITH [facility]. NOTIFIED [facility] AND DANNI
[2020-02-02 04:00] VITALS: BP 105/63
[2020-02-02] MEDS: POTASSIUM CHL 20 MEQ / DEXT 5% 1,000 ML IV SCH (05:29)
[2020-02-02 06:40] LABS: BASOPHILS % (AUTO) 0.1 % (0.0-2.0); HEMATOCRIT 32.4 % (36-52); HEMOGLOBIN 10.4 g/dL (12.0-18.0); LYMPHOCYTES # (AUTO) 1.4 K/uL (2.0-11.5); LYMPHOCYTES % (AUTO) 10.8 % (20.5-51.1); MEAN CORPUSCULAR HEMOGLOBIN 29 pg (27-31); MEAN CORPUSCULAR HGB CONC 32 g/dL (33-37); MONOCYTES # (AUTO) 0.3 K/uL (0.8-1.0); MONOCYTES % (AUTO) 2.5 % (1.7-9.3); NEUTROPHILS # (AUTO) 11.4 K/uL (1.8-7.7); NEUTROPHILS % (AUTO) 86.6 % (42.2-75.2); PLATELET COUNT (AUTO) 97 K/uL (140-450); RED CELL DISTRIBUTION WIDTH 16.4 % (11.6-13.7); WHITE BLOOD COUNT (AUTO) 13.1 K/uL (4.8-10.8)
[2020-02-02 06:47] LABS: PHOSPHORUS 3.3 mg/dL (2.5-4.9)
[2020-02-02 06:52] LABS: ANION GAP 16.3 (8-16); CARBON DIOXIDE 21.9 mmol/L (21-32); CREATININE 2.1 mg/dL (0.6-1.3); POTASSIUM 4.2 mmol/L (3.5-5.1)
[2020-02-02] MEDS ORDERED: CALCIUM GLUCONATE 10% 1,000 MG in NACL 0.9% 50 ML IV SCH (07:30)
--- NOTE | 2020-02-02 07:48 | NUR ---
RECEIVED BEDSIDE REPORT FROM AUTOMATIC BEADING LATHE OPERATOR NURSE, PATIENT IS AAOX2, DROWSY NOTED, ABLE TO FOLLOW COMMANDS AND MAKE NEEDS KNOWN SOMETIMES, VSS, DENIES PAIN, NO S/S OF DISTRESS, DIMINISHED LUNG SOUNDS DIPAK. ON O2 AT 2L VIA NC, ST ON TELE MONITOR, ON CCHO 60GM DIET, MOMIN CATHETER IN PLACE WITH CLEAR QUOC URINE VIA GRAVITY, SEVERE WEAKNESS TO ALL EXTREMITIES, SKIN IS WARM AND DRY TO TOUCH, OPEN WOUND PRESENT (SEE WOUND ASSESSMENT), PICC LINE TO RIGHT UPPER ARM, PATENT AND RUNNING D5 +KCL AT 100ML/HR, EXPLAINED POC TO PATIENT, PATIENT VERBALIZED UNDERSTANDING, HOB ELEVATED 30 DEGREES, SAFETY MEASURES IN PLACE, CALL LIGHT WITHIN REACH, WILL CONTINUE TO MONITOR.
--- NOTE | 2020-02-02 07:48 | NUR ---
RECEIVED A CRITICAL LAB FROM LAB BUN/CREATININE 75/9.[address] SOLIMAN AND ENDORSE THE CARE TO DAY SHIFT RN
[2020-02-02 08:00] VITALS: BP 122/90
--- NOTE | 2020-02-02 08:30 | NUR ---
SCHEDULED MEDICATION GIVEN, PATIENT IS ABLE TO TAKE CRASHED PILLS WITH AC, ATE 10% OF BREAKFAST WITH 1:1 FEEDER.
[2020-02-02] MEDS ORDERED: VANCOMYCIN PER PHARMACY MC PRN (09:25)
[2020-02-02] MEDS: HYDROCORTISONE NA SUCC 100 MG/2 ML VIAL IV SCH ×2 (09:41→20:37)
[2020-02-02] MEDS: PANTOPRAZOLE 40 MG INJ VIAL IVP SCH (09:41)
[2020-02-02] MEDS: INSULIN LANTUS 100 UNITS/ML 10 ML VIAL SUBQ SCH (09:43)
[2020-02-02] MEDS: COLCHICINE 0.6 MG TAB PO SCH ×2 (09:44→20:36)
[2020-02-02] MEDS: ZINC SULF 220 MG CAP GT SCH (09:44)
[2020-02-02] MEDS: NITROGLYCERIN 2% 1 GM PKT TP SCH (09:45)
[2020-02-02] MEDS: VIT-B COMP/VIT-C/FOLIC ACID 1 TAB GT SCH (09:45)
[2020-02-02] MEDS: VANCOMYCIN 1,000 MG in NACL 0.9% 250 ML IV SCH (09:46)
--- NOTE | 2020-02-02 10:55 | NUR ---
PATIENT VERBALIZED PAIN. CALL MD FOR ORDERS. NO NEW ORDERS FOR PAIN. Addendum: 02/03/20 at 0338 by Adithya Perez RN WRONG TME.
--- NOTE | 2020-02-02 11:25 | NUR ---
DR. DONIS CAME IN TO SEE PATIENT AT BEDSIDE, UPDATED PATIENT'S CONDITION, WILL FOLLOW UP WITH NEW ORDERS.
[2020-02-02 12:00] VITALS: BP 128/72
[2020-02-02] MEDS: NACL 0.45% 1,000 ML IV SCH (12:35)
[2020-02-02] MEDS: INSULIN LISPRO SLIDING SCALE 100 UNITS/ML VIAL SUBQ PRN (12:43)
[2020-02-02] MEDS: FOAM DRESSING TP SCH (13:29)
[2020-02-02] MEDS: THERAHONEY GEL 42.5 GM TP SCH (13:29)
--- NOTE | 2020-02-02 15:29 | NUR ---
02/02/20 RD FOLLOW UP COMPLETED PLEASE REFER TO NUTRITION ASSESSMENT UNDER CARE ACTIVITY FOR ESTIMATED NUTRITIONAL NEEDS. 1. CONTINUE PUREE CCHO 60GM WITH NECTAR THICK LIQUIDS TOLERATED 2. RECOMMEND GREGG UNFLAVORED BID MIXED IN ENTREE FOOD ITEMS FOR WOUND HEALING 3. PROVIDE ASSISTANCE WITH MEALS 4. ENCOURAGE INCREASING PO INTAKE 5. RD TO FOLLOW-UP 2-3 DAYS, HIGH RISK CALVIN JOHNSON, RD
[2020-02-02 16:00] VITALS: BP 119/73
--- NOTE | 2020-02-02 19:14 | NUR ---
REPORT GIVEN TO MANAGER SOCIAL SERVICES NURSE AT BEDSIDE FOR CONTINUE OF CARE, PT IS IN STABLE CONDITION AT THIS TIME.
--- NOTE | 2020-02-02 19:16 | NUR ---
RECEIVED CONTINUITY OF CARE FROM AM NURSE. PATIENT IN STABLE CONDITION. O2 2L VIA NC APPLIED AAOX3. CALL LIGHT WITHIN REACH. SAFETY PRECAUTIONS IN PLACE. WILL CONTINUE TO MONITOR.
[2020-02-02 20:00] VITALS: BP 124/67
--- NOTE | 2020-02-02 21:15 | NUR ---
MADE ROUND ON PATIENT. ADMINISTERED MEDICATION ORDERED. FEED PATIENT A FEW BITE OF HIS DINNER. O2 2L VIA NC IN PLACE. CALL LIGHT WITHIN REACH. SAFETY PRECAUTIONS IN PLACE. WILL CONTINUE TO MONITOR.
--- NOTE | 2020-02-02 22:55 | NUR ---
PATIENT VERBALIZED PAIN. CALL MD FOR PAIN ORDERS. NO NEW ORDERS FOR PAIN.
[2020-02-03] VITALS: BP 135/95
--- NOTE | 2020-02-03 00:45 | NUR ---
ASSESSED FSBS TO BE 113, NO COVERAGE NEEDED. PATIENT HAS LARGE BM. WOUND CARE PERFORMED.
[2020-02-03] MEDS: NACL 0.45% 1,000 ML IV SCH ×2 (00:50→06:38)
[2020-02-03] MEDS: Z-GUARD PASTE TP SCH ×3 (01:00→23:57)
--- NOTE | 2020-02-03 02:55 | NUR ---
MADE ROUND ON PATIENT. PATIENT IS IN STABLE CONDITION BUT VERBALIZED HE IS NOT ABLE TO REST. NURSE EDUCATED PATIENT TO RELAX AND VISUAL A CALM SCENERY TO RELAX HIM. CALL LIGHT WITHIN REACH. SAFETY PRECAUTIONS IN PLACE. WILL CONTINUE TO MONITOR.
[2020-02-03 04:00] VITALS: BP 140/85
--- NOTE | 2020-02-03 04:50 | NUR ---
MADE ROUND ON PATIENT. PATIENT IS IN STABLE CONDITION. CALL LIGHT WITHIN REACH. SAFETY PRECAUTIONS IN PLACE. WILL CONTINUE TO MONITOR.
[2020-02-03] MEDS: BLOOD GLUCOSE MONITORING 1 DEV DEV FS SCH ×5 (06:33→23:56)
--- NOTE | 2020-02-03 07:20 | NUR ---
ENDORSED CARE TO AM SHIFT. PATIENT IS IN STABLE CONDITION.
--- NOTE | 2020-02-03 07:27 | NUR ---
RECEIVED PATIENT FROM ATHLETIC TEAM PHYSICIAN NURSE FOR CONTINUITY OF CARE. PATIENT IS AAOX1. RESPIRATIONS EVEN AND UNLABORED, ON 3L O2 VIA NC. NO SIGNS OF DISTRESS NOTED. VISIBLE CHEST RISE AND FALL NOTED. ON TELE MONITORING. SKIN WARM AND DRY. SACRAL WOUND. DRESSING DRY AND INTACT. IV MIDLINE IN RA, RUNNING 1/2NS AT 5 ML/HR. IVF RUNNING WELL. MOMIN IN PLACE. CLEAR YELLOW URINE NOTED IN THE MOMIN BAG. BEDREST. ON CONTACT ISOLATION FOR MRSA IN THE URINE AND BLOOD. FALL PRECAUTION IN PLACE. BED IN LOW POSITION. CALL LIGHT IS WITHIN REACH. WILL CONTINUE TO MONITOR
[2020-02-03 07:30] LABS: BASOPHILS # (AUTO) 0.2 K/uL (0.00-0.22); BASOPHILS % (AUTO) 1.3 % (0.0-2.0); EOSINOPHILS % (AUTO) 0.1 % (0.0-4.0); HEMATOCRIT 30.8 % (36-52); HEMOGLOBIN 9.8 g/dL (12.0-18.0); LYMPHOCYTES # (AUTO) 3.5 K/uL (2.0-11.5); LYMPHOCYTES % (AUTO) 21.4 % (20.5-51.1); MEAN CORPUSCULAR HEMOGLOBIN 29 pg (27-31); MEAN CORPUSCULAR HGB CONC 32 g/dL (33-37); MEAN CORPUSCULAR VOLUME 91.1 fL (80-94); MONOCYTES # (AUTO) 0.6 K/uL (0.8-1.0); MONOCYTES % (AUTO) 3.9 % (1.7-9.3); NEUTROPHILS # (AUTO) 11.8 K/uL (1.8-7.7); NEUTROPHILS % (AUTO) 73.3 % (42.2-75.2); PLATELET COUNT (AUTO) 89 K/uL (140-450); RED BLOOD CELL COUNT(AUTO) 3.38 MIL/uL (4.20-6.10); WHITE BLOOD COUNT (AUTO) 16.2 K/uL (4.8-10.8)
[2020-02-03 07:57] LABS: CARBON DIOXIDE 21.4 mmol/L (21-32); CREATININE 1.8 mg/dL (0.6-1.3); POTASSIUM 3.4 mmol/L (3.5-5.1)
[2020-02-03 08:00] VITALS: BP 118/86
[2020-02-03] MEDS: INSULIN LANTUS 100 UNITS/ML 10 ML VIAL SUBQ SCH (09:00)
[2020-02-03] MEDS: ZINC SULF 220 MG CAP GT SCH (09:28)
[2020-02-03] MEDS: COLCHICINE 0.6 MG TAB PO SCH ×2 (09:28→20:12)
[2020-02-03] MEDS: PANTOPRAZOLE 40 MG INJ VIAL IVP SCH (09:28)
[2020-02-03] MEDS: VIT-B COMP/VIT-C/FOLIC ACID 1 TAB GT SCH (09:28)
[2020-02-03] MEDS: NITROGLYCERIN 2% 1 GM PKT TP SCH (09:29)
[2020-02-03] MEDS: HYDROCORTISONE NA SUCC 100 MG/2 ML VIAL IV SCH ×2 (09:33→20:22)
--- NOTE | 2020-02-03 09:35 | NUR ---
GIVEN MORNING MEDICATIONS PO, CRUSHED AND MIXED WITH APPLESAUCE. PROTONIX IVP. SOLUCORF IVP. GIVEN EDUCATION MEDICATION. HELD LANTUS. BS IS 89. PATIENT TOLERATED WELL.
[2020-02-03] MEDS: DEXTROSE 5% 1,000 ML IV SCH ×2 (10:40→23:45)
--- NOTE | 2020-02-03 10:42 | NUR ---
HUNG D5 AT A RATE OF 75 ML/HR PER MD ORDER.
--- NOTE | 2020-02-03 10:50 | NUR ---
CHANGED AND REPOSITIONED PATIENT TO LEFT-SIDE LYING. PATIENT TOLERATED WELL. WOUND DRESSING CHANGED. APPLIED THERAHONEY GEL AND Z-GUARD. OPTIFOAM DRESSING PLACED.
--- NOTE | 2020-02-03 11:01 | NUR ---
IGORO TROUGH: 20.5. PHARMACY AWARE. DALE STATED SHE WILL CHANGE THE DOSE TO 720MG. Addendum: 02/03/20 at 1232 by Princess Shannan Bender RN 750 MG NOT 720 MG
--- NOTE | 2020-02-03 11:46 | NUR ---
PER PHARMACY, NO VANCO DOSE MORNING SHIFT, IT WILL BE MEMBERSHIP SALES ADVISOR THAT IS 750 MG. WILL ENDORSE TO PM NURSE.
[2020-02-03 12:00] VITALS: BP 102/75
--- NOTE | 2020-02-03 12:00 | NUR ---
FINGERSTICK BLOOD SUGAR CHECKED: 113. NO INSULIN COVERAGE NEEDED. PATIENT TOLERATED WELL.
[2020-02-03] MEDS: THERAHONEY GEL 42.5 GM TP SCH (12:15)
[2020-02-03] MEDS: FOAM DRESSING TP SCH (12:15)
[2020-02-03] MEDS: POTASSIUM CHLORIDE 20% 40 MEQ/15 ML UDC GT PRN (13:00)
--- NOTE | 2020-02-03 13:00 | NUR ---
GIVEN 40 MEQ POTASSIUM CHLORIDE FOR K LEVEL OF 3.4. MIXED WITH APPLESAUCE. PATIENT TOLERATED WELL. WILL CONTINUE TO MONITOR.
--- NOTE | 2020-02-03 13:10 | NUR ---
ASSISTED FEEDING LUNCH TO PATIENT. HE ATE ABOUT 40% OF HIS LUNCH.
--- NOTE | 2020-02-03 13:48 | NUR ---
GIVEN UPDATE TO DAUGHTERS RYAN AND FELICIANO. DISCUSSED DR. ARAUJO'S PLAN - [facility]PH[facility] [place].
--- NOTE | 2020-02-03 15:46 | NUR ---
DR. LE AND DR. RITCHIE MADE ROUNDS. PLAN IS PATIENT TO BE TRANSFERRED TO [facility], [facility]. [facility] REFUSED PATIENT.
[2020-02-03 16:00] VITALS: BP 128/84
--- NOTE | 2020-02-03 16:39 | NUR ---
FINGERSTICK BLOOD SUGAR CHECKED: 168. WILL INSULIN COVERAGE NEEDED
[2020-02-03] MEDS: INSULIN LISPRO SLIDING SCALE 100 UNITS/ML VIAL SUBQ PRN (17:49)
--- NOTE | 2020-02-03 17:50 | NUR ---
GIVEN 2 UNITS OF HUMALOG SUBQ FOR BS OF 168. PATIENT TOLERATED WELL. GIVEN MEDICATION EDUCATION. BED IN LOW POSITION. CALL LIGHT IS WITHIN REACH. WILL CONTINUE TO MONITOR
--- NOTE | 2020-02-03 19:27 | NUR ---
ENDORSED PATIENT TO THE REPORTING DEVELOPER NURSE. PATIENT IS IN STABLE CONDITION. ENDORSED VANCO TO PM NURSE
--- NOTE | 2020-02-03 19:45 | NUR ---
RECEIVED REPORT FROM DAY RN REGARDING THE PT FOR CONTINUITY OF CARE. PT ASLEEP BUT AROUSABLE. A/A/OX2, DENIES ANY PAIN AT THIS TIME. NO SIGN AND SYMPTOMS OF DISTRESS NOTED. ST WITH PAC'S ON BOARD CERTIFIED ARTS THERAPIST, HR-105.IVF INFUSING ORDERED. WILL CONTINUE MONITORING AND POC. CALL LIGHT WITHIN REACH.
[2020-02-03 20:00] VITALS: BP 127/71
[2020-02-03] MEDS ORDERED: VANCOMYCIN 750 MG in DEXTROSE 5% 250 ML IV SCH (21:00)
--- NOTE | 2020-02-03 22:10 | NUR ---
PT DAUGHTER CALLED AND UPDATED THEM WITH THE PT STATUS AND ALSO ANSWERED THEIR QUESTIONS.
--- NOTE | 2020-02-03 23:30 | NUR ---
PT NARINDER CALLED AND WANTED SOME UPDATE ABOUT THE PT/ FOLLOWED WHAT THE DAY RN TOLD ME THAT WE CAN ONLY GIVE UPDATE TO THE PT DAUGHTER. HUSSEIN BARCENAS MADE AWARE THAT THE PT IS ASLEEP AT THIS TIME AND COMFORTABLE.
[2020-02-04] VITALS: BP 131/70
[2020-02-04] MEDS: INSULIN LISPRO SLIDING SCALE 100 UNITS/ML VIAL SUBQ PRN ×2 (00:03→06:21)
--- NOTE | 2020-02-04 01:30 | NUR ---
Pt sleeping comfortably. Visible rise and fall of the chest noted. No sign and symptoms of distress noted at this time. Call light within reach.
[2020-02-04 04:00] VITALS: BP 137/69
--- NOTE | 2020-02-04 04:00 | NUR ---
VITAL SIGNS STABLE, AFEBRILE, SATING 98% ON 3L/NC. SR WITH PAC ON STAY CUTTER, HR-94.
[2020-02-04] MEDS: DEXTROSE 5% 1,000 ML IV SCH (04:20)
[2020-02-04] MEDS: BLOOD GLUCOSE MONITORING 1 DEV DEV FS SCH ×2 (06:22→12:00)
[2020-02-04 06:34] LABS: BASOPHILS # (AUTO) 0.1 K/uL (0.00-0.22); BASOPHILS % (AUTO) 0.3 % (0.0-2.0); EOSINOPHILS % (AUTO) 0.1 % (0.0-4.0); HEMOGLOBIN 9.8 g/dL (12.0-18.0); LYMPHOCYTES # (AUTO) 3.1 K/uL (2.0-11.5); MEAN CORPUSCULAR HEMOGLOBIN 29 pg (27-31); MEAN CORPUSCULAR HGB CONC 32 g/dL (33-37); MEAN CORPUSCULAR VOLUME 90.4 fL (80-94); MONOCYTES # (AUTO) 0.6 K/uL (0.8-1.0); MONOCYTES % (AUTO) 4.2 % (1.7-9.3); NEUTROPHILS % (AUTO) 74.4 % (42.2-75.2); PLATELET COUNT (AUTO) 90 K/uL (140-450); RED BLOOD CELL COUNT(AUTO) 3.43 MIL/uL (4.20-6.10); RED CELL DISTRIBUTION WIDTH 16.2 % (11.6-13.7); WHITE BLOOD COUNT (AUTO) 14.8 K/uL (4.8-10.8)
--- NOTE | 2020-02-04 06:42 | NUR ---
NO ACUTE EVENTS THROUGHOUT THE SHIFT. NO S/SX OF DISTRESS NOTED. NO COMPLAIN AT THIS TIME. ALL NEEDS ATTENDED. CALL LIGHT WITHIN REACH. WILL ENDORSE THE PT TO THE ONCOMING RN FOR CONTINUITY OF CARE.
[2020-02-04 06:59] LABS: ANION GAP 14.5 (8-16); CREATININE 2.2 mg/dL (0.6-1.3); POTASSIUM 3.5 mmol/L (3.5-5.1)
[2020-02-04 07:10] LABS: MAGNESIUM 2.1 mg/dL (1.8-2.4); PHOSPHORUS 3.2 mg/dL (2.5-4.9)
--- NOTE | 2020-02-04 07:43 | NUR ---
CALLED DR SAUL TO REPORT THE CPT CRITICAL VALUE,CALCIUM- 7.8, BUN-7.9 & CREATININE-2.2. SPOKE WITH THE EXCHANGE AND STATED THAT DR SUE IS PREBOARDER TODAY.AWAITING FOR MD TO CALL BACK.ENDORSED IT TO DANNI NORMAN.
[2020-02-04 08:00] VITALS: BP 111/77
[2020-02-04] MEDS: INSULIN LANTUS 100 UNITS/ML 10 ML VIAL SUBQ SCH (09:00)
[2020-02-04] MEDS ORDERED: SPIRONOLACTONE 25 MG TAB PO SCH (09:00)
[2020-02-04] MEDS ORDERED: CLINICAL MONITORING MC SCH (09:00)
--- NOTE | 2020-02-04 09:55 | NUR ---
WOUND CARE RE-EVALUATION NOTE: SKIN ASSESSMENT DONE , PT EYES OPEN AND ABLE TO FOLLOW SIMPLE DIRECTIONS, LBM X1 DURING ASSESSMENT. WOUNDS RESPONDING TO CURRENT TREATMENT PLAN, WILL CONTINUE TO FOLLOW. -SDTI TO LEFT HEEL RESOLVED -RIGHT /LEFT HANDS MULTIPLE PETECHIA/PURPURA, RESOLVED SKIN INTACT, TRACE EDEMA -MULTIPLE PETECHIA/PURPURA TO BILATERAL FEET CONTINUE TO IMPROVE -LEFT 3rd DIGIT TOE 0.3X0.3 CM ISCHEMIA BLACK SPOT REMAIN SAME CONDITION -PRESSURE ULCER INJURY STAGE 3, SACROCOCCYX 1.3X0.5X0.1CM, WOUND BED IS RED 100% GRANULATING TISSUE, LISE-WOUND SKIN CONTACT DERMATITIS IMPROVING -PRESSURE ULCER INJURY STAGE 3, LEFT BUTTOCK 2.5X2X0.1CM WOUND BED IS RED 100% GRANULATING TISSUE, MOIST NO ODOR, LISE WOUND SKIN CONTACT DERMATITIS IMPROVING - PRESSURE ULCER INJURY STAGE 3, RIGHT BUTTOCK 3.5X2.3X0.1CM WOUND BED IS RED 100% GRANULATING TISSUE, MOIST NO ODOR, LISE WOUND SKIN CONTACT DERMATITIS IMPROVING - LEFT ACHILLES AREA MULTIPLE PURPLE SPOT WITH LARGEST 0.5X0.5CM, SURROUNDING SKIN BLANCHABLE REDNESS -INCONTINENT ASSOCIATE DERMATITIS (IAD) TO: B/L GROINS EXTENDED TO SCROTAL WITH +1 EDEMA SKIN RED AND INTACT -PRESSURE ULCER INJURY SDTI RIGHT HEEL 3X2CM PURPLE COLOR WITH SKIN INTACT SURROUNDING SKIN BLANCHABLE REDNESS
[2020-02-04] MEDS: COLCHICINE 0.6 MG TAB PO SCH (11:12)
[2020-02-04] MEDS: HYDROCORTISONE NA SUCC 100 MG/2 ML VIAL IV SCH (11:13)
[2020-02-04] MEDS: VIT-B COMP/VIT-C/FOLIC ACID 1 TAB GT SCH (11:13)
[2020-02-04] MEDS: PANTOPRAZOLE 40 MG INJ VIAL IVP SCH (11:13)
[2020-02-04] MEDS: ZINC SULF 220 MG CAP GT SCH (11:13)
[2020-02-04] MEDS: NITROGLYCERIN 2% 1 GM PKT TP SCH (11:14)
[2020-02-04] MEDS: Z-GUARD PASTE TP SCH (13:25)
[2020-02-04] MEDS: FOAM DRESSING TP SCH (13:25)
[2020-02-04] MEDS: THERAHONEY GEL 42.5 GM TP SCH (13:25)
[2020-02-04] MEDS ORDERED: VANC750S IV (14:22)
[2020-02-04 15:39] VITALS: BP 111/77
== END 2020-02-04 16:23 | DRG 720 ==
LOC: MED 09:45 → EEVIPCON 09:45 → MIC 14:45 → MTU 01-28 19:59
PROVIDERS: ADMIT Internal Medicine; ATTEND Internal Medicine
PROC: 5A1955Z Respiratory Ventilation, Greater than 96 Consecutive Hours (ICD-10-PCS; principal; 2020-01-18)
PROC: 0BH17EZ Insertion of Endotracheal Airway into Trachea, Via Natural or Artificial Opening (ICD-10-PCS; 2020-01-18)
PROC: 02HV33Z Insertion of Infusion Device into Superior Vena Cava, Percutaneous Approach (ICD-10-PCS; 2020-01-19)
PROC: B548ZZA Ultrasonography of Superior Vena Cava, Guidance (ICD-10-PCS; 2020-01-19)
PROC: 0W9G3ZZ Drainage of Peritoneal Cavity, Percutaneous Approach (ICD-10-PCS; 2020-01-19)
PROC: 5A1D70Z Performance of Urinary Filtration, Intermittent, Less than 6 Hours Per Day (ICD-10-PCS; 2020-01-19)
DX: A41.02 Sepsis due to Methicillin resistant Staphylococcus aureus (principal); R65.21 Severe sepsis with septic shock; E87.2 Acidosis; Z86.73 Personal history of transient ischemic attack (TIA), and cerebral infarction without residual deficits; Z68.30 Body mass index [BMI] 30.0-30.9, adult; I13.0 Hypertensive heart and chronic kidney disease with heart failure and stage 1 through stage 4 chronic kidney disease, or unspecified chronic kidney disease; E11.22 Type 2 diabetes mellitus with diabetic chronic kidney disease; E87.5 Hyperkalemia; N18.3 Chronic kidney disease, stage 3 (moderate); N17.0 Acute kidney failure with tubular necrosis; K74.60 Unspecified cirrhosis of liver; I50.43 Acute on chronic combined systolic (congestive) and diastolic (congestive) heart failure; E79.0 Hyperuricemia without signs of inflammatory arthritis and tophaceous disease; D69.6 Thrombocytopenia, unspecified; E66.01 Morbid (severe) obesity due to excess calories; E87.0 Hyperosmolality and hypernatremia; J15.212 Pneumonia due to Methicillin resistant Staphylococcus aureus; Z20.828 Contact with and (suspected) exposure to other viral communicable diseases; J96.90 Respiratory failure, unspecified, unspecified whether with hypoxia or hypercapnia; E44.0 Moderate protein-calorie malnutrition
CPT/HCPCS: 36415; 36600; 71045; 80048; 80053; 80202; 81001; 82140; 82550; 82728; 82803; 82945; 82948; 83605; 83615; 83735; 83880; 84100; 84157; 84484; 84550; 85025; 85379; 85384; 85610; 85730; 86140; 86704; 86706; 86708; 86709; 86803; 87040; 87070; 87081; 87086; 87186; 87205; 87340; 87420; 87804; 89051; 90935; 92610; 93005; 93925; 93970; 93971; 94002; 94003; 96365; 96375; 97110; 97112; 97161-GP; 97530; 99291; C1751; C9113; J0610; J0696; J1644; J1720; J1815; J1940; J2250; J2543; J2704; J2997; J3010; J3370; J3480; J3490; J7030; J7060; J7070; P9046; Q0092; U0003-CS